=== PATIENT | male | born 1980 | race Two or more races ===

== ENCOUNTER 2017-05-28 13:26 | Inpatient (IN) | payer OTHER ==
[2017-05-28] MEDS ORDERED: ONDANSETRON 4 MG/2 ML VIAL IVPB ONE (13:35)
[2017-05-28] MEDS ORDERED: morphine CARPU-JECT 4 MG/1 ML DISP.SYRIN IVPUSH ONE ×2 (13:35→15:30)
[2017-05-28] MEDS ORDERED: KETOROLAC TROMETHAMINE 30 MG/1 ML VIAL IVPUSH ONE (13:35)
[2017-05-28] MEDS ORDERED: SODIUM CHLORIDE 1,000 ML IV STA (13:35)
[2017-05-28] MEDS ORDERED: morphine SULFATE 4 MG/ML VIAL ONE ×2 (13:36→15:33)
--- NOTE | 2017-05-28 13:39 | PDOC ---
History of Present Illness - History of Present Illness Initial Comments: 05/28/17 14:49 37 year old male, with no significant past medical history, who presents to the emergency room [facility] for right sided flank pain. He describes the pain as sharp and 10/10 in severity that started last night. The patient is a poor historian. Denies dysuria, hematuria, urinary frequency. Denies nausea, vomiting. Denies fever, chills. Denies chest pain. Allergies: NKA PCP: None <Penny Lam - Last Filed: 05/28/17 16:36> - General History Source: Patient Exam Limitations: No Limitations <Reginald Cisneros - Last Filed: 05/28/17 17:07> - General Stated Complaint: SOB Time Seen by Provider: 05/28/17 13:34 Past History <Penny Lam - Last Filed: 05/28/17 16:36> - Suicide/Smoking/Psychosocial Hx Smoking Status: Yes Smoking History: Current every day smoker Number of Cigarettes Smoked Daily: 7 <Reginald Cisneros - Last Filed: 05/28/17 17:07> - Past Medical History Allergies/Adverse Reactions: Allergies Allergy/AdvReac Type Severity Reaction Status Date / Time No Known Allergies Allergy Verified 11/18/12 18:27 Home Medications: Ambulatory Orders NK [No Known Home Medication] 05/28/17 Review of Systems - Review of Systems Able to Perform ROS?: Yes Comments:: 05/28/17 14:50 GENERAL/CONSTITUTIONAL: No fever or chills. No weakness. HEAD, EYES, EARS, NOSE AND THROAT: No change in vision. No ear pain or discharge. No sore throat. CARDIOVASCULAR: No chest pain or shortness of breath. RESPIRATORY: No cough, wheezing, or hemoptysis. GASTROINTESTINAL: No nausea, vomiting, diarrhea or constipation. GENITOURINARY:+ right sided flank pain that radiates to the right groin. No dysuria, frequency, or change in urination. MUSCULOSKELETAL: No joint or muscle swelling or pain. No neck pain SKIN: No rash NEUROLOGIC: No headache, vertigo, loss of consciousness, or change in strength/ sensation. ENDOCRINE: No increased thirst. No abnormal weight change. HEMATOLOGIC/LYMPHATIC: No anemia, easy bleeding, or history of blood clots. ALLERGIC/IMMUNOLOGIC: No hives or skin allergy. <KeonsaulPenny - Last Filed: 05/28/17 16:36> *Physical Exam - Vital Signs Last Vital Signs Temp Pulse Resp BP Pulse Ox 100.4 F H 106 H 24 150/82 95 05/28/17 13:45 05/28/17 13:45 05/28/17 13:45 05/28/17 13:45 05/28/17 13:50 - Physical Exam Comments: 05/28/17 14:50 GENERAL: Awake, alert, and fully oriented. +Uncomfortable appearing HEAD: No signs of trauma EYES: PERRLA, EOMI, sclera anicteric, conjunctiva clear ENT: Auricles normal inspection, hearing grossly normal, nares patent, oropharynx clear without exudates. Moist mucosa NECK: Normal ROM, supple, no lymphadenopathy, JVD, or masses LUNGS: Breath sounds equal, clear to auscultation bilaterally. No wheezes, and no crackles HEART: Regular rate and rhythm, normal S1 and S2, no murmurs, rubs or gallops ABDOMEN: Soft, nontender, normoactive bowel sounds. No guarding, no rebound. No masses BACK: +Right flank pain with right CVA tenderness EXTREMITIES: Normal range of motion, no edema. No clubbing or cyanosis. No cords, erythema, or tenderness NEUROLOGICAL: Cranial nerves II through XII grossly intact. Normal speech, normal gait SKIN: Warm, Dry, normal turgor, no rashes or lesions noted. <KeonsaulPenny - Last Filed: 05/28/17 16:36> Heart Score/ECG Review #1 ECG reviewed & interpreted by me at: 17:00 05/28/17 17:06 NSR 87, LVH, no std/blayne, T wave aVF, QTC 418 msec <Reginald Cisneros - Last Filed: 05/28/17 17:07> ED Treatment Course - LABORATORY CBC & Chemistry Diagram: 05/28/17 13:40 05/28/17 13:40 - ADDITIONAL ORDERS Additional order review: Laboratory Results 05/28/17 13:40 Sodium 139 Potassium 4.1 Chloride 100 Carbon Dioxide 29 Anion Gap 10 BUN 10 Creatinine 0.9 Creat Clearance w eGFR > 60 Random Glucose 97 Calcium 9.0 Total Bilirubin 0.7 AST 19 ALT 35 Alkaline Phosphatase 101 Total Protein 7.8 Albumin 3.8 Lipase 100 05/28/17 13:40 RBC 4.72 MCV 93.3 MCHC 33.3 RDW 12.6 MPV 8.7 Neutrophils % 88.0 H Lymphocytes % 6.6 L Monocytes % 4.8 Eosinophils % 0.3 Basophils % 0.3 - Medications Given in the ED: ED Medications Discontinued Medications Generic Name Dose Route Start Last Admin Trade Name Frefrancis PRN Reason Stop Dose Admin Sodium Chloride 1,000 mls @ 1,000 mls/hr 05/28/17 13:35 05/28/17 13:47 Normal Saline - IV 05/28/17 14:34 1,000 mls/hr ASDIR STA Administration Ketorolac Tromethamine 30 mg 05/28/17 13:35 05/28/17 13:41 Toradol Injection - IVPUSH 05/28/17 13:36 30 mg ONCE ONE Administration Morphine Sulfate 4 mg 05/28/17 13:35 05/28/17 13:41 Morphine Injection - IVPUSH 05/28/17 13:36 4 mg ONCE ONE Administration Ondansetron HCl 4 mg 05/28/17 13:35 05/28/17 13:47 Zofran Injection IVPB 05/28/17 13:36 4 mg ONCE ONE Administration <Penny Lam - Last Filed: 05/28/17 16:36> - LABORATORY CBC & Chemistry Diagram: 05/28/17 13:40 05/28/17 13:40 - RADIOLOGY Radiology Studies Ordered: Category Date Time Status SPIRAL- RENAL-STONE CT [CT] Stat CT Scan 05/28/17 13:35 Ordered <Reginald Cisneros - Last Filed: 05/28/17 17:07> Medical Decision Making - Medical Decision Making 05/28/17 13:37 A portion of this note was documented by scribe services under my direction. I have reviewed the details of the note, within reason, and agree with the documentation with the following case summary and management plan written by me. Patient treated in the ED. Nursing notes are reviewed and incorporated into the medical decision-making. Vital signs reviewed. Peripheral IV access obtained by the nurse, laboratory studies are drawn and sent, reviewed and interpreted by myself. 37 year old M c/ no past medical history presents with right flank pain since yesterday night. Reports is a persistent "strong" pain in the right flank. Denies nausea, fevers. Does NOT have SOB. Denies dysuria, fevers. Pt appears to most likely have renal colic. Will r/o pyelonephritis, infected kidney stone. Labs, UA, pain control, spiral CT and reassess. 05/28/17 16:45 CBC, BMP 05/28/17 13:40 05/28/17 13:40 CMP Sodium 139 mmol/L (136-145) 05/28/17 13:40 Potassium 4.1 mmol/L (3.5-5.1) 05/28/17 13:40 Chloride 100 mmol/L (98-107) 05/28/17 13:40 Carbon Dioxide 29 mmol/L (21-32) 05/28/17 13:40 Anion Gap 10 (8-16) 05/28/17 13:40 BUN 10 mg/dL (7-18) 05/28/17 13:40 Creatinine 0.9 mg/dL (0.7-1.3) 05/28/17 13:40 Creat Clearance w eGFR > 60 (>60) 05/28/17 13:40 Random Glucose 97 mg/dL (74-106) 05/28/17 13:40 Calcium 9.0 mg/dL (8.5-10.1) 05/28/17 13:40 Total Bilirubin 0.7 mg/dL (0.2-1.0) 05/28/17 13:40 AST 19 U/L (15-37) 05/28/17 13:40 ALT 35 U/L (12-78) 05/28/17 13:40 Alkaline Phosphatase 101 U/L (45-117) 05/28/17 13:40 Total Protein 7.8 g/dl (6.4-8.2) 05/28/17 13:40 Albumin 3.8 g/dl (3.4-5.0) 05/28/17 13:40 Lipase 100 U/L (73-393) 05/28/17 13:40 Urine Test Results Urine Color Dkyellow 05/28/17 15:41 Urine Appearance Cloudy 05/28/17 15:41 Urine pH 5.0 (5.0-8.0) 05/28/17 15:41 Ur Specific [place] 1.023 (1.001-1.035) 05/28/17 15:41 Urine Protein Negative (NEGATIVE) 05/28/17 15:41 Urine Glucose (UA) Negative (NEGATIVE) 05/28/17 15:41 Urine Ketones Negative (NEGATIVE) 05/28/17 15:41 Urine Blood Negative (NEGATIVE) 05/28/17 15:41 Urine Nitrite Negative (NEGATIVE) 05/28/17 15:41 Urine Bilirubin Negative (NEGATIVE) 05/28/17 15:41 Chest xray concerning for atelectasis vs. infiltrates. CT abdomen and pelvis. No kidney stones, but noted with bilateral PNA. O2 saturation of 92% here. Pt reports feeling better. However, given bilateral PNA and elevated WBC. Will admit the patient. RUQ ultrasound ordered to evaluate biliary pathology. Case discussed with Dr. Treadwell who accepts the patient for med/surg admission. Case discussed in detail with admitting physician including history, physical exam and ancillary studies. Admitting physician has assumed care for the patient, will follow all pending diagnostics and will complete the evaluation and treatment. <Reginald Cisneros - Last Filed: 05/28/17 17:07> *DC/Admit/Observation/Transfer - Attestations Scribe Attestion: 05/28/17 14:51 Documentation prepared by GASPER Antoine, acting as medical research tech for Reginald Cisneros MD. <Penny Lam - Last Filed: 05/28/17 16:36> - Discharge Dispostion Admit: Yes <Reginald Cisneros - Last Filed: 05/28/17 17:07> Diagnosis at time of Disposition: Pneumonia Qualifiers: Pneumonia type: due to unspecified organism Laterality: bilateral Lung location : unspecified part of lung Qualified Code(s): J18.9 - Pneumonia, unspecified organism - Discharge Dispostion Condition at time of disposition: Stable
[2017-05-28] MEDS ORDERED: ONDANSETRON 4 MG/2 ML VIAL ONE (13:42)
[2017-05-28 13:47] VITALS: BMI 39.1
[2017-05-28 14:05] LABS: BASO % 0.3 % (0-2.0); EOS % 0.3 % (0-4.5); MCH 31.1 pg (25.7-33.7); MCHC 33.3 g/dl (32.0-35.9); MEAN CELL VOLUME 93.3 fl (80-96); MEAN PLT VOLUME 8.7 fl (7.5-11.1); PLATELET COUNT 205 K/MM3 (134-434); RDW 12.6 % (11.9-15.9); WHITE BLOOD COUNT 19.2 K/mm3 (4.0-10.0)
[2017-05-28 14:16] LABS: ALBUMIN 3.8 g/dl (3.4-5.0); ANION GAP 10 (8-16); BILIRUBIN,TOTAL 0.7 mg/dL (0.2-1.0); CO2 29 mmol/L (21-32); CREATININE 0.9 mg/dL (0.7-1.3); GLUCOSE,RANDOM 97 mg/dL (74-106); SGOT/AST 19 U/L (15-37); SGPT/ALT 35 U/L (12-78); TOT PROT 7.8 g/dl (6.4-8.2)
[2017-05-28 14:17] LABS: ALK PHOS 101 U/L (45-117)
[2017-05-28 16:18] LABS: URINE APPEARANCE CLOUDY; URINE BILIRUBIN NEGATIVE (NEGATIVE); URINE BLOOD NEGATIVE (NEGATIVE); URINE COLOR DKYELLOW; URINE GLUCOSE (UA) NEGATIVE (NEGATIVE); URINE KETONE NEGATIVE (NEGATIVE); URINE NITRITE NEGATIVE (NEGATIVE); URINE PROTEIN NEGATIVE (NEGATIVE); URINE UROBILINOGEN NEGATIVE mg/dL (0.2-1.0)
[2017-05-28] MEDS ORDERED: AZITHROMYCIN IVPB 500 MG in DEXTROSE 5%-WATER - 250 ML IVPB ONE (16:28)
[2017-05-28] MEDS ORDERED: CEFTRIAXONE 1 GM in DEXTROSE 5%-WATER - 50 ML IVPB ONE (16:28)
[2017-05-28] MEDS ORDERED: ACETAMINOPHEN 1000 MG/100 ML VIAL (NON FORMULARY) IVPB ONE (16:35)
[2017-05-28] MEDS ORDERED: CEFTRIAXONE 1 GM/50 ML BAG ONE (16:45)
[2017-05-28] MEDS ORDERED: AZITHROMYCIN IVPB 250 ML IVPB ONE (16:45)
[2017-05-28 21:06] LABS: URINE LEUK ESTERASE Negative (NEGATIVE)
--- NOTE | 2017-05-28 22:28 | HP ---
Admitting History and Physical - Primary Care Physician PCP: Jennifer Treadwell - Admission History of Present Illness: 37 year old male, with no significant past medical history, who presents to the emergency room BIBA for right sided flank pain. He describes the pain as sharp and 10/10 in severity that started last night. The patient is a poor historian. Denies dysuria, hematuria, urinary frequency. Denies nausea, vomiting. Denies fever, chills. Denies chest pain. - Smoking History Smoking history: Current every day smoker Aproximately how many cigarettes per day: 7 - Alcohol/Substance Use Hx Alcohol Use: No Home Medications - Allergies Allergies/Adverse Reactions: Allergies Allergy/AdvReac Type Severity Reaction Status Date / Time No Known Allergies Allergy Verified 11/18/12 18:27 - Home Medications Home Medications: Ambulatory Orders NK [No Known Home Medication] 05/28/17 Physical Examination Vital Signs: Vital Signs Temperature 99.4 F 05/28/17 19:43 Pulse Rate 83 05/28/17 19:43 Respiratory Rate 18 05/28/17 19:43 Blood Pressure 122/61 05/28/17 19:43 O2 Sat by Pulse Oximetry (%) 96 05/28/17 19:43 Constitutional: Yes: No Distress HENT: Yes: Atraumatic Neck: Yes: Tenderness Cardiovascular: Yes: Regular Rate and Rhythm Respiratory: Yes: Rhonchi Gastrointestinal: Yes: Normal Bowel Sounds Extremities: Yes: WNL Neurological: Yes: Alert, Oriented Labs: CBC, BMP 05/28/17 13:40 05/28/17 13:40 Problem List - Problems (1) Pneumonia Assessment/Plan: on iv abx flu negative bcx negative Code(s): J18.9 - PNEUMONIA, UNSPECIFIED ORGANISM Qualifiers: Pneumonia type: due to unspecified organism Laterality: bilateral Lung location: unspecified part of lung Qualified Code(s): J18.9 - Pneumonia, unspecified organism Assessment/Plan Laboratory Tests 05/28/17 05/28/17 05/28/17 13:40 13:40 15:41 WBC 19.2 H RBC 4.72 Hgb 14.7 Hct 44.1 MCV 93.3 MCH 31.1 MCHC 33.3 RDW 12.6 Plt Count 205 MPV 8.7 Neutrophils % 88.0 H Lymphocytes % 6.6 L Monocytes % 4.8 Eosinophils % 0.3 Basophils % 0.3 Sodium 139 Potassium 4.1 Chloride 100 Carbon Dioxide 29 Anion Gap 10 BUN 10 Creatinine 0.9 Creat Clearance w eGFR > 60 Random Glucose 97 Lactic Acid Calcium 9.0 Total Bilirubin 0.7 AST 19 ALT 35 Alkaline Phosphatase 101 Total Protein 7.8 Albumin 3.8 Lipase 100 Urine Color Dkyellow Urine Appearance Cloudy Urine pH 5.0 Ur Specific [place] 1.023 Urine Protein Negative Urine Glucose (UA) Negative Urine Ketones Negative Urine Blood Negative Urine Nitrite Negative Urine Bilirubin Negative Urine Urobilinogen Negative Ur Leukocyte Esterase Negative 05/28/17 16:40 WBC RBC Hgb Hct MCV MCH MCHC RDW Plt Count MPV Neutrophils % Lymphocytes % Monocytes % Eosinophils % Basophils % Sodium Potassium Chloride Carbon Dioxide Anion Gap BUN Creatinine Creat Clearance w eGFR Random Glucose Lactic Acid 1.4 Calcium Total Bilirubin AST ALT Alkaline Phosphatase Total Protein Albumin Lipase Urine Color Urine Appearance Urine pH Ur Specific [place] Urine Protein Urine Glucose (UA) Urine Ketones Urine Blood Urine Nitrite Urine Bilirubin Urine Urobilinogen Ur Leukocyte Esterase Active Medications Generic Name Dose Route Start Last Admin Trade Name Connerq PRN Reason Stop Dose Admin Acetaminophen 650 mg 06/01/17 18:50 Tylenol - PO Q6H PRN FEVER OR PAIN Albuterol/Ipratropium 1 amp 06/01/17 18:50 Duoneb - NEB Q4H PRN Chlorhexidine Gluconate 1 applic 06/01/17 22:00 Hibiclens For Decolonization - TP HS ROXANE Azithromycin 500 mg/ Dextrose 250 mls @ 250 mls/hr 06/01/17 18:00 06/01/17 17 :58 IVPB 250 mls/hr DAILY ROXANE Administration Ceftriaxone Sodium 2 gm/ 100 mls @ 200 mls/hr 06/02/17 10:00 Dextrose IVPB DAILY ROXANE Ketorolac Tromethamine 30 mg 06/01/17 18:50 Toradol Injection - IVPUSH 06/03/17 12:27 Q8H PRN PAIN Mupirocin 1 applic 06/01/17 22:00 Bactroban Ointment (For Decolonization) - NS 06/06/17 21:59 BID ROXANE
[2017-05-29] MEDS ORDERED: PT OWN MED DRAWER 7, Y5N ONE ×2 (08:56→09:56)
[2017-05-29 09:12] LABS: BASO % 0.3 % (0-2.0); EOS % 0.1 % (0-4.5); MCH 31.3 pg (25.7-33.7); MCHC 33.3 g/dl (32.0-35.9); MEAN PLT VOLUME 8.9 fl (7.5-11.1); PLATELET COUNT 175 K/MM3 (134-434); RDW 12.9 % (11.9-15.9); WHITE BLOOD COUNT 17.9 K/mm3 (4.0-10.0)
[2017-05-29 09:32] LABS: ALBUMIN 2.8 g/dl (3.4-5.0); ANION GAP 8 (8-16); BILIRUBIN,TOTAL 0.9 mg/dL (0.2-1.0); CALCIUM 8.6 mg/dL (8.5-10.1); CO2 28 mmol/L (21-32); CREATININE 1.1 mg/dL (0.7-1.3); GLUCOSE,RANDOM 117 mg/dL (74-106); SGOT/AST 10 U/L (15-37); SGPT/ALT 21 U/L (12-78); TOT PROT 6.3 g/dl (6.4-8.2)
[2017-05-29 09:33] LABS: ALK PHOS 78 U/L (45-117)
[2017-05-29] MEDS ORDERED: CEFTRIAXONE 1 G/50 ML PREMIX 50 ML IVPB SCH (10:00)
[2017-05-29] MEDS: ACETAMINOPHEN 325 MG TABLET (FP) PO PRN ×2 (10:05→16:06)
[2017-05-29] MEDS: AZITHROMYCIN IVPB 500 MG in DEXTROSE 5%-WATER - 250 ML IVPB SCH (10:21)
--- NOTE | 2017-05-29 10:25 | EKG ---
Test Reason : Blood Pressure : / mmHG Vent. Rate : 087 BPM Atrial Rate : 087 BPM P-R Int : 136 ms QRS Dur : 106 ms QT Int : 348 ms P-R-T Axes : 019 -04 003 degrees QTc Int : 418 ms NORMAL SINUS RHYTHM MODERATE VOLTAGE CRITERIA FOR LVH, MAY BE NORMAL VARIANT BORDERLINE ECG NO PREVIOUS ECGS AVAILABLE Confirmed by MIC ALFARO, KIANA ([id number]) on 05/29/2017 10:25:31 AM Referred By: Confirmed By:KIANA HAILE MD
--- NOTE | 2017-05-29 12:26 | CON.PULM ---
Consult Consult Specialty:: PULMONARY Referred by:: Dr. Treadwell Reason for Consultation:: pneumonia - History of Present Illness Chief Complaint: right flank pain History of Present Illness: 37yo male without significant past medical history who was admitted with right flank pain x 2 days. Pain sharp, worse with movement and deep inspiration. + fevers and chills. Nonproductive cough. No sick contacts. Did not receive flu shot. He is a 1 PPD smoker, not currently working. - History Source History Provided By: Patient, Family Member, Medical Record Limitations to Obtaining History: Language Barrier - Alcohol/Substance Use Hx Alcohol Use: No - Smoking History Smoking history: Current every day smoker Aproximately how many cigarettes per day: 7 Home Medications - Allergies Allergies/Adverse Reactions: Allergies Allergy/AdvReac Type Severity Reaction Status Date / Time No Known Allergies Allergy Verified 11/18/12 18:27 - Home Medications Home Medications: Ambulatory Orders NK [No Known Home Medication] 05/28/17 Review of Systems - Review of Systems Constitutional: reports: Chills, Fever. denies: Weakness Eyes: denies: Recent Change in Vision HENT: denies: Nasal Congestion, Throat Pain Neck: denies: Stiffness, Tenderness Cardiovascular: denies: Chest Pain, Palpitations, Shortness of Breath Respiratory: reports: Cough. denies: Wheezing Gastrointestinal: denies: Abdominal Pain, Nausea, Vomiting Genitourinary: reports: Flank Pain. denies: Dysuria, Hematuria Musculoskeletal: reports: Back Pain Neurological: denies: Dizziness, Headache Physical Exam Vital Sings: Vital Signs Temperature 99.6 F 05/29/17 09:00 Pulse Rate 90 05/29/17 09:00 Respiratory Rate 20 05/29/17 09:00 Blood Pressure 127/64 05/29/17 09:00 O2 Sat by Pulse Oximetry (%) 95 05/28/17 22:00 Constitutional: Yes: Calm Eyes: Yes: Conjunctiva Clear, EOM Intact HENT: Yes: Atraumatic, Normocephalic Neck: Yes: Supple, Trachea Midline Cardiovascular: Yes: Regular Rate and Rhythm Respiratory: Yes: Regular, Diminished (decreased at the bases) ...Clubbing: No Gastrointestinal: Yes: Normal Bowel Sounds, Soft. No: Tenderness Edema: No Labs: CBC, BMP 05/29/17 08:25 05/29/17 08:25 Imaging - Results Chest X-ray: Report Reviewed, Image Reviewed (bibasilar infiltrates) Cat Scan: Report Reviewed, Image Reviewed Problem List - Problems (1) Pneumonia Code(s): J18.9 - PNEUMONIA, UNSPECIFIED ORGANISM Qualifiers: Pneumonia type: due to unspecified organism Laterality: bilateral Lung location: unspecified part of lung Qualified Code(s): J18.9 - Pneumonia, unspecified organism Assessment/Plan Community Acquired Pneumonia Flank Pain likely from pleurisy - agree with ceftriaxone/azithromycin - f/u cultures - send urinary antigens - pain control - incentive spirometry - DVT prophylaxis Thank you for this consult Jay Lawton MD
--- NOTE | 2017-05-29 14:49 | CON.ID ---
Consult Consult Specialty:: Infectious Disease Reason for Consultation:: PNA - History of Present Illness Chief Complaint: Rt flank pain History of Present Illness: 37 y.o. male with no specific PMH presents with c/o of severe, sharp Rt flank pain that began 2 nights ago. States pain woke him up from sleep and on sunday could not walk due to pain. Reports that pain worsens with deep breaths. Denies productive cough, fever, chills. He also denies dysuria/urinary frequency, abd pain/n/v/d. In ER noted to have elevated wbc count and was febrile (tmax 100.9)/ tachycardic. He smokes almost 1 PPD and smokes crack. No recent travel/sick contacts. 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: Alzheimer's, CVA, Dementia, Migraine, Multiple Sclerosis, Peripheral Neuropathy, Parkinson's, Seizure, Syncope, TIA, Vertigo, Other Cardio/Vascular: No: AFIB, Aneurysm, Aortic Insufficiency, Aortic Stenosis, CAD , CHF, Deep Vein Thrombosis, HTN, Hyperlipdemia, SC, Mitral Insufficiency, Mitral Stenosis, Murmur, Pulmonary Hypertension, Other Pulmonary: No: Asthma, Bronchitis, Cancer, COPD, O2 Dependent, Pneumonia, Previously Intubated, Pulmonary Embolus, Pulmonary Fibrosis, Sleep Apnea, Other Gastrointestinal: No: Ascites, Cancer, Constipation, Crohn's Disease, Diverticulitis, Diverticulosis, Esophageal Varices, Gastritis, GERD, GI Bleed, Hemorrhoids, Hiatal Hernia, Inflamatory Bowel Disease, Irritable Bowel Disease, Pancreatitis, Peptic Ulcer Disease, Ulcerative Colitis, Other Hepatobiliary: No: Cirrhosis, Cholelithiasis, Cholecystitis, Choledocholithiasis , Hepatitis A, Hepatitis B, Hepatitis C, Other Renal/: No: Renal Failure, Renal Inusuff, BPH, Cancer, Hematuria, Hemodialysis , Neurogenic Bladder, Renal Calculi, UTI, Other Heme/Onc: No: Anemia, B12 Deficiency, Bleeding Disorder, Cancer, Current Chemotherapy, Current Radiation Therapy, Hemochromatosis, Hypercoaguable State, Myeloproliferative Synd, Sickle Cell Disease, Sickle Cell Trait, Thrombocytopenia, Other Infectious Disease: No: AIDS, C-Diff, Herpes Zoster, HIV, MRSA, STD's, Tuberculosis, VREF, Other Psych: No: Addictions, Anxiety, Bipolar, Depression, Panic, Psychosis, Schizophrenia, Other Musculoskeletal: No: Bursitis, Chronic low back pain, Hemiparesis, Hemiplegia, Osteoarthritis, Paraplegia, Other Rheumatology: No: Fibromyalgia, Gout, Lupus, Rheumatoid Arthritis, Sarcoidosis, Vasculitis, Other ENT: No: Allergic Rhinitis, Sinusitis, Other Endocrine: No: [place]'s Disease, Michael's Disease, Diabetes Insipidus, Diabetes Mellitus, Hyperparathyroidism, Hyperthyroidism, Hypothyroidism, Osteopenia, SIADH, Other Dermatology: No: Basal Cell, Cellulitis, Eczema, Melanoma, Psoriasis, Squamous Cell, Other - Past Surgical History Past Surgical History: No: None, AAA Repair, AICD, Amputation, Appendectomy, Arthrosocopy, AV Fistula/Graft, Bariatric Surgery, Breast Biopsy, Bypass, CABG, Carotid Endarterectomy, Cataract Removal, Cholecystectomy, Colectomy, Colonoscopy, Colostomy, Craniotomy, , Cystectomy, Hernia Repair, Hysterectomy, Ileal Conduit, Ileosotomy, Joint Replacement, Kidney Transplant, Laminectomy, Liver Transplant, Mastectomy, Nephrectomy, Oopherectomy, Orchiectomy, Permanent Pacemaker, Prostatectomy, Splenectomy, Stent, Thoracotomy , TURP, Tonsillectomy, Tubal Ligation, Upper Endoscopy, Valve Replacement, Vasectomy, Vein Stripping/Ligation - Alcohol/Substance Use Hx Alcohol Use: No Date of Last Use: 05/26/17 (smokes crack) - Smoking History Smoking history: Current every day smoker Aproximately how many cigarettes per day: 7 - Social History Usual Living Arrangement: Other (with parents, , and child) History of Recent Travel: No Home Medications - Allergies Allergies/Adverse Reactions: Allergies Allergy/AdvReac Type Severity Reaction Status Date / Time No Known Allergies Allergy Verified 11/18/12 18:27 - Home Medications Home Medications: Ambulatory Orders NK [No Known Home Medication] 05/28/17 Family Disease History - Family Disease History Family History: Unable to Obtain Review of Systems - Review of Systems Constitutional: reports: Fever Eyes: reports: No Symptoms HENT: reports: No Symptoms Neck: reports: No Symptoms Cardiovascular: reports: No Symptoms Gastrointestinal: reports: No Symptoms (Rt flank pain), Other Genitourinary: reports: No Symptoms Musculoskeletal: reports: No Symptoms Integumentary: reports: No Symptoms Neurological: reports: No Symptoms Endocrine: reports: No Symptoms Hematology/Lymphatic: reports: No Symptoms Psychiatric: reports: No Symptoms Pain Intensity: 10 Physical Exam Vital Signs: Vital Signs Temperature 99.6 F 05/29/17 09:00 Pulse Rate 90 05/29/17 09:00 Respiratory Rate 20 05/29/17 09:00 Blood Pressure 127/64 05/29/17 09:00 O2 Sat by Pulse Oximetry (%) 95 05/28/17 22:00 Constitutional: Yes: No Distress Eyes: Yes: WNL HENT: Yes: WNL Neck: Yes: Supple Cardiovascular: Yes: Regular Rate and Rhythm Respiratory: Yes: Cough, Rales (bases b/l), Other (pleuritic chest pain) Gastrointestinal: Yes: Normal Bowel Sounds, Soft, Other (Rt flank pain with deep inspiration) Renal/: Yes: WNL Musculoskeletal: Yes: WNL Extremities: Yes: WNL Integumentary: Yes: WNL Neurological: Yes: Alert, Oriented Psychiatric: Yes: Alert Labs: CBC, BMP 05/29/17 08:25 05/29/17 08:25 CMP Sodium 137 mmol/L (136-145) 05/29/17 08:25 Potassium 3.9 mmol/L (3.5-5.1) 05/29/17 08:25 Chloride 101 mmol/L (98-107) 05/29/17 08:25 Carbon Dioxide 28 mmol/L (21-32) 05/29/17 08:25 Anion Gap 8 (8-16) 05/29/17 08:25 BUN 15 mg/dL (7-18) D 05/29/17 08:25 Creatinine 1.1 mg/dL (0.7-1.3) D 05/29/17 08:25 Creat Clearance w eGFR > 60 (>60) 05/29/17 08:25 Random Glucose 117 mg/dL (74-106) H D 05/29/17 08:25 Lactic Acid 1.4 mmol/L (0.4-2.0) 05/28/17 16:40 Calcium 8.6 mg/dL (8.5-10.1) 05/29/17 08:25 Total Bilirubin 0.9 mg/dL (0.2-1.0) D 05/29/17 08:25 AST 10 U/L (15-37) L D 05/29/17 08:25 ALT 21 U/L (12-78) D 05/29/17 08:25 Alkaline Phosphatase 78 U/L (45-117) D 05/29/17 08:25 Total Protein 6.3 g/dl (6.4-8.2) L 05/29/17 08:25 Albumin 2.8 g/dl (3.4-5.0) L D 05/29/17 08:25 Lipase 100 U/L (73-393) 05/28/17 13:40 Microbiology 05/28/17 19:40 Nasopharyngeal Swab Influenza Types A,B Antigen (JAHAIRA) - Final 05/28/17 19:40 Nasopharyngeal Swab - Final Imaging - Results Chest X-ray: Report Reviewed Cat Scan: Report Reviewed Problem List - Problems (1) Leukocytosis Code(s): D72.829 - ELEVATED WHITE BLOOD CELL COUNT, UNSPECIFIED (2) Fever Code(s): R50.9 - FEVER, UNSPECIFIED (3) Pneumonia Code(s): J18.9 - PNEUMONIA, UNSPECIFIED ORGANISM Qualifiers: Pneumonia type: due to unspecified organism Laterality: bilateral Lung location: unspecified part of lung Qualified Code(s): J18.9 - Pneumonia, unspecified organism Assessment/Plan 37 y.o. male with Rt side/flank/back pain , pleuritic chest pain x 2 days Bibasilar PNA - increase Ceftriaxone to 2 g IV daily, continue zithromax - monitor cbc trend, vitals - urinary antigens currently stable will f/u
[2017-05-29] MEDS ORDERED: CEFTRIAXONE 1 GM in DEXTROSE 5%-WATER - 50 ML IVPB ONE (15:06)
[2017-05-29] MEDS ORDERED: CEFTRIAXONE 1 G/50 ML PREMIX 50 ML IVPB ONE (15:15)
[2017-05-29] MEDS: KETOROLAC TROMETHAMINE 30 MG/1 ML VIAL IVPUSH PRN (16:51)
[2017-05-29] MEDS: VANCOMYCIN 1,250 MG in DEXTROSE 5%-WATER - 250 ML IVPB SCH (17:32)
--- NOTE | 2017-05-29 18:49 | PN ---
Progress Note, Physician History of Present Illness: feeling better - Current Medication List Current Medications: Active Medications Acetaminophen (Tylenol -) 650 mg PO Q6H PRN PRN Reason: FEVER OR PAIN Last Admin: 05/29/17 16:06 Dose: 650 mg Azithromycin 500 mg/ Dextrose 250 mls @ 250 mls/hr IVPB DAILY [facility] Last Admin: 05/29/17 10:21 Dose: 250 mls/hr Ceftriaxone Sodium 2 gm/ (Dextrose) 100 mls @ 200 mls/hr IVPB DAILY [facility] Vancomycin HCl 1,250 mg/ (Dextrose) 250 mls @ 166.667 mls/hr IVPB Q12H [facility] PRN Reason: Protocol Last Admin: 05/29/17 17:32 Dose: 166.667 mls/hr Ketorolac Tromethamine (Toradol Injection -) 30 mg IVPUSH Q8H PRN PRN Reason: PAIN Stop: 06/03/17 12:27 Last Admin: 05/29/17 16:51 Dose: 30 mg - Objective Vital Signs: Vital Signs Temperature 99.6 F 05/29/17 09:00 Pulse Rate 90 05/29/17 09:00 Respiratory Rate 20 05/29/17 09:00 Blood Pressure 127/64 05/29/17 09:00 O2 Sat by Pulse Oximetry (%) 91 L 05/29/17 09:45 Constitutional: Yes: No Distress HENT: Yes: Atraumatic Neck: Yes: Supple Cardiovascular: Yes: Regular Rate and Rhythm Respiratory: Yes: Rhonchi Gastrointestinal: Yes: Normal Bowel Sounds Extremities: Yes: WNL Neurological: Yes: Alert, Oriented Labs: CBC, BMP 05/29/17 08:25 05/29/17 08:25 Problem List - Problems (1) Pneumonia Assessment/Plan: on iv abx flu negative bcx negative Code(s): J18.9 - PNEUMONIA, UNSPECIFIED ORGANISM Qualifiers: Pneumonia type: due to unspecified organism Laterality: bilateral Lung location: unspecified part of lung Qualified Code(s): J18.9 - Pneumonia, unspecified organism
[2017-05-29] MEDS ORDERED: FUROSEMIDE 40 MG/4 ML INJECTABLE VIAL IVPUSH ONE (19:36)
[2017-05-29] MEDS ORDERED: CHLORHEXIDINE GLUCONATE 4% CLEANSER FOR DECOLONIZATION TP SCH (22:00)
[2017-05-29] MEDS: ALBUTEROL SO4 2.5/IPRATROPIUM 0.5 INH SOL 3 ML VIAL.NEB. NEB PRN (22:21)
[2017-05-29] MEDS: MUPIROCIN 2% TOPICAL OINTMENT FOR DECOLONIZATION NS SCH (22:46)
[2017-05-30] MEDS: ACETAMINOPHEN 325 MG TABLET (FP) PO PRN ×2 (03:17→19:33)
[2017-05-30] MEDS: VANCOMYCIN 1,250 MG in DEXTROSE 5%-WATER - 250 ML IVPB SCH ×2 (06:03→16:58)
[2017-05-30] MEDS: ALBUTEROL SO4 2.5/IPRATROPIUM 0.5 INH SOL 3 ML VIAL.NEB. NEB PRN ×3 (06:32→20:11)
[2017-05-30] MEDS ORDERED: PT OWN MED DRAWER 7, Y5N ONE (10:30)
[2017-05-30 10:33] LABS: BASO % 0.3 % (0-2.0); EOS % 0.1 % (0-4.5); MCH 31.2 pg (25.7-33.7); MCHC 33.3 g/dl (32.0-35.9); MEAN CELL VOLUME 93.6 fl (80-96); MEAN PLT VOLUME 8.8 fl (7.5-11.1); PLATELET COUNT 162 K/MM3 (134-434); RDW 12.9 % (11.9-15.9); WHITE BLOOD COUNT 18.9 K/mm3 (4.0-10.0)
[2017-05-30] MEDS: CEFTRIAXONE 2 GM in DEXTROSE 5%-WATER - 100 ML IVPB SCH (11:06)
[2017-05-30] MEDS: AZITHROMYCIN IVPB 500 MG in DEXTROSE 5%-WATER - 250 ML IVPB SCH (11:06)
--- NOTE | 2017-05-30 13:47 | PN ---
Progress Note, Physician History of Present Illness: PULMONARY ALERT,SLOWLY IMPROVING,LESS CP,LESS COUGH - Current Medication List Current Medications: Active Medications Acetaminophen (Tylenol -) 650 mg PO Q6H PRN PRN Reason: FEVER OR PAIN Last Admin: 05/30/17 03:17 Dose: 650 mg Albuterol/Ipratropium (Duoneb -) 1 amp NEB Q4H PRN Last Admin: 05/30/17 10:00 Dose: 1 amp Chlorhexidine Gluconate (Hibiclens For Decolonization -) 1 applic TP HS [facility] Last Admin: 05/29/17 22:46 Dose: Not Given Azithromycin 500 mg/ Dextrose 250 mls @ 250 mls/hr IVPB DAILY [facility] Last Admin: 05/30/17 11:06 Dose: 250 mls/hr Ceftriaxone Sodium 2 gm/ (Dextrose) 100 mls @ 200 mls/hr IVPB DAILY [facility] Last Admin: 05/30/17 11:06 Dose: 200 mls/hr Vancomycin HCl 1,250 mg/ (Dextrose) 250 mls @ 166.667 mls/hr IVPB Q12H [facility] PRN Reason: Protocol Last Admin: 05/30/17 06:03 Dose: 166.667 mls/hr Ketorolac Tromethamine (Toradol Injection -) 30 mg IVPUSH Q8H PRN PRN Reason: PAIN Stop: 06/03/17 12:27 Last Admin: 05/29/17 16:51 Dose: 30 mg Mupirocin (Bactroban Ointment (For Decolonization) -) 1 applic NS BID [facility] Stop: 06/03/17 21:59 Last Admin: 05/29/17 22:46 Dose: Not Given - Objective Vital Signs: Vital Signs Temperature 99 F 05/30/17 10:00 Pulse Rate 96 H 05/30/17 10:00 Respiratory Rate 24 05/30/17 10:00 Blood Pressure 130/74 05/30/17 10:00 O2 Sat by Pulse Oximetry (%) 94 L 05/30/17 09:00 Constitutional: Yes: Well Nourished, Calm Eyes: Yes: WNL HENT: Yes: WNL Neck: Yes: WNL Cardiovascular: Yes: Regular Rate and Rhythm, S1, S2 Respiratory: Yes: Diminished Gastrointestinal: Yes: Normal Bowel Sounds, Soft Extremities: Yes: WNL Edema: No Labs: CBC, BMP 05/30/17 09:45 05/29/17 08:25 Assessment/Plan Problem List - Problems (1) Pneumonia Code(s): J18.9 - PNEUMONIA, UNSPECIFIED ORGANISM Qualifiers: Pneumonia type: due to unspecified organism Laterality: bilateral Lung location: unspecified part of lung Qualified Code(s): J18.9 - Pneumonia, unspecified organism Assessment/Plan Community Acquired Pneumonia Flank Pain likely from pleurisy - ceftriaxone/azithromycin - pain control - incentive spirometry - DVT prophylaxis DR HANSON
--- NOTE | 2017-05-30 16:13 | PN ---
Progress Note, Physician History of Present Illness: Pt says he feels a bit better today. Still with pain in Rt back, cough with deep inspiration but no acute respiratory distress. Tmax 101.6F, currently 99.2F. No chills or other specific complaints. - Current Medication List Current Medications: Active Medications Acetaminophen (Tylenol -) 650 mg PO Q6H PRN PRN Reason: FEVER OR PAIN Last Admin: 05/30/17 03:17 Dose: 650 mg Albuterol/Ipratropium (Duoneb -) 1 amp NEB Q4H PRN Last Admin: 05/30/17 10:00 Dose: 1 amp Chlorhexidine Gluconate (Hibiclens For Decolonization -) 1 applic TP HS [facility] Last Admin: 05/29/17 22:46 Dose: Not Given Azithromycin 500 mg/ Dextrose 250 mls @ 250 mls/hr IVPB DAILY [facility] Last Admin: 05/30/17 11:06 Dose: 250 mls/hr Ceftriaxone Sodium 2 gm/ (Dextrose) 100 mls @ 200 mls/hr IVPB DAILY [facility] Last Admin: 05/30/17 11:06 Dose: 200 mls/hr Vancomycin HCl 1,250 mg/ (Dextrose) 250 mls @ 166.667 mls/hr IVPB Q12H [facility] PRN Reason: Protocol Last Admin: 05/30/17 06:03 Dose: 166.667 mls/hr Ketorolac Tromethamine (Toradol Injection -) 30 mg IVPUSH Q8H PRN PRN Reason: PAIN Stop: 06/03/17 12:27 Last Admin: 05/29/17 16:51 Dose: 30 mg Mupirocin (Bactroban Ointment (For Decolonization) -) 1 applic NS BID [facility] Stop: 06/03/17 21:59 Last Admin: 05/29/17 22:46 Dose: Not Given - Objective Vital Signs: Vital Signs Temperature 99.2 F 05/30/17 14:12 Pulse Rate 106 H 05/30/17 14:12 Respiratory Rate 22 05/30/17 14:12 Blood Pressure 107/77 05/30/17 14:12 O2 Sat by Pulse Oximetry (%) 94 L 05/30/17 09:00 Constitutional: Yes: Mild Distress Neck: Yes: Supple Cardiovascular: Yes: Regular Rate and Rhythm Respiratory: Yes: Rales (bibasilar R>L) Gastrointestinal: Yes: Normal Bowel Sounds, Soft Genitourinary: Yes: WNL Musculoskeletal: Yes: WNL Extremities: Yes: WNL Integumentary: Yes: WNL Neurological: Yes: Alert, Oriented Labs: CBC, BMP 05/30/17 09:45 05/29/17 08:25 Problem List - Problems (1) Leukocytosis Code(s): D72.829 - ELEVATED WHITE BLOOD CELL COUNT, UNSPECIFIED (2) Fever Code(s): R50.9 - FEVER, UNSPECIFIED (3) Pneumonia Code(s): J18.9 - PNEUMONIA, UNSPECIFIED ORGANISM Qualifiers: Pneumonia type: due to unspecified organism Laterality: bilateral Lung location: unspecified part of lung Qualified Code(s): J18.9 - Pneumonia, unspecified organism Assessment/Plan 37 y.o. male with CAP, pleuritic chest janell, remains febrile but no acute distress at this time. - cont current antibiotics - monitor temperature curve/ vitals , wbc trend - repeat cbc in a.m.
[2017-05-30] MEDS: KETOROLAC TROMETHAMINE 30 MG/1 ML VIAL IVPUSH PRN (16:57)
[2017-05-30] MEDS: MUPIROCIN 2% TOPICAL OINTMENT FOR DECOLONIZATION NS SCH (16:59)
--- NOTE | 2017-05-30 17:32 | PN ---
Progress Note, Physician History of Present Illness: feeling better - Current Medication List Current Medications: Active Medications Acetaminophen (Tylenol -) 650 mg PO Q6H PRN PRN Reason: FEVER OR PAIN Last Admin: 05/30/17 03:17 Dose: 650 mg Albuterol/Ipratropium (Duoneb -) 1 amp NEB Q4H PRN Last Admin: 05/30/17 10:00 Dose: 1 amp Azithromycin 500 mg/ Dextrose 250 mls @ 250 mls/hr IVPB DAILY [facility] Last Admin: 05/30/17 11:06 Dose: 250 mls/hr Ceftriaxone Sodium 2 gm/ (Dextrose) 100 mls @ 200 mls/hr IVPB DAILY [facility] Last Admin: 05/30/17 11:06 Dose: 200 mls/hr Vancomycin HCl 1,250 mg/ (Dextrose) 250 mls @ 166.667 mls/hr IVPB Q12H [facility] PRN Reason: Protocol Last Admin: 05/30/17 16:58 Dose: 166.667 mls/hr Ketorolac Tromethamine (Toradol Injection -) 30 mg IVPUSH Q8H PRN PRN Reason: PAIN Stop: 06/03/17 12:27 Last Admin: 05/30/17 16:57 Dose: 30 mg - Objective Vital Signs: Vital Signs Temperature 99.2 F 05/30/17 14:12 Pulse Rate 106 H 05/30/17 14:12 Respiratory Rate 22 05/30/17 14:12 Blood Pressure 107/77 05/30/17 14:12 O2 Sat by Pulse Oximetry (%) 94 L 05/30/17 09:00 Constitutional: Yes: No Distress HENT: Yes: Atraumatic Neck: Yes: Supple Cardiovascular: Yes: Regular Rate and Rhythm Respiratory: Yes: Rhonchi Gastrointestinal: Yes: Normal Bowel Sounds Extremities: Yes: WNL Neurological: Yes: Alert, Oriented Labs: CBC, BMP 05/30/17 09:45 05/29/17 08:25 Problem List - Problems (1) Pneumonia Assessment/Plan: on iv abx flu negative bcx negative Code(s): J18.9 - PNEUMONIA, UNSPECIFIED ORGANISM Qualifiers: Pneumonia type: due to unspecified organism Laterality: bilateral Lung location: unspecified part of lung Qualified Code(s): J18.9 - Pneumonia, unspecified organism
[2017-05-31] MEDS: KETOROLAC TROMETHAMINE 30 MG/1 ML VIAL IVPUSH PRN ×3 (01:24→21:15)
[2017-05-31] MEDS ORDERED: PT OWN MED DRAWER 7, Y5N ONE ×2 (05:07→05:14)
[2017-05-31] MEDS: VANCOMYCIN 1,250 MG in DEXTROSE 5%-WATER - 250 ML IVPB SCH ×2 (05:14→17:50)
[2017-05-31] MEDS: AZITHROMYCIN IVPB 500 MG in DEXTROSE 5%-WATER - 250 ML IVPB SCH (09:46)
[2017-05-31] MEDS: CEFTRIAXONE 2 GM in DEXTROSE 5%-WATER - 100 ML IVPB SCH (09:46)
[2017-05-31] MEDS: ACETAMINOPHEN 325 MG TABLET (FP) PO PRN ×2 (13:17→23:59)
--- NOTE | 2017-05-31 13:22 | PN ---
Progress Note (short form) - Note Progress Note: PULMONARY Now on 50% ventimask. Tachypneic. Fever curve trending down. Last Vital Signs Temp Pulse Resp BP Pulse Ox 98.7 F 88 20 133/87 92 L 05/31/17 06:00 05/31/17 06:00 05/31/17 06:00 05/31/17 06:00 05/30/17 21:00 Gen: ill appearing Heart: RRR Lung: scattered rhonchi Abd: soft, nontender Ext: no edema CBC, BMP 05/30/17 09:45 05/29/17 08:25 Active Medications Acetaminophen (Tylenol -) 650 mg PO Q6H PRN PRN Reason: FEVER OR PAIN Last Admin: 05/31/17 13:17 Dose: 650 mg Albuterol/Ipratropium (Duoneb -) 1 amp NEB Q4H PRN Last Admin: 05/30/17 20:11 Dose: 1 amp Azithromycin 500 mg/ Dextrose 250 mls @ 250 mls/hr IVPB DAILY [facility] Last Admin: 05/31/17 09:46 Dose: 250 mls/hr Ceftriaxone Sodium 2 gm/ (Dextrose) 100 mls @ 200 mls/hr IVPB DAILY [facility] Last Admin: 05/31/17 09:46 Dose: 200 mls/hr Vancomycin HCl 1,250 mg/ (Dextrose) 250 mls @ 166.667 mls/hr IVPB Q12H [facility] PRN Reason: Protocol Last Admin: 05/31/17 05:14 Dose: 166.667 mls/hr Ketorolac Tromethamine (Toradol Injection -) 30 mg IVPUSH Q8H PRN PRN Reason: PAIN Stop: 06/03/17 12:27 Last Admin: 05/31/17 13:15 Dose: 30 mg A/P Pneumonia Acute Hypoxic Respiratory Failure - antibiotics per ID - f/u cultures - will obtain CT chest noncontrast - pain control - DVT prophylaxis Problem List - Problems (1) Pneumonia Code(s): J18.9 - PNEUMONIA, UNSPECIFIED ORGANISM Qualifiers: Qualified Code(s): J18.9 - Pneumonia, unspecified organism
--- NOTE | 2017-05-31 13:23 | PN ---
Progress Note, Physician History of Present Illness: Pt afebrile since yesterday a.m. Still has pain in Rt side but only while laying down. Pain disappears when sitting in chair. States he feels better. No specific complaints. - Current Medication List Current Medications: Active Medications Acetaminophen (Tylenol -) 650 mg PO Q6H PRN PRN Reason: FEVER OR PAIN Last Admin: 05/31/17 13:17 Dose: 650 mg Albuterol/Ipratropium (Duoneb -) 1 amp NEB Q4H PRN Last Admin: 05/30/17 20:11 Dose: 1 amp Azithromycin 500 mg/ Dextrose 250 mls @ 250 mls/hr IVPB DAILY [facility] Last Admin: 05/31/17 09:46 Dose: 250 mls/hr Ceftriaxone Sodium 2 gm/ (Dextrose) 100 mls @ 200 mls/hr IVPB DAILY [facility] Last Admin: 05/31/17 09:46 Dose: 200 mls/hr Vancomycin HCl 1,250 mg/ (Dextrose) 250 mls @ 166.667 mls/hr IVPB Q12H [facility] PRN Reason: Protocol Last Admin: 05/31/17 05:14 Dose: 166.667 mls/hr Ketorolac Tromethamine (Toradol Injection -) 30 mg IVPUSH Q8H PRN PRN Reason: PAIN Stop: 06/03/17 12:27 Last Admin: 05/31/17 13:15 Dose: 30 mg - Objective Vital Signs: Vital Signs Temperature 98.7 F 05/31/17 06:00 Pulse Rate 88 05/31/17 06:00 Respiratory Rate 20 05/31/17 06:00 Blood Pressure 133/87 05/31/17 06:00 O2 Sat by Pulse Oximetry (%) 92 L 05/30/17 21:00 Constitutional: Yes: No Distress, Calm Neck: Yes: Supple Cardiovascular: Yes: Regular Rate and Rhythm Respiratory: Yes: Diminished (Rt mid lung section, Rt basilar rales Lt lung clear) Gastrointestinal: Yes: Normal Bowel Sounds, Soft Genitourinary: Yes: WNL Extremities: Yes: WNL Integumentary: Yes: WNL Neurological: Yes: Alert, Oriented Labs: CBC, BMP 05/30/17 09:45 05/29/17 08:25 Problem List - Problems (1) Leukocytosis Code(s): D72.829 - ELEVATED WHITE BLOOD CELL COUNT, UNSPECIFIED (2) Fever Code(s): R50.9 - FEVER, UNSPECIFIED (3) Pneumonia Code(s): J18.9 - PNEUMONIA, UNSPECIFIED ORGANISM Qualifiers: Pneumonia type: due to unspecified organism Laterality: bilateral Lung location: unspecified part of lung Qualified Code(s): J18.9 - Pneumonia, unspecified organism Assessment/Plan b/l CAP s/p Sepsis Persistent Leukocytosis - fevers resolved, clinically appears to be improving - repeat cbc - cont current antibiotics
[2017-05-31 14:53] LABS: BASO % 0.4 % (0-2.0); EOS % 0.4 % (0-4.5); MCH 31.1 pg (25.7-33.7); MCHC 33.4 g/dl (32.0-35.9); MEAN CELL VOLUME 93.3 fl (80-96); MEAN PLT VOLUME 8.7 fl (7.5-11.1); NEUT % 82.5 % (42.8-82.8); PLATELET COUNT 204 K/MM3 (134-434); RDW 12.7 % (11.9-15.9); WHITE BLOOD COUNT 18.9 K/mm3 (4.0-10.0)
--- NOTE | 2017-05-31 16:17 | PN ---
Progress Note, Physician History of Present Illness: feeling better but still sob - Current Medication List Current Medications: Active Medications Acetaminophen (Tylenol -) 650 mg PO Q6H PRN PRN Reason: FEVER OR PAIN Last Admin: 05/31/17 13:17 Dose: 650 mg Albuterol/Ipratropium (Duoneb -) 1 amp NEB Q4H PRN Last Admin: 05/30/17 20:11 Dose: 1 amp Azithromycin 500 mg/ Dextrose 250 mls @ 250 mls/hr IVPB DAILY [facility] Last Admin: 05/31/17 09:46 Dose: 250 mls/hr Ceftriaxone Sodium 2 gm/ (Dextrose) 100 mls @ 200 mls/hr IVPB DAILY [facility] Last Admin: 05/31/17 09:46 Dose: 200 mls/hr Vancomycin HCl 1,250 mg/ (Dextrose) 250 mls @ 166.667 mls/hr IVPB Q12H [facility] PRN Reason: Protocol Last Admin: 05/31/17 05:14 Dose: 166.667 mls/hr Ketorolac Tromethamine (Toradol Injection -) 30 mg IVPUSH Q8H PRN PRN Reason: PAIN Stop: 06/03/17 12:27 Last Admin: 05/31/17 13:15 Dose: 30 mg - Objective Vital Signs: Vital Signs Temperature 99.4 F 05/31/17 15:03 Pulse Rate 112 H 05/31/17 15:03 Respiratory Rate 20 05/31/17 15:03 Blood Pressure 137/72 05/31/17 15:03 O2 Sat by Pulse Oximetry (%) 92 L 05/30/17 21:00 HENT: Yes: Atraumatic Neck: Yes: Supple Cardiovascular: Yes: Regular Rate and Rhythm Respiratory: Yes: Rhonchi Gastrointestinal: Yes: Normal Bowel Sounds Extremities: Yes: WNL Labs: CBC, BMP 05/31/17 14:30 05/29/17 08:25 Problem List - Problems (1) Pneumonia Assessment/Plan: on iv abx flu negative bcx negative chset ct reviewed pulmonaru fu will need thoracentesis Code(s): J18.9 - PNEUMONIA, UNSPECIFIED ORGANISM Qualifiers: Pneumonia type: due to unspecified organism Laterality: bilateral Lung location: unspecified part of lung Qualified Code(s): J18.9 - Pneumonia, unspecified organism
[2017-05-31] MEDS: ALBUTEROL SO4 2.5/IPRATROPIUM 0.5 INH SOL 3 ML VIAL.NEB. NEB PRN (18:50)
[2017-06-01] MEDS ORDERED: PT OWN MED DRAWER 7, Y5N ONE ×2 (04:46→04:50)
[2017-06-01] MEDS: VANCOMYCIN 1,250 MG in DEXTROSE 5%-WATER - 250 ML IVPB SCH ×2 (04:59→16:19)
[2017-06-01] MEDS: KETOROLAC TROMETHAMINE 30 MG/1 ML VIAL IVPUSH PRN ×2 (05:24→16:14)
[2017-06-01] MEDS: CEFTRIAXONE 2 GM in DEXTROSE 5%-WATER - 100 ML IVPB SCH (09:49)
[2017-06-01] MEDS: ACETAMINOPHEN 325 MG TABLET (FP) PO PRN (10:29)
--- NOTE | 2017-06-01 13:11 | PN ---
Progress Note, Physician History of Present Illness: pulmonary dyspneic,+r sided cp. chest ct large bilateral pleural effusions partially loculated - Current Medication List Current Medications: Active Medications Acetaminophen (Tylenol -) 650 mg PO Q6H PRN PRN Reason: FEVER OR PAIN Last Admin: 06/01/17 10:29 Dose: 650 mg Albuterol/Ipratropium (Duoneb -) 1 amp NEB Q4H PRN Last Admin: 05/31/17 18:50 Dose: 1 amp Ceftriaxone Sodium 2 gm/ (Dextrose) 100 mls @ 200 mls/hr IVPB DAILY [facility] Last Admin: 06/01/17 09:49 Dose: 200 mls/hr Vancomycin HCl 1,250 mg/ (Dextrose) 250 mls @ 166.667 mls/hr IVPB Q12H [facility] PRN Reason: Protocol Last Admin: 06/01/17 04:59 Dose: 166.667 mls/hr Ketorolac Tromethamine (Toradol Injection -) 30 mg IVPUSH Q8H PRN PRN Reason: PAIN Stop: 06/03/17 12:27 Last Admin: 06/01/17 05:24 Dose: 30 mg - Objective Vital Signs: Vital Signs Temperature 98.9 F 06/01/17 09:56 Pulse Rate 100 H 06/01/17 09:56 Respiratory Rate 25 H 06/01/17 09:56 Blood Pressure 129/75 06/01/17 09:56 O2 Sat by Pulse Oximetry (%) 93 L 06/01/17 09:00 Constitutional: Yes: Well Nourished, Anxious Eyes: Yes: WNL Cardiovascular: Yes: Regular Rate and Rhythm Respiratory: Yes: Diminished Gastrointestinal: Yes: Normal Bowel Sounds, Soft Extremities: Yes: WNL Edema: No Labs: CBC, BMP 05/31/17 14:30 05/29/17 08:25 - ....Imaging Cat Scan: Report Reviewed, Image Reviewed Assessment/Plan Problem List - Problems (1) Pneumonia Code(s): J18.9 - PNEUMONIA, UNSPECIFIED ORGANISM Qualifiers: Pneumonia type: due to unspecified organism Laterality: bilateral Lung location: unspecified part of lung Qualified Code(s): J18.9 - Pneumonia, unspecified organism Assessment/Plan Community Acquired Pneumonia Flank Pain likely from pleurisy bilateral pleural effusions - ceftriaxone - pain control - incentive spirometry - DVT prophylaxis - thoracentesis with ultrasound guidance - echo DR HANSON
[2017-06-01] MEDS: ALBUTEROL SO4 2.5/IPRATROPIUM 0.5 INH SOL 3 ML VIAL.NEB. NEB PRN (17:00)
[2017-06-01 17:42] LABS: GLUCOSE,PLEURAL FLUID < 1.0; TOTAL PROTEIN,PLEURAL FLUID 5.449
[2017-06-01 17:56] LABS: PLEURAL FLUID APPEARANCE BLOODY; PLEURAL FLUID COLOR RED
[2017-06-01 17:57] LABS: PLEURAL FLUID SOURCE RIGHT PLEURAL
[2017-06-01] MEDS: AZITHROMYCIN IVPB 500 MG in DEXTROSE 5%-WATER - 250 ML IVPB SCH (17:58)
--- NOTE | 2017-06-01 17:58 | PN ---
Progress Note, Physician History of Present Illness: Pt is s/p thoracentesis. States he feels overall better but still with pain in Rt upper back/flank region while lying down. Remains alert and afebrile. Sitting up and eating. - Current Medication List Current Medications: Active Medications Acetaminophen (Tylenol -) 650 mg PO Q6H PRN PRN Reason: FEVER OR PAIN Last Admin: 06/01/17 10:29 Dose: 650 mg Albuterol/Ipratropium (Duoneb -) 1 amp NEB Q4H PRN Last Admin: 06/01/17 17:00 Dose: 1 amp Chlorhexidine Gluconate (Hibiclens For Decolonization -) 1 applic TP HS [facility] Ceftriaxone Sodium 2 gm/ (Dextrose) 100 mls @ 200 mls/hr IVPB DAILY [facility] Last Admin: 06/01/17 09:49 Dose: 200 mls/hr Azithromycin 500 mg/ Dextrose 250 mls @ 250 mls/hr IVPB DAILY [facility] Ketorolac Tromethamine (Toradol Injection -) 30 mg IVPUSH Q8H PRN PRN Reason: PAIN Stop: 06/03/17 12:27 Last Admin: 06/01/17 16:14 Dose: 30 mg Mupirocin (Bactroban Ointment (For Decolonization) -) 1 applic NS BID [facility] Stop: 06/06/17 21:59 - Objective Vital Signs: Vital Signs Temperature 99.2 F 06/01/17 14:44 Pulse Rate 99 H 06/01/17 14:44 Respiratory Rate 26 H 06/01/17 13:20 Blood Pressure 125/76 06/01/17 14:44 O2 Sat by Pulse Oximetry (%) 93 L 06/01/17 09:00 Constitutional: Yes: No Distress, Calm Neck: Yes: Supple Cardiovascular: Yes: Regular Rate and Rhythm Respiratory: Yes: Dullness (Rt lower lung), Rales (bibasilar, R>L) Gastrointestinal: Yes: Normal Bowel Sounds, Soft Extremities: Yes: WNL Edema: No Integumentary: Yes: WNL Labs: CBC, BMP 05/31/17 14:30 05/29/17 08:25 Problem List - Problems (1) Leukocytosis Code(s): D72.829 - ELEVATED WHITE BLOOD CELL COUNT, UNSPECIFIED (2) Fever Code(s): R50.9 - FEVER, UNSPECIFIED (3) Pneumonia Code(s): J18.9 - PNEUMONIA, UNSPECIFIED ORGANISM Qualifiers: Pneumonia type: due to unspecified organism Laterality: bilateral Lung location: unspecified part of lung Qualified Code(s): J18.9 - Pneumonia, unspecified organism (4) Pleural effusion associated with pulmonary infection Code(s): J18.9 - PNEUMONIA, UNSPECIFIED ORGANISM; J91.8 - PLEURAL EFFUSION IN OTHER CONDITIONS CLASSIFIED ELSEWHERE (5) Sepsis Code(s): A41.9 - SEPSIS, UNSPECIFIED ORGANISM Assessment/Plan PNA with B/L pleural effusions with loculation s/p thoracentesis Persistent Leukocytosis - fevers resolved - repeat cbc - cont ceftriaxone, zithromax - f/u pleural fluid cultures - close monitoring
[2017-06-01] MEDS ORDERED: ALBUTEROL SO4 2.5/IPRATROPIUM 0.5 INH SOL 3 ML VIAL.NEB. NEB PRN (18:50)
[2017-06-01] MEDS ORDERED: ACETAMINOPHEN 325 MG TABLET (FP) PO PRN (18:50)
[2017-06-01] MEDS ORDERED: KETOROLAC TROMETHAMINE 30 MG/1 ML VIAL IVPUSH PRN (18:50)
--- NOTE | 2017-06-01 19:55 | PN ---
Progress Note, Physician History of Present Illness: transfered to icu s/p thoracentesis - Current Medication List Current Medications: Active Medications Acetaminophen (Tylenol -) 650 mg PO Q6H PRN PRN Reason: FEVER OR PAIN Albuterol/Ipratropium (Duoneb -) 1 amp NEB Q4H PRN Chlorhexidine Gluconate (Hibiclens For Decolonization -) 1 applic TP HS [facility] Azithromycin 500 mg/ Dextrose 250 mls @ 250 mls/hr IVPB DAILY [facility] Last Admin: 06/01/17 17:58 Dose: 250 mls/hr Ceftriaxone Sodium 2 gm/ (Dextrose) 100 mls @ 200 mls/hr IVPB DAILY [facility] Ketorolac Tromethamine (Toradol Injection -) 30 mg IVPUSH Q8H PRN PRN Reason: PAIN Stop: 06/03/17 12:27 Mupirocin (Bactroban Ointment (For Decolonization) -) 1 applic NS BID [facility] Stop: 06/06/17 21:59 - Objective Vital Signs: Vital Signs Temperature 99.2 F 06/01/17 18:50 Pulse Rate 110 H 06/01/17 18:50 Respiratory Rate 26 H 06/01/17 18:51 Blood Pressure 135/91 06/01/17 18:50 O2 Sat by Pulse Oximetry (%) 93 L 06/01/17 18:51 Constitutional: Yes: No Distress HENT: Yes: Atraumatic Neck: Yes: Supple Cardiovascular: Yes: Regular Rate and Rhythm Respiratory: Yes: Rhonchi Gastrointestinal: Yes: Normal Bowel Sounds Extremities: Yes: WNL Neurological: Yes: Alert, Oriented Labs: CBC, BMP 05/31/17 14:30 05/29/17 08:25 Problem List - Problems (1) Pneumonia Assessment/Plan: on iv abx flu negative bcx negative chest ct reviewed pulmonaru fu s/p thoracentesis Code(s): J18.9 - PNEUMONIA, UNSPECIFIED ORGANISM Qualifiers: Pneumonia type: due to unspecified organism Laterality: bilateral Lung location: unspecified part of lung Qualified Code(s): J18.9 - Pneumonia, unspecified organism (2) Fever Code(s): R50.9 - FEVER, UNSPECIFIED (3) Leukocytosis Code(s): D72.829 - ELEVATED WHITE BLOOD CELL COUNT, UNSPECIFIED (4) Pleural effusion associated with pulmonary infection Code(s): J18.9 - PNEUMONIA, UNSPECIFIED ORGANISM; J91.8 - PLEURAL EFFUSION IN OTHER CONDITIONS CLASSIFIED ELSEWHERE (5) Sepsis Code(s): A41.9 - SEPSIS, UNSPECIFIED ORGANISM
[2017-06-01] MEDS ORDERED: LIDOCAINE HCL 1%, 10 MG/ML (50 mL VIAL) SQ ONE (20:20)
[2017-06-01] MEDS ORDERED: LIDOCAINE HCL 1%, 10 MG/ML (20ML VIAL) ONE (20:24)
--- NOTE | 2017-06-01 20:54 | PN ---
Progress Note (short form) - Note Progress Note: Pulm/CCM Follow Up: -transfer after R sided thora -studies notable for glucose < 1(?), WBC 16K, RBC 9K, Neut Ct Pending, pH 9 (?) , LDH pending, amylase wnl -mild increased SOB, on 50% venti with RR 20s-30, Spo2 94% -L sided thora done in ICU: studies pending + Tobacco- 30 pack years. Active Medications Acetaminophen (Tylenol -) 650 mg PO Q6H PRN PRN Reason: FEVER OR PAIN Albuterol/Ipratropium (Duoneb -) 1 amp NEB Q4H PRN Chlorhexidine Gluconate (Hibiclens For Decolonization -) 1 applic TP HS [facility] Azithromycin 500 mg/ Dextrose 250 mls @ 250 mls/hr IVPB DAILY [facility] Last Admin: 06/01/17 17:58 Dose: 250 mls/hr Ceftriaxone Sodium 2 gm/ (Dextrose) 100 mls @ 200 mls/hr IVPB DAILY [facility] Ketorolac Tromethamine (Toradol Injection -) 30 mg IVPUSH Q8H PRN PRN Reason: PAIN Stop: 06/03/17 12:27 Mupirocin (Bactroban Ointment (For Decolonization) -) 1 applic NS BID [facility] Stop: 06/06/17 21:59 Vital Signs Temp 99.2 F 06/01/17 18:50 Pulse 110 H 06/01/17 18:50 Resp 26 H 06/01/17 18:51 BP 135/91 06/01/17 18:50 Pulse Ox 93 L 06/01/17 18:51 Intake & Output 05/31/17 06/01/17 06/01/17 23:59 11:59 23:59 Intake Total 44075 650 670 Balance 44943 650 670 Intake: IVPB 22660 350 250 Oral 1080 300 420 Other: Voiding Method Toilet Toilet Toilet # Unmeasured Voids Void 3 1 2 Bowel Movement Yes Yes # Bowel Movements 1 1 CBCD WBC 18.9 K/mm3 (4.0-10.0) H 05/31/17 14:30 RBC 4.75 M/mm3 (4.00-5.60) 05/31/17 14:30 Hgb 14.8 GM/dL (11.7-16.9) 05/31/17 14:30 Hct 44.3 % (35.4-49) 05/31/17 14:30 MCV 93.3 fl (80-96) 05/31/17 14:30 MCHC 33.4 g/dl (32.0-35.9) 05/31/17 14:30 RDW 12.7 % (11.9-15.9) 05/31/17 14:30 Plt Count 204 K/MM3 (134-434) D 05/31/17 14:30 MPV 8.7 fl (7.5-11.1) 05/31/17 14:30 CMP Sodium 137 mmol/L (136-145) 05/29/17 08:25 Potassium 3.9 mmol/L (3.5-5.1) 05/29/17 08:25 Chloride 101 mmol/L (98-107) 05/29/17 08:25 Carbon Dioxide 28 mmol/L (21-32) 05/29/17 08:25 Anion Gap 8 (8-16) 05/29/17 08:25 BUN 15 mg/dL (7-18) D 05/29/17 08:25 Creatinine 1.1 mg/dL (0.7-1.3) D 05/29/17 08:25 Creat Clearance w eGFR > 60 (>60) 05/29/17 08:25 Calcium 8.6 mg/dL (8.5-10.1) 05/29/17 08:25 Total Bilirubin 0.9 mg/dL (0.2-1.0) D 05/29/17 08:25 AST 10 U/L (15-37) L D 05/29/17 08:25 ALT 21 U/L (12-78) D 05/29/17 08:25 Alkaline Phosphatase 78 U/L (45-117) D 05/29/17 08:25 Total Protein 6.3 g/dl (6.4-8.2) L 05/29/17 08:25 Albumin 2.8 g/dl (3.4-5.0) L D 05/29/17 08:25 CT reviewed Cxr reviewed: bilateral pleural effusions, R > L, with loculations and consolidation in LL PE: HEENT: PERRL, No JVP, sclera anicteric PULM: diminished bases bilaterally, intermittent dry cough, no wheezes CV; trachy, regular, no m/r/g appreciated ABD:obsese, soft, NT, ND EXT: no edema, 2+ pulses throughout Neuro:awake, alert oriented A/ 37 y./o man without significant PMH presented with 1 day of flank pain, found to have bilteral pleural effusion and multilobar pna, labs appear c/w parapneumonic on R, L pending. No clear risk factor for bilateral p/n effusions (denies heavy etoh/IVDU, no exotic travel P/ -f/u remaining R sided and L side thora results,if appears empyema---thoracic for CT, if deteriorates would proceed with R sided CT first -case discussed with thoracic, want pt for VATS on Sunday, feels will need decort and tissue for path. -abx; ceftriaxone and azith - Fio2 as needed -pain control -monitor in ICU Stan Escalante ACNP [id number].
--- NOTE | 2017-06-01 21:09 | PROC ---
Procedure Note Procedure: Thoracentesis: Consent obtained and placed in chart Local anesthesia with 5cc of 1% lidocaine Using US guidance and landmarks a 20 ga needle was introduced into posterior L 5 -6 intercostal space 15cc of sero-sang fluid was withdrawn and sent to lab dressing applied CXR ordered Pt tolerated well. Stan Escalante ACNP [id number]
[2017-06-01 21:32] LABS: PLEURAL FLUID NEUTROPHIL 99 %
[2017-06-01 22:24] LABS: GLUCOSE,PLEURAL FLUID 142.571; TOTAL PROTEIN,PLEURAL FLUID 4.966
[2017-06-01] MEDS: CHLORHEXIDINE GLUCONATE 4% CLEANSER FOR DECOLONIZATION TP SCH (22:33)
[2017-06-01] MEDS: MUPIROCIN 2% TOPICAL OINTMENT FOR DECOLONIZATION NS SCH (22:33)
[2017-06-01 22:37] LABS: PLEURAL FLUID APPEARANCE BLOODY; PLEURAL FLUID COLOR RED; PLEURAL FLUID SOURCE PLEURAL
[2017-06-02 00:56] LABS: PLEURAL FLUID LYMPHOCYTES 21 %; PLEURAL FLUID MACROPHAGES 13 %; PLEURAL FLUID NEUTROPHIL 60 %
[2017-06-02 06:19] LABS: BASO % 0.3 % (0-2.0); EOS % 0.4 % (0-4.5); MCH 31.2 pg (25.7-33.7); MCHC 33.6 g/dl (32.0-35.9); MEAN CELL VOLUME 92.8 fl (80-96); MEAN PLT VOLUME 8.9 fl (7.5-11.1); NEUT % 83.1 % (42.8-82.8); PLATELET COUNT 253 K/MM3 (134-434); WHITE BLOOD COUNT 19.1 K/mm3 (4.0-10.0)
[2017-06-02] MEDS: CEFTRIAXONE 2 GM in DEXTROSE 5%-WATER - 100 ML IVPB SCH (09:52)
--- NOTE | 2017-06-02 10:13 | PN ---
Progress Note (short form) - Note Progress Note: Pulm/CCM Follow Up: 24HR: -somewhat improved -L side uncomplicated bloody parapneumonic -thoracic to consider VATs Active Medications Acetaminophen (Tylenol -) 650 mg PO Q6H PRN PRN Reason: FEVER OR PAIN Albuterol/Ipratropium (Duoneb -) 1 amp NEB Q4H PRN Chlorhexidine Gluconate (Hibiclens For Decolonization -) 1 applic TP HS [facility] Azithromycin 500 mg/ Dextrose 250 mls @ 250 mls/hr IVPB DAILY [facility] Last Admin: 06/01/17 17:58 Dose: 250 mls/hr Ceftriaxone Sodium 2 gm/ (Dextrose) 100 mls @ 200 mls/hr IVPB DAILY [facility] Ketorolac Tromethamine (Toradol Injection -) 30 mg IVPUSH Q8H PRN PRN Reason: PAIN Stop: 06/03/17 12:27 Mupirocin (Bactroban Ointment (For Decolonization) -) 1 applic NS BID [facility] Stop: 06/06/17 21:59 Vital Signs Temp 99.4 F 06/02/17 06:00 Pulse 107 H 06/02/17 10:11 Resp 26 H 06/02/17 08:00 BP 123/88 06/02/17 08:00 Pulse Ox 94 L 06/02/17 10:11 Intake & Output 06/01/17 06/01/17 06/02/17 11:59 23:59 11:59 Intake Total 650 770 350 Balance 650 770 350 Intake: IVPB 350 250 250 Oral 300 520 100 Other: Voiding Method Toilet Toilet # Unmeasured Voids Void 1 1 2 Bowel Movement Yes Yes # Bowel Movements 1 1 CBCD WBC 19.1 K/mm3 (4.0-10.0) H 06/02/17 05:50 RBC 4.83 M/mm3 (4.00-5.60) 06/02/17 05:50 Hgb 15.0 GM/dL (11.7-16.9) 06/02/17 05:50 Hct 44.8 % (35.4-49) 06/02/17 05:50 MCV 92.8 fl (80-96) 06/02/17 05:50 MCHC 33.6 g/dl (32.0-35.9) 06/02/17 05:50 RDW 13.0 % (11.9-15.9) 06/02/17 05:50 Plt Count 253 K/MM3 (134-434) D 06/02/17 05:50 MPV 8.9 fl (7.5-11.1) 06/02/17 05:50 CMP Sodium 137 mmol/L (136-145) 05/29/17 08:25 Potassium 3.9 mmol/L (3.5-5.1) 05/29/17 08:25 Chloride 101 mmol/L (98-107) 05/29/17 08:25 Carbon Dioxide 28 mmol/L (21-32) 05/29/17 08:25 Anion Gap 8 (8-16) 05/29/17 08:25 BUN 15 mg/dL (7-18) D 05/29/17 08:25 Creatinine 1.1 mg/dL (0.7-1.3) D 05/29/17 08:25 Creat Clearance w eGFR > 60 (>60) 05/29/17 08:25 Calcium 8.6 mg/dL (8.5-10.1) 05/29/17 08:25 Total Bilirubin 0.9 mg/dL (0.2-1.0) D 05/29/17 08:25 AST 10 U/L (15-37) L D 05/29/17 08:25 ALT 21 U/L (12-78) D 05/29/17 08:25 Alkaline Phosphatase 78 U/L (45-117) D 05/29/17 08:25 Total Protein 6.3 g/dl (6.4-8.2) L 05/29/17 08:25 Albumin 2.8 g/dl (3.4-5.0) L D 05/29/17 08:25 CT reviewed Cxr reviewed: bilateral pleural effusions, R > L, with loculations and consolidation in LL PE: HEENT: PERRL, No JVP, sclera anicteric PULM: diminished bases bilaterally, intermittent dry cough, no wheezes CV; trachy, regular, no m/r/g appreciated ABD:obsese, soft, NT, ND EXT: no edema, 2+ pulses throughout Neuro:awake, alert oriented A/ 37 y./o man without significant PMH presented with 1 day of flank pain, found to have bilteral pleural effusion and multilobar pna, labs appear c/w parapneumonic on R, L pending. No clear risk factor for bilateral p/n effusions (denies heavy etoh/IVDU, no exotic travel P/ -R appears complicated parapneumonic, L bloody uncomplicated (glu elevated) -case discussed with thoracic, want pt for VATS on Sunday, feels will need decort and tissue for path. will place CT if decomps over weekend -abx; cont ceftriaxone and azith---> if decomp would start broader coverage--> PT - Fio2 as needed -pain control--> fent PRN, + tylenol -monitor in ICU Stan Escalante ACNP [id number].
[2017-06-02] MEDS ORDERED: LIDOCAINE HCL 1%, 10 MG/ML (20ML VIAL) ONE (14:30)
--- NOTE | 2017-06-02 14:45 | CONSULT ---
Consult - text type - Consultation Consultation Note: Thoracic Surgery Consult: Reason for consultation: B/L effusions R>L 37M previously healthy male active smoker p/w right flank pain and hypoxia. CT a /p shows b/l LL pulmonary processes. 3 days later with loculated right effusion and left effusion. Tap yesterday shows exudative effusion. pH high (likely error). More wbc's than PMN's but story and acute onset not c/w TB. Consented for U/S guided of tube with Stan Escalante. Will f/u studies. Likely will need VATS on Sunday if doesn't improve. Diff Dx: bacterial vs. viral vs. malignancy vs. fungal. I have spent >40 minutes on this consultation incuding h/p, discussion with SHONDA Escalante, and >50% on counseling and coordination of care.
--- NOTE | 2017-06-02 14:49 | OP ---
Operative Note - Note: Operative Date: 06/02/17 Pre-Operative Diagnosis: Right effusion Operation: U/S guided placement of chest tube (pigtail catheter) Findings: Small space above diaphragm with fluid. Post-Operative Diagnosis: Same as Pre-op Anesthesia: Local Estimated Blood Loss (mls): 0 Operative Report Dictated: No
[2017-06-02] MEDS: AZITHROMYCIN IVPB 500 MG in DEXTROSE 5%-WATER - 250 ML IVPB SCH (17:51)
[2017-06-02] MEDS: MUPIROCIN 2% TOPICAL OINTMENT FOR DECOLONIZATION NS SCH ×2 (17:51→21:44)
--- NOTE | 2017-06-02 18:11 | PN ---
Progress Note, Physician History of Present Illness: R side pig tail chest tube - Current Medication List Current Medications: Active Medications Acetaminophen (Tylenol -) 650 mg PO Q6H PRN PRN Reason: FEVER OR PAIN Albuterol/Ipratropium (Duoneb -) 1 amp NEB Q4H PRN Chlorhexidine Gluconate (Hibiclens For Decolonization -) 1 applic TP HS [facility] Last Admin: 06/01/17 22:33 Dose: 1 applic Fentanyl (Sublimaze Injection -) 25 mcg IVPUSH Q1H PRN PRN Reason: PAIN LEVEL 1-5 Stop: 06/03/17 07:29 Last Admin: 06/02/17 14:20 Dose: 25 mcg Azithromycin 500 mg/ Dextrose 250 mls @ 250 mls/hr IVPB DAILY [facility] Last Admin: 06/02/17 17:51 Dose: 250 mls/hr Ceftriaxone Sodium 2 gm/ (Dextrose) 100 mls @ 200 mls/hr IVPB DAILY [facility] Last Admin: 06/02/17 09:52 Dose: 200 mls/hr Ketorolac Tromethamine (Toradol Injection -) 30 mg IVPUSH Q8H PRN PRN Reason: PAIN Stop: 06/03/17 12:27 Last Admin: 06/02/17 15:13 Dose: 30 mg Mupirocin (Bactroban Ointment (For Decolonization) -) 1 applic NS BID [facility] Stop: 06/06/17 21:59 Last Admin: 06/02/17 17:51 Dose: 1 applic - Objective Vital Signs: Vital Signs Temperature 99.1 F 06/02/17 14:00 Pulse Rate 102 H 06/02/17 16:00 Respiratory Rate 28 H 06/02/17 16:00 Blood Pressure 145/78 06/02/17 16:00 O2 Sat by Pulse Oximetry (%) 100 06/02/17 16:00 HENT: Yes: Atraumatic Neck: Yes: Supple Cardiovascular: Yes: Regular Rate and Rhythm Respiratory: Yes: Rhonchi Gastrointestinal: Yes: Normal Bowel Sounds Extremities: Yes: WNL Peripheral Pulses WNL: Yes Neurological: Yes: Alert, Oriented Labs: CBC, BMP 06/02/17 05:50 05/29/17 08:25 Problem List - Problems (1) Pneumonia Assessment/Plan: on iv abx now has chest tube Code(s): J18.9 - PNEUMONIA, UNSPECIFIED ORGANISM Qualifiers: Pneumonia type: due to unspecified organism Laterality: bilateral Lung location: unspecified part of lung Qualified Code(s): J18.9 - Pneumonia, unspecified organism (2) Fever Assessment/Plan: afebrile Code(s): R50.9 - FEVER, UNSPECIFIED (3) Leukocytosis Assessment/Plan: wbc still elevated Code(s): D72.829 - ELEVATED WHITE BLOOD CELL COUNT, UNSPECIFIED (4) Pleural effusion associated with pulmonary infection Code(s): J18.9 - PNEUMONIA, UNSPECIFIED ORGANISM; J91.8 - PLEURAL EFFUSION IN OTHER CONDITIONS CLASSIFIED ELSEWHERE (5) Sepsis Code(s): A41.9 - SEPSIS, UNSPECIFIED ORGANISM
[2017-06-02 19:55] LABS: HIV 1 & 2 AB NEGATIVE; HIV 1 AGp24 NEGATIVE
[2017-06-02] MEDS: CHLORHEXIDINE GLUCONATE 4% CLEANSER FOR DECOLONIZATION TP SCH (21:44)
[2017-06-03 05:47] LABS: MCH 31.4 pg (25.7-33.7); MCHC 33.8 g/dl (32.0-35.9); MEAN PLT VOLUME 8.5 fl (7.5-11.1); PLATELET COUNT 225 K/MM3 (134-434); RDW 12.9 % (11.9-15.9)
[2017-06-03 06:13] LABS: ALBUMIN 2.2 g/dl (3.4-5.0); ANION GAP 5 (8-16); BILIRUBIN,TOTAL 0.4 mg/dL (0.2-1.0); CALCIUM 7.8 mg/dL (8.5-10.1); CO2 31 mmol/L (21-32); CREATININE 0.9 mg/dL (0.7-1.3); GLUCOSE,RANDOM 112 mg/dL (74-106); MAGNESIUM 2.5 mg/dL (1.8-2.4); PHOSPHOROUS 4.3 mg/dL (2.5-4.9); SGOT/AST 39 U/L (15-37); SGPT/ALT 23 U/L (12-78)
[2017-06-03 06:14] LABS: ALK PHOS 76 U/L (45-117)
--- NOTE | 2017-06-03 08:37 | PN ---
Progress Note (short form) - Note Progress Note: PULM/CCM Pt seen & examined in the ICU on [facility], resting comfortabel watching soccer on TV. Pt endorses feeling much better. L thora on 06/01 c/w exudative effusion, now s/p R pig tail CT (06/02) --> LWS draining scanty serosang fluid. R appears complicated parapneumonic. Active Medications Acetaminophen (Tylenol -) 650 mg PO Q6H PRN PRN Reason: FEVER OR PAIN Albuterol/Ipratropium (Duoneb -) 1 amp NEB Q4H PRN Chlorhexidine Gluconate (Hibiclens For Decolonization -) 1 applic TP HS [facility] Last Admin: 06/02/17 21:44 Dose: 1 applic Azithromycin 500 mg/ Dextrose 250 mls @ 250 mls/hr IVPB DAILY [facility] Last Admin: 06/03/17 11:45 Dose: 250 mls/hr Ceftriaxone Sodium 2 gm/ (Dextrose) 100 mls @ 200 mls/hr IVPB DAILY [facility] Last Admin: 06/03/17 11:25 Dose: 200 mls/hr Ketorolac Tromethamine (Toradol Injection -) 30 mg IVPUSH Q8H PRN PRN Reason: PAIN Stop: 06/03/17 12:27 Last Admin: 06/02/17 15:13 Dose: 30 mg Mupirocin (Bactroban Ointment (For Decolonization) -) 1 applic NS BID [facility] Stop: 06/06/17 21:59 Last Admin: 06/03/17 11:52 Dose: 1 applic V/S Period Temp Pulse Resp BP Sys/Novak Pulse Ox Last 24 Hr 98.3 F-99.1 F 94-115 22-36 109-148/44-115 93-100 Intake & Output 05/31/17 06/01/17 06/02/17 06/03/17 23:59 23:59 23:59 23:59 Intake Total 38699 1420 1400 100 Output Total 800 575 Balance 75848 1420 600 -475 CBC, BMP 06/03/17 05:35 06/03/17 05:35 MICRO 05/28/17 16:40 Blood - Peripheral Venous Blood Culture - Final NO GROWTH AFTER 5 DAYS INCUBATION 05/28/17 16:40 Blood - Peripheral Venous Blood Culture - Final NO GROWTH AFTER 5 DAYS INCUBATION 06/01/17 14:50 Pleural Fluid Gram Stain - Final 06/01/17 14:50 Pleural Fluid Body Fluid Culture - Preliminary NO AEROBIC GROWTH, 24 HRS 06/01/17 14:50 Pleural Fluid SULLY Preparation - Preliminary 06/01/17 14:50 Pleural Fluid Fungal Culture - Preliminary 05/28/17 15:41 Urine - Urine Clean Catch Urine Culture - Final NO GROWTH OBTAINED 05/29/17 18:00 Urine For Antigen Detection Legionella Antigen - Final 05/29/17 18:00 Urine For Antigen Detection Streptococcus pneumoniae Antigen (M - Final 05/28/17 19:40 Nasopharyngeal Swab Influenza Types A,B Antigen (JAHAIRA) - Final 05/28/17 19:40 Nasopharyngeal Swab - Final IMAGING 2 NOTE: CXR 06/02: B/L effusions R>L (My Read). CXR 06/03: PENDING ASESS: This is a 37 y/o man w/o sig PMH who presented w/ multilobar pna & bilateral pleural effusions: thora is c/w exudative effusion. DDX: bacterial vs. viral vs. malignancy vs. fungal?? (HIV is neg). PLAN: -Supp FiO2 for an SpO2 > 92% -Nebs prn -pain control w/ Tylenol (mild), toradol (Mod) -Can have Dilaudid for breakthrough pain -f/u remaining R sided and L side thora results -Cont ceftriaxone and azith -BR -VATS tomorrow. -SQH -PPI DGL, ACNP-BC [facility] ICU PULM/CCM [id number]
[2017-06-03] MEDS ORDERED: PT OWN MED DRAWER 7, Y5N ONE (11:22)
[2017-06-03] MEDS: CEFTRIAXONE 2 GM in DEXTROSE 5%-WATER - 100 ML IVPB SCH (11:25)
[2017-06-03] MEDS: AZITHROMYCIN IVPB 500 MG in DEXTROSE 5%-WATER - 250 ML IVPB SCH (11:45)
[2017-06-03] MEDS: MUPIROCIN 2% TOPICAL OINTMENT FOR DECOLONIZATION NS SCH ×2 (11:52→23:00)
--- NOTE | 2017-06-03 13:03 | PN ---
Progress Note (short form) - Note Progress Note: Thoracic Surgery: Clinically improving (decreased oxygen requirements, decreased wbc). Unclear what the cause of his respiratory failure is. No growth of anything, not typical candidate for such an aggressive pneumonitis if this is bacterial. Please do CT scan. NPO post midnight. Depending on results of CT and clinical improvement may not need VATS tomorrow.
--- NOTE | 2017-06-03 17:36 | PN ---
Progress Note, Physician - Current Medication List Current Medications: Active Medications Acetaminophen (Tylenol -) 650 mg PO Q6H PRN PRN Reason: FEVER OR PAIN Albuterol/Ipratropium (Duoneb -) 1 amp NEB Q4H PRN Chlorhexidine Gluconate (Hibiclens For Decolonization -) 1 applic TP HS [facility] Last Admin: 06/02/17 21:44 Dose: 1 applic Azithromycin 500 mg/ Dextrose 250 mls @ 250 mls/hr IVPB DAILY [facility] Last Admin: 06/03/17 11:45 Dose: 250 mls/hr Ceftriaxone Sodium 2 gm/ (Dextrose) 100 mls @ 200 mls/hr IVPB DAILY [facility] Last Admin: 06/03/17 11:25 Dose: 200 mls/hr Mupirocin (Bactroban Ointment (For Decolonization) -) 1 applic NS BID [facility] Stop: 06/06/17 21:59 Last Admin: 06/03/17 11:52 Dose: 1 applic - Objective Vital Signs: Vital Signs Temperature 99.2 F 06/03/17 14:00 Pulse Rate 102 H 06/03/17 14:00 Respiratory Rate 24 06/03/17 14:00 Blood Pressure 122/74 06/03/17 14:00 O2 Sat by Pulse Oximetry (%) 93 L 06/03/17 11:11 Constitutional: Yes: No Distress HENT: Yes: Atraumatic Neck: Yes: Supple Cardiovascular: Yes: Regular Rate and Rhythm Respiratory: Yes: CTA Bilaterally Gastrointestinal: Yes: Normal Bowel Sounds Extremities: Yes: WNL Neurological: Yes: Alert, Oriented Labs: CBC, BMP 06/03/17 05:35 06/03/17 05:35 Problem List - Problems (1) Pneumonia Assessment/Plan: on iv abx now has chest tube for vats in am depending upon ctscan Code(s): J18.9 - PNEUMONIA, UNSPECIFIED ORGANISM Qualifiers: Pneumonia type: due to unspecified organism Laterality: bilateral Lung location: unspecified part of lung Qualified Code(s): J18.9 - Pneumonia, unspecified organism (2) Fever Assessment/Plan: afebrile Code(s): R50.9 - FEVER, UNSPECIFIED (3) Leukocytosis Code(s): D72.829 - ELEVATED WHITE BLOOD CELL COUNT, UNSPECIFIED (4) Pleural effusion associated with pulmonary infection Code(s): J18.9 - PNEUMONIA, UNSPECIFIED ORGANISM; J91.8 - PLEURAL EFFUSION IN OTHER CONDITIONS CLASSIFIED ELSEWHERE (5) Sepsis Code(s): A41.9 - SEPSIS, UNSPECIFIED ORGANISM
[2017-06-03] MEDS: CHLORHEXIDINE GLUCONATE 4% CLEANSER FOR DECOLONIZATION TP SCH (23:00)
[2017-06-04 05:56] LABS: BASO % 0.7 % (0-2.0); EOS % 1.3 % (0-4.5); MCH 31.5 pg (25.7-33.7); MCHC 33.6 g/dl (32.0-35.9); MEAN CELL VOLUME 93.6 fl (80-96); MEAN PLT VOLUME 8.5 fl (7.5-11.1); NEUT % 74.9 % (42.8-82.8); PLATELET COUNT 233 K/MM3 (134-434); RDW 12.9 % (11.9-15.9); WHITE BLOOD COUNT 12.5 K/mm3 (4.0-10.0)
[2017-06-04 06:01] LABS: INR 1.16 (0.82-1.09); PROTHROMBIN TIME (PATIENT) 13.1 SEC (9.98-11.88)
[2017-06-04 06:13] LABS: ALBUMIN 2.1 g/dl (3.4-5.0); ANION GAP 4 (8-16); BILIRUBIN,TOTAL 0.4 mg/dL (0.2-1.0); CALCIUM 7.8 mg/dL (8.5-10.1); CO2 34 mmol/L (21-32); GLUCOSE,RANDOM 100 mg/dL (74-106); SGOT/AST 29 U/L (15-37); SGPT/ALT 20 U/L (12-78)
[2017-06-04 06:14] LABS: ALK PHOS 72 U/L (45-117); TOT PROT 5.8 g/dl (6.4-8.2)
[2017-06-04] MEDS ORDERED: PT OWN MED DRAWER 7, Y5N ONE (09:09)
[2017-06-04] MEDS: CEFTRIAXONE 2 GM in DEXTROSE 5%-WATER - 100 ML IVPB SCH (09:12)
[2017-06-04] MEDS: AZITHROMYCIN IVPB 500 MG in DEXTROSE 5%-WATER - 250 ML IVPB SCH (09:37)
[2017-06-04] MEDS: MUPIROCIN 2% TOPICAL OINTMENT FOR DECOLONIZATION NS SCH ×2 (11:01→21:05)
[2017-06-04] MEDS ORDERED: LIDOCAINE HCL 1%, 10 MG/ML (20ML VIAL) ONE (11:29)
--- NOTE | 2017-06-04 12:44 | PN ---
Teaching Attending Note Name of Resident: Heather Lutz ATTENDING PHYSICIAN STATEMENT I saw and evaluated the patient. I reviewed the resident's note and discussed the case with the resident. I agree with the resident's findings and plan as documented. SUBJECTIVE: Pt seen and examined in the ICU. States breathing is improving. No fevers recorded. Saturating mid 90s on 50% ventimask. OBJECTIVE: Last Vital Signs Temp Pulse Resp BP Pulse Ox 98.4 F 96 H 30 H 141/84 97 06/04/17 12:00 06/04/17 12:00 06/04/17 12:00 06/04/17 12:00 06/04/17 12:06 Intake & Output 06/01/17 06/02/17 06/03/17 06/04/17 23:59 23:59 23:59 23:59 Intake Total 1420 1400 200 Output Total 800 715 130 Balance 1420 600 -515 -130 Gen: mildly tachypneic at rest Heart: RRR Lung: decreased breath sounds at the bases, scattered rhonchi Abd: soft, nontender Ext: no edema Chest tube: slightly cloudy serous drainage CBC, BMP 06/04/17 05:15 06/04/17 05:15 Active Medications Acetaminophen (Tylenol -) 650 mg PO Q6H PRN PRN Reason: FEVER OR PAIN Albuterol/Ipratropium (Duoneb -) 1 amp NEB Q4H PRN Chlorhexidine Gluconate (Hibiclens For Decolonization -) 1 applic TP HS [facility] Last Admin: 06/03/17 23:00 Dose: 1 applic Azithromycin 500 mg/ Dextrose 250 mls @ 250 mls/hr IVPB DAILY [facility] Last Admin: 06/04/17 09:37 Dose: 250 mls/hr Ceftriaxone Sodium 2 gm/ (Dextrose) 100 mls @ 200 mls/hr IVPB DAILY [facility] Last Admin: 06/04/17 09:12 Dose: 200 mls/hr Mupirocin (Bactroban Ointment (For Decolonization) -) 1 applic NS BID [facility] Stop: 06/06/17 21:59 Last Admin: 06/04/17 11:01 Dose: 1 applic ASSESSMENT AND PLAN: Acute Hypoxic Respiratory Failure Pneumonia r/o Empyema - continue antibiotics - continue right pigtail to low wall suction - will place left sided pigtail catheter - daily CXR - if not clinically improving, will need R VATS - O2 to keep SpO2 >90% - pain control - DVT prophylaxis Problem List - Problems (1) Pneumonia Code(s): J18.9 - PNEUMONIA, UNSPECIFIED ORGANISM Qualifiers: Pneumonia type: due to unspecified organism Laterality: bilateral Lung location: unspecified part of lung Qualified Code(s): J18.9 - Pneumonia, unspecified organism
--- NOTE | 2017-06-04 12:47 | EKG ---
Test Reason : Blood Pressure : / mmHG Vent. Rate : 087 BPM Atrial Rate : 087 BPM P-R Int : 130 ms QRS Dur : 100 ms QT Int : 366 ms P-R-T Axes : 017 040 013 degrees QTc Int : 440 ms NORMAL SINUS RHYTHM NORMAL ECG WHEN COMPARED WITH ECG OF 28-MAY-2017 16:59, NO SIGNIFICANT CHANGE WAS FOUND Confirmed by NOLBERTO ROGERS MD ([id number]) on 06/04/2017 12:47:17 PM Referred By: Confirmed By:NOLBERTO ROGERS MD
--- NOTE | 2017-06-04 13:03 | PN ---
Physical Exam: SUBJECTIVE: Patient seen and examined at bedside. 24 hr events -afebrile -low temp 99.8F -s/p R chest tube placed on Sunday Today -pt states that he is feeling much better -improved breathing, decreased sputum production -denies WHITE, fever, chills, chest pain -since pt clinically improving, for chest tube, no VATS -s/p L pigtail chest tube -placed this afternoon OBJECTIVE: Vital Signs Period Temp Pulse Resp BP Sys/Novak Pulse Ox Last 24 Hr 98.4 F-99.8 F 78-102 15-30 122-161/55-95 96-97 GENERAL: The patient is awake, alert, in no acute distress. Sitting up in bed, without 02 use HEAD: Normal with no signs of trauma. EYES: PERRL, extraocular movements intact, sclera anicteric, conjunctiva clear. NECK: Trachea midline, supple. LUNGS: crackles appreciated b/l, did not appreciate wheezes or rhonchi, or accessory m usage HEART: Regular rate and rhythm, S1, S2 without murmur, rub or gallop. ABDOMEN: Soft, obese, nontender, nondistended, normoactive bowel sounds EXTREMITIES: 2+ dorsalis pedis pulses, warm, well-perfused, no edema. NEUROLOGICAL: Cranial nerves II through XII grossly intact. Laboratory Results - last 24 hr 06/04/17 06/04/17 06/04/17 05:15 05:15 05:15 WBC 12.5 H RBC 4.33 Hgb 13.6 Hct 40.5 MCV 93.6 MCH 31.5 MCHC 33.6 RDW 12.9 Plt Count 233 MPV 8.5 Neutrophils % 74.9 Lymphocytes % 13.9 D Monocytes % 9.2 Eosinophils % 1.3 D Basophils % 0.7 PT with INR 13.10 H INR 1.16 H Sodium Potassium Chloride Carbon Dioxide Anion Gap BUN Creatinine Creat Clearance w eGFR Random Glucose Hemoglobin A1c % 5.3 Calcium Total Bilirubin AST ALT Alkaline Phosphatase Total Protein Albumin Blood Type Antibody Screen 06/04/17 06/04/17 05:15 05:15 WBC RBC Hgb Hct MCV MCH MCHC RDW Plt Count MPV Neutrophils % Lymphocytes % Monocytes % Eosinophils % Basophils % PT with INR INR Sodium 133 L Potassium 4.6 Chloride 95 L Carbon Dioxide 34 H Anion Gap 4 L BUN 16 Creatinine 1.0 Creat Clearance w eGFR > 60 Random Glucose 100 Hemoglobin A1c % Calcium 7.8 L Total Bilirubin 0.4 AST 29 D ALT 20 Alkaline Phosphatase 72 Total Protein 5.8 L Albumin 2.1 L Blood Type A POSITIVE Antibody Screen Negative Active Medications Generic Name Dose Route Start Last Admin Trade Name Freq PRN Reason Stop Dose Admin Acetaminophen 650 mg 06/01/17 18:50 Tylenol - PO Q6H PRN FEVER OR PAIN Albuterol/Ipratropium 1 amp 06/01/17 18:50 Duoneb - NEB Q4H PRN Chlorhexidine Gluconate 1 applic 06/01/17 22:00 06/03/17 23:00 Hibiclens For Decolonization - TP 1 applic HS ROX[facility] Administration Azithromycin 500 mg/ Dextrose 250 mls @ 250 mls/hr 06/01/17 18:00 06/04/17 09 :37 IVPB 250 mls/hr DAILY [facility] Administration Ceftriaxone Sodium 2 gm/ 100 mls @ 200 mls/hr 06/02/17 10:00 06/04/17 09:12 Dextrose IVPB 200 mls/hr DAILY [facility] Administration Mupirocin 1 applic 06/01/17 22:00 06/04/17 11:01 Bactroban Ointment (For Decolonization) - NS 06/06/17 21:59 1 applic BID [facility] Administration ASSESSMENT/PLAN: 37 y/o M PMH 1ppd smoker (30 pack years), who initially came to the ED for R flank pain x 2 days, which was worse on deep inspiration and a/w fever and chills. Pt later found to have loculated R pleural effusion and L pleural effusion, which he is being managed for in ICU. #PULMONARY -Possible viral etiology, quick clinical resolution, despite pt's non-toxic appearance -Pt clinically improving- no current need for VATS -counseled on smoking cessation, expressed verbal understanding -s/p L pigtail chest tube placement today- clamped, unclamp tomorrow AM F/u CXR noon -s/p R chest tube (placed Sunday)- low wall suction -F/u chest tube output -F/u pleural fluid analysis- LDH, glucose, pH, triglycerides, cholesterol, total protein, amylase, cell count -Will help determine whether exudative vs. transudative using Light's criteria -F/u pleural fluid cytology report -if does not improve, may need R VATS -Continue ceftriaxone and azithromycin -Nebs 1 amp q4h PRN -Tylenol 650 mg PO q6h PRN for pain -Prelim AFB (-) -SULLY: (-) #DVT Prophylaxis SCD's #F/E/N Currently not on IVF Clear liquid diet Will continue to follow electrolytes #Dispo Continued ICU management Visit type - Emergency Visit Emergency Visit: No - New Patient This patient is new to me today: No - Critical Care Critical Care patient: Yes Total Critical Care Time (in minutes): 42 Critical Care Statement: The care of this patient involved high complexity decision making to prevent further life threatening deterioration of the patient 's condition and/or to evaluate & treat vital organ system(s) failure or risk of failure.
--- NOTE | 2017-06-04 15:02 | PROC ---
<Ted Carrasquillo - Last Filed: 06/04/17 15:00> Chest Tube Insertion Consent on Chart: Yes Risks and Benefits Explained: Yes Chest tube #1 Indication: Pleural Effusion Chest Tube Location: Left Lateral Anesthesia: 1% Lidocaine Size (Fr.): 14 Sterile Technique: Yes Tube Sutured to Skin: No Vaseline gauze dressing: No Chest Tube Collection System: Pleur-Evac Suction: Yes Drainage, Color/Appearance: Serous Amount (ml): 1,600 <Jay Lawton MD - Last Filed: 06/04/17 15:15> Procedure Note Procedure: I supervised and was present during the entire procedure. Jay Lawton MD
--- NOTE | 2017-06-04 16:04 | PN ---
Progress Note, Physician History of Present Illness: Pt states he feels better. Has b/l Chest tubes. SOB improved. No specific complaints. Tmax 99.8F but wbc normalizing. Pleuritic chest pain resolved. - Current Medication List Current Medications: Active Medications Acetaminophen (Tylenol -) 650 mg PO Q6H PRN PRN Reason: FEVER OR PAIN Albuterol/Ipratropium (Duoneb -) 1 amp NEB Q4H PRN Chlorhexidine Gluconate (Hibiclens For Decolonization -) 1 applic TP HS [facility] Last Admin: 06/03/17 23:00 Dose: 1 applic Azithromycin 500 mg/ Dextrose 250 mls @ 250 mls/hr IVPB DAILY [facility] Last Admin: 06/04/17 09:37 Dose: 250 mls/hr Ceftriaxone Sodium 2 gm/ (Dextrose) 100 mls @ 200 mls/hr IVPB DAILY [facility] Last Admin: 06/04/17 09:12 Dose: 200 mls/hr Mupirocin (Bactroban Ointment (For Decolonization) -) 1 applic NS BID [facility] Stop: 06/06/17 21:59 Last Admin: 06/04/17 11:01 Dose: 1 applic - Objective Vital Signs: Vital Signs Temperature 98.4 F 06/04/17 12:00 Pulse Rate 96 H 06/04/17 12:00 Respiratory Rate 30 H 06/04/17 12:00 Blood Pressure 141/84 06/04/17 12:00 O2 Sat by Pulse Oximetry (%) 97 06/04/17 12:06 Constitutional: Yes: No Distress, Calm Neck: Yes: Supple Cardiovascular: Yes: Regular Rate and Rhythm Respiratory: Yes: Diminished (b/l bases), Other (b/l chest tubes: Rt with serosanguinous fluid, Lt with serous drainage) Gastrointestinal: Yes: Normal Bowel Sounds, Soft Extremities: Yes: WNL Labs: CBC, BMP 06/04/17 05:15 06/04/17 05:15 INR, PTT INR 1.16 (0.82-1.09) H 06/04/17 05:15 Microbiology 06/01/17 14:50 Pleural Fluid AFB Smear Concentration - Preliminary 06/01/17 14:50 Pleural Fluid Mycobacterial Culture - Preliminary 06/01/17 14:50 Pleural Fluid Gram Stain - Final 06/01/17 14:50 Pleural Fluid Body Fluid Culture - Final NO GROWTH OF AEROBIC ORGANISMS AFTER 48 HOURS INCUBATION 06/01/17 14:50 Pleural Fluid Anaerobic Culture - Final NO ANAEROBES WERE ISOLATED 05/28/17 16:40 Blood - Peripheral Venous Blood Culture - Final NO GROWTH AFTER 5 DAYS INCUBATION 05/28/17 16:40 Blood - Peripheral Venous Blood Culture - Final NO GROWTH AFTER 5 DAYS INCUBATION 06/01/17 14:50 Pleural Fluid SULLY Preparation - Preliminary 06/01/17 14:50 Pleural Fluid Fungal Culture - Preliminary 05/28/17 15:41 Urine - Urine Clean Catch Urine Culture - Final NO GROWTH OBTAINED 05/29/17 18:00 Urine For Antigen Detection Legionella Antigen - Final 05/29/17 18:00 Urine For Antigen Detection Streptococcus pneumoniae Antigen (M - Final 05/28/17 19:40 Nasopharyngeal Swab Influenza Types A,B Antigen (JAHAIRA) - Final 05/28/17 19:40 Nasopharyngeal Swab - Final HIV Ab negative Hep C Ab - negative Hep B core Ab- negative Problem List - Problems (1) Leukocytosis Code(s): D72.829 - ELEVATED WHITE BLOOD CELL COUNT, UNSPECIFIED (2) Fever Code(s): R50.9 - FEVER, UNSPECIFIED (3) Pneumonia Code(s): J18.9 - PNEUMONIA, UNSPECIFIED ORGANISM Qualifiers: Pneumonia type: due to unspecified organism Laterality: bilateral Lung location: unspecified part of lung Qualified Code(s): J18.9 - Pneumonia, unspecified organism (4) Pleural effusion associated with pulmonary infection Code(s): J18.9 - PNEUMONIA, UNSPECIFIED ORGANISM; J91.8 - PLEURAL EFFUSION IN OTHER CONDITIONS CLASSIFIED ELSEWHERE (5) Sepsis Code(s): A41.9 - SEPSIS, UNSPECIFIED ORGANISM Assessment/Plan PNA with B/L pleural effusions with loculation s/p thoracentesis/ b/l Chest tubes placed, pain resolved Leukocytosis - resolving - pleural fluid cultures with no growth, AFB smear, fungal cultures pending - continue monitor temps - cont ceftriaxone, zithromax - f/u pleural fluid final cultures - close monitoring
[2017-06-04 18:12] LABS: TOTAL PROTEIN,PLEURAL FLUID 4.627
[2017-06-04] MEDS: IBUPROFEN 400 MG TABLET (FP) PO PRN (18:26)
[2017-06-04] MEDS ORDERED: traMADol HCL 50 MG TABLET PO PRN (19:15)
[2017-06-04 21:05] LABS: PLEURAL FLUID APPEARANCE CLEAR; PLEURAL FLUID COLOR YELLOW; PLEURAL FLUID SOURCE PLEURAL
[2017-06-04] MEDS: CHLORHEXIDINE GLUCONATE 4% CLEANSER FOR DECOLONIZATION TP SCH (21:06)
--- NOTE | 2017-06-04 21:34 | PN ---
Progress Note, Physician History of Present Illness: doing well - Current Medication List Current Medications: Active Medications Acetaminophen (Tylenol -) 650 mg PO Q6H PRN PRN Reason: FEVER OR PAIN Albuterol/Ipratropium (Duoneb -) 1 amp NEB Q4H PRN Chlorhexidine Gluconate (Hibiclens For Decolonization -) 1 applic TP HS [facility] Last Admin: 06/04/17 21:06 Dose: 1 applic Ceftriaxone Sodium 2 gm/ (Dextrose) 100 mls @ 200 mls/hr IVPB DAILY [facility] Last Admin: 06/04/17 09:12 Dose: 200 mls/hr Ibuprofen (Motrin -) 400 mg PO Q6H PRN PRN Reason: PAIN Last Admin: 06/04/17 18:26 Dose: 400 mg Mupirocin (Bactroban Ointment (For Decolonization) -) 1 applic NS BID [facility] Stop: 06/06/17 21:59 Last Admin: 06/04/17 21:05 Dose: 1 applic Tramadol HCl (Ultram -) 50 mg PO Q6H PRN PRN Reason: PAIN Last Admin: 06/04/17 20:57 Dose: 50 mg - Objective Vital Signs: Vital Signs Temperature 98.7 F 06/04/17 16:00 Pulse Rate 94 H 06/04/17 16:00 Respiratory Rate 24 06/04/17 16:00 Blood Pressure 132/74 06/04/17 16:00 O2 Sat by Pulse Oximetry (%) 93 L 06/04/17 13:00 Constitutional: Yes: No Distress HENT: Yes: Atraumatic Neck: Yes: Supple Cardiovascular: Yes: Regular Rate and Rhythm Respiratory: Yes: Rales, Rhonchi Gastrointestinal: Yes: Normal Bowel Sounds Extremities: Yes: WNL Neurological: Yes: Alert, Oriented Labs: CBC, BMP 06/04/17 05:15 06/04/17 05:15 INR, PTT INR 1.16 (0.82-1.09) H 06/04/17 05:15 Problem List - Problems (1) Pneumonia Assessment/Plan: on iv abx now has chest tube vats Code(s): J18.9 - PNEUMONIA, UNSPECIFIED ORGANISM Qualifiers: Pneumonia type: due to unspecified organism Laterality: bilateral Lung location: unspecified part of lung Qualified Code(s): J18.9 - Pneumonia, unspecified organism (2) Fever Assessment/Plan: afebrile Code(s): R50.9 - FEVER, UNSPECIFIED (3) Leukocytosis Assessment/Plan: wbc still elevated Code(s): D72.829 - ELEVATED WHITE BLOOD CELL COUNT, UNSPECIFIED (4) Pleural effusion associated with pulmonary infection Code(s): J18.9 - PNEUMONIA, UNSPECIFIED ORGANISM; J91.8 - PLEURAL EFFUSION IN OTHER CONDITIONS CLASSIFIED ELSEWHERE (5) Sepsis Code(s): A41.9 - SEPSIS, UNSPECIFIED ORGANISM
[2017-06-05 01:39] LABS: PLEURAL FLUID LYMPHOCYTES 7 %; PLEURAL FLUID MACROPHAGES 57 %; PLEURAL FLUID NEUTROPHIL 21 %
[2017-06-05 06:03] LABS: BASO % 0.7 % (0-2.0); EOS % 1.6 % (0-4.5); MCHC 33.4 g/dl (32.0-35.9); MEAN CELL VOLUME 92.8 fl (80-96); MEAN PLT VOLUME 8.3 fl (7.5-11.1); NEUT % 76.2 % (42.8-82.8); PLATELET COUNT 259 K/MM3 (134-434); RDW 13.1 % (11.9-15.9)
[2017-06-05 06:26] LABS: ANION GAP 7 (8-16); CALCIUM 8.1 mg/dL (8.5-10.1); CO2 32 mmol/L (21-32); CREATININE 0.8 mg/dL (0.7-1.3); GLUCOSE,RANDOM 106 mg/dL (74-106)
--- NOTE | 2017-06-05 09:08 | PN ---
Physical Exam: SUBJECTIVE: Patient seen and examined 24 hr events -Afebrile -L chest tube clamped overnight, R- to suction -pt received tramadol for pain, otherwise no SOB, breathing well Today -As per nursing, b/l chest tubes draining serous fluid -on 50% venti mask, sat 97 -Denies WHITE, fever, chills, SOB, chest pain -For R VATS tomorrow, NPO after midnight OBJECTIVE: Vital Signs Period Temp Pulse Resp BP Sys/Novak Pulse Ox Last 24 Hr 98.2 F-98.7 F 77-98 15-30 102-141/54-84 92-97 GENERAL: The patient is awake, alert, in no acute distress. Sitting up in bed, 50% venti mask HEAD: Normal with no signs of trauma. EYES: PERRL, extraocular movements intact, sclera anicteric, conjunctiva clear. NECK: Trachea midline, supple. LUNGS: did not appreciate wheezes, crackles, or rhonchi. without accessory m. usage. Chest tube drainage- straw colored on L, bloody on R HEART: Regular rate and rhythm, S1, S2 without murmur, rub or gallop. ABDOMEN: Soft, obese, nontender, nondistended, normoactive bowel sounds EXTREMITIES: 2+ dorsalis pedis pulses, warm, well-perfused, no edema. NEUROLOGICAL: Cranial nerves II through XII grossly intact. Laboratory Results - last 24 hr 06/04/17 06/04/17 06/04/17 14:58 14:58 16:30 WBC RBC Hgb Hct MCV MCH MCHC RDW Plt Count MPV Neutrophils % Lymphocytes % Monocytes % Eosinophils % Basophils % Sodium Potassium Chloride Carbon Dioxide Anion Gap BUN Creatinine Random Glucose Calcium Pleural Fluid Source Pleural Pleural Color Yellow Pleural Appearance Clear Pleural pH Pleural WBC 589 Pleural RBC 1441 Pleural Neutrophils 21 Pleural Lymphocytes 7 Pleural Macrophages 57 Pleural Mesothelial 15 Pleural Total Protein Pleural Albumin 2 Pleural LDH 169 Pleural Glucose 105.038 Pleural Amylase 17.55 Pleural Cholesterol Pleural Triglycerides 06/04/17 06/04/17 06/04/17 16:30 16:30 Unknown WBC RBC Hgb Hct MCV MCH MCHC RDW Plt Count MPV Neutrophils % Lymphocytes % Monocytes % Eosinophils % Basophils % Sodium Potassium Chloride Carbon Dioxide Anion Gap BUN Creatinine Random Glucose Calcium Pleural Fluid Source Pleural Color Pleural Appearance Pleural pH Cancelled 8 Pleural WBC Pleural RBC Pleural Neutrophils Pleural Lymphocytes Pleural Macrophages Pleural Mesothelial Pleural Total Protein 4.627 Pleural Albumin Pleural LDH Pleural Glucose Pleural Amylase Pleural Cholesterol 67 Pleural Triglycerides 42 06/05/17 06/05/17 05:00 05:00 WBC 12.0 H RBC 4.33 Hgb 13.4 Hct 40.2 MCV 92.8 MCH 31.0 MCHC 33.4 RDW 13.1 Plt Count 259 MPV 8.3 Neutrophils % 76.2 Lymphocytes % 13.0 Monocytes % 8.5 Eosinophils % 1.6 Basophils % 0.7 Sodium 136 Potassium 4.5 Chloride 97 L Carbon Dioxide 32 Anion Gap 7 L BUN 13 Creatinine 0.8 Random Glucose 106 Calcium 8.1 L Pleural Fluid Source Pleural Color Pleural Appearance Pleural pH Pleural WBC Pleural RBC Pleural Neutrophils Pleural Lymphocytes Pleural Macrophages Pleural Mesothelial Pleural Total Protein Pleural Albumin Pleural LDH Pleural Glucose Pleural Amylase Pleural Cholesterol Pleural Triglycerides Active Medications Generic Name Dose Route Start Last Admin Trade Name Freq PRN Reason Stop Dose Admin Acetaminophen 650 mg 06/01/17 18:50 Tylenol - PO Q6H PRN FEVER OR PAIN Albuterol/Ipratropium 1 amp 06/01/17 18:50 Duoneb - NEB Q4H PRN Chlorhexidine Gluconate 1 applic 06/01/17 22:00 06/04/17 21:06 Hibiclens For Decolonization - TP 1 applic HS [facility] Administration Ceftriaxone Sodium 2 gm/ 100 mls @ 200 mls/hr 06/02/17 10:00 06/04/17 09:12 Dextrose IVPB 200 mls/hr DAILY [facility] Administration Ibuprofen 400 mg 06/04/17 18:03 06/04/17 18:26 Motrin - PO 400 mg Q6H PRN Administration PAIN Mupirocin 1 applic 06/01/17 22:00 06/04/17 21:05 Bactroban Ointment (For Decolonization) - NS 06/06/17 21:59 1 applic BID [facility] Administration Tramadol HCl 50 mg 06/04/17 19:15 06/04/17 20:57 Ultram - PO 50 mg Q6H PRN Administration PAIN ASSESSMENT/PLAN: 37 y/o M PMH 1ppd smoker (30 pack years), who initially came to the ED for R flank pain x 2 days, which was worse on deep inspiration and a/w fever and chills. Pt later found to have loculated R pleural effusion and L pleural effusion, which he is being managed for in ICU. #PULMONARY -Possible viral etiology, quick clinical resolution, despite pt's non-toxic appearance -Pt for R VATS tomorrow as pt's CXR today worsened. NPO after midnight -s/p L pigtail chest tube (06/04) - low wall suction -s/p R chest tube (06/02)- low wall suction -F/u chest tube output -Pleural fluid analysis suggestive of exudative -F/u pleural fluid cytology report -F/u pleural cx -Continue ceftriaxone and azithromycin -Nebs 1 amp q4h PRN -Tylenol 650 mg PO q6h PRN for pain -Prelim AFB (-) -SULLY: (-) #DVT Prophylaxis SCD's #F/E/N Currently not on IVF NPO after midnight d/t VATS Will continue to follow electrolytes #Dispo Continued ICU management. Visit type - Emergency Visit Emergency Visit: No - New Patient This patient is new to me today: No - Critical Care Critical Care patient: Yes Total Critical Care Time (in minutes): 41 Critical Care Statement: The care of this patient involved high complexity decision making to prevent further life threatening deterioration of the patient 's condition and/or to evaluate & treat vital organ system(s) failure or risk of failure.
[2017-06-05] MEDS ORDERED: PT OWN MED DRAWER 7, Y5N ONE ×2 (09:51→21:53)
[2017-06-05] MEDS: MUPIROCIN 2% TOPICAL OINTMENT FOR DECOLONIZATION NS SCH ×2 (09:52→21:15)
[2017-06-05] MEDS: CEFTRIAXONE 2 GM in DEXTROSE 5%-WATER - 100 ML IVPB SCH (09:52)
[2017-06-05] MEDS: IBUPROFEN 400 MG TABLET (FP) PO PRN (09:59)
--- NOTE | 2017-06-05 12:44 | PN ---
Teaching Attending Note Name of Resident: Heather Lutz ATTENDING PHYSICIAN STATEMENT I saw and evaluated the patient. I reviewed the resident's note and discussed the case with the resident. I agree with the resident's findings and plan as documented. SUBJECTIVE: Pt seen and examined in the ICU. Left pigtail draining 2.6L so far. Pleural fluid analysis consistent with exudate. No fevers or chills. Saturating well on 50% ventimask. OBJECTIVE: Last Vital Signs Temp Pulse Resp BP Pulse Ox 99.4 F 81 22 123/63 94 L 06/05/17 10:00 06/05/17 12:00 06/05/17 12:00 06/05/17 12:00 06/05/17 12:24 Intake & Output 06/02/17 06/03/17 06/04/17 06/05/17 23:59 23:59 23:59 23:59 Intake Total 2678 935 7685 500 Output Total 841 888 9290 1500 Balance 600 -515 -1580 -1000 Weight 238 lb 14.4 oz Gen: less tachypneic Heart: RRR Lung: decreased breath sounds right base Abd: soft, nontender Ext: no edema Chest tube: left with serous drainage, right with serosanguinous drainage, no air leaks CBC, BMP 06/05/17 05:00 06/05/17 05:00 Active Medications Acetaminophen (Tylenol -) 650 mg PO Q6H PRN PRN Reason: FEVER OR PAIN Albuterol/Ipratropium (Duoneb -) 1 amp NEB Q4H PRN Chlorhexidine Gluconate (Hibiclens For Decolonization -) 1 applic TP HS [facility] Last Admin: 06/04/17 21:06 Dose: 1 applic Ceftriaxone Sodium 2 gm/ (Dextrose) 100 mls @ 200 mls/hr IVPB DAILY [facility] Last Admin: 06/05/17 09:52 Dose: 200 mls/hr Ibuprofen (Motrin -) 400 mg PO Q6H PRN PRN Reason: PAIN Last Admin: 06/05/17 09:59 Dose: 400 mg Mupirocin (Bactroban Ointment (For Decolonization) -) 1 applic NS BID [facility] Stop: 06/06/17 21:59 Last Admin: 06/05/17 09:52 Dose: 1 applic Tramadol HCl (Ultram -) 50 mg PO Q6H PRN PRN Reason: PAIN Last Admin: 06/04/17 20:57 Dose: 50 mg ASSESSMENT AND PLAN: Acute Hypoxic Respiratory Failure Pneumonia Pleural Effusions r/o Empyema - continue antibiotics - continue pigtails to low wall suction - daily CXR - will discuss with thoracic surgery, likely will need R VATS - O2 to keep SpO2 >90% - pain control - DVT prophylaxis Problem List - Problems (1) Pneumonia Code(s): J18.9 - PNEUMONIA, UNSPECIFIED ORGANISM Qualifiers: Pneumonia type: due to unspecified organism Laterality: bilateral Lung location: unspecified part of lung Qualified Code(s): J18.9 - Pneumonia, unspecified organism
--- NOTE | 2017-06-05 14:46 | PATH ---
Cytology Non-Gynecological Report Patient Name: YANG GARCIA [facility]. Rec. #: [id number] /Age/Gender: 1980 (Age: 37) / M Account: [id number] Location: ICU [facility] Taken: 06/01/2017 Received: 06/04/2017 Reported: 06/05/2017 Physicians: Yogi Mclean M.D. Hyerim Lee Gabriel, FNP Specimen(s) Received A: PLEURAL FLUID B: PLEURAL FLUID Clinical History Bilateral pleural effusion Final Diagnosis A & B. PLEURAL FLUID, RIGHT, THORACENTESIS: SATISFACTORY FOR EVALUATION NO MALIGNANT CELLS IDENTIFIED. ACUTE INFLAMMATORY INFILTRATE COMPRISED OF NUMEROUS NEUTROPHILS, FEW MACROPHAGES, AND FEW LYMPHOCYTES. Electronically Signed Carmelita Pryor M.D. Gross Description A. Approximately 50 cc of yellow fluid received fixed in 50% alcohol. Two cytofunnels and one cellblock prepared. B. Approximately 5 cc of yellow fluid received fresh. Two cytofunnels and one cellblock prepared.
--- NOTE | 2017-06-05 17:10 | PN ---
Progress Note, Physician History of Present Illness: Pt is sitting up. States he feels well. Denies pain. Is afebrile, wbc normalizing. - Current Medication List Current Medications: Active Medications Acetaminophen (Tylenol -) 650 mg PO Q6H PRN PRN Reason: FEVER OR PAIN Albuterol/Ipratropium (Duoneb -) 1 amp NEB Q4H PRN Chlorhexidine Gluconate (Hibiclens For Decolonization -) 1 applic TP HS [facility] Last Admin: 06/04/17 21:06 Dose: 1 applic Ceftriaxone Sodium 2 gm/ (Dextrose) 100 mls @ 200 mls/hr IVPB DAILY [facility] Last Admin: 06/05/17 09:52 Dose: 200 mls/hr Ibuprofen (Motrin -) 400 mg PO Q6H PRN PRN Reason: PAIN Last Admin: 06/05/17 09:59 Dose: 400 mg Mupirocin (Bactroban Ointment (For Decolonization) -) 1 applic NS BID [facility] Stop: 06/06/17 21:59 Last Admin: 06/05/17 09:52 Dose: 1 applic Tramadol HCl (Ultram -) 50 mg PO Q6H PRN PRN Reason: PAIN Last Admin: 06/04/17 20:57 Dose: 50 mg - Objective Vital Signs: Vital Signs Temperature 98.8 F 06/05/17 14:00 Pulse Rate 86 06/05/17 16:00 Respiratory Rate 23 06/05/17 16:00 Blood Pressure 133/75 06/05/17 16:00 O2 Sat by Pulse Oximetry (%) 93 L 06/05/17 14:44 Constitutional: Yes: No Distress, Calm Neck: Yes: Supple Cardiovascular: Yes: Regular Rate and Rhythm Respiratory: Yes: Diminished (Rt lung with crackles Lt lung with basilar crackles), Other (Lt pigtail cath, draining exudative fluid) Gastrointestinal: Yes: Normal Bowel Sounds, Soft Genitourinary: Yes: WNL Integumentary: Yes: WNL Neurological: Yes: Alert, Oriented Labs: CBC, BMP 06/05/17 05:00 06/05/17 05:00 INR, PTT INR 1.16 (0.82-1.09) H 06/04/17 05:15 Microbiology 06/01/17 14:50 Pleural Fluid AFB Smear Concentration - Final 06/01/17 14:50 Pleural Fluid Mycobacterial Culture - Preliminary 06/01/17 14:50 Pleural Fluid Gram Stain - Final 06/01/17 14:50 Pleural Fluid Body Fluid Culture - Final NO GROWTH OF AEROBIC ORGANISMS AFTER 48 HOURS INCUBATION 06/01/17 14:50 Pleural Fluid Anaerobic Culture - Final NO ANAEROBES WERE ISOLATED 05/28/17 16:40 Blood - Peripheral Venous Blood Culture - Final NO GROWTH AFTER 5 DAYS INCUBATION 05/28/17 16:40 Blood - Peripheral Venous Blood Culture - Final NO GROWTH AFTER 5 DAYS INCUBATION 06/01/17 14:50 Pleural Fluid SULLY Preparation - Preliminary 06/01/17 14:50 Pleural Fluid Fungal Culture - Preliminary 05/28/17 15:41 Urine - Urine Clean Catch Urine Culture - Final NO GROWTH OBTAINED 05/29/17 18:00 Urine For Antigen Detection Legionella Antigen - Final 05/29/17 18:00 Urine For Antigen Detection Streptococcus pneumoniae Antigen (M - Final 05/28/17 19:40 Nasopharyngeal Swab Influenza Types A,B Antigen (JAHAIRA) - Final 05/28/17 19:40 Nasopharyngeal Swab - Final - ....Imaging Chest X-ray: Report Reviewed Problem List - Problems (1) Leukocytosis Code(s): D72.829 - ELEVATED WHITE BLOOD CELL COUNT, UNSPECIFIED (2) Fever Code(s): R50.9 - FEVER, UNSPECIFIED (3) Pneumonia Code(s): J18.9 - PNEUMONIA, UNSPECIFIED ORGANISM Qualifiers: Pneumonia type: due to unspecified organism Laterality: bilateral Lung location: unspecified part of lung Qualified Code(s): J18.9 - Pneumonia, unspecified organism (4) Pleural effusion associated with pulmonary infection Code(s): J18.9 - PNEUMONIA, UNSPECIFIED ORGANISM; J91.8 - PLEURAL EFFUSION IN OTHER CONDITIONS CLASSIFIED ELSEWHERE (5) Sepsis Code(s): A41.9 - SEPSIS, UNSPECIFIED ORGANISM Assessment/Plan Pt no longer febrile, leukocytosis resolving Pleural fluid cultures without growth, AFB smear neg AFB/Fungal cultures results pending pt scheduled for VATs tomorrow continue antibiotics for now
[2017-06-05] MEDS: CHLORHEXIDINE GLUCONATE 4% CLEANSER FOR DECOLONIZATION TP SCH (21:15)
--- NOTE | 2017-06-05 21:32 | PN ---
Progress Note, Physician - Current Medication List Current Medications: Active Medications Acetaminophen (Tylenol -) 650 mg PO Q6H PRN PRN Reason: FEVER OR PAIN Albuterol/Ipratropium (Duoneb -) 1 amp NEB Q4H PRN Chlorhexidine Gluconate (Hibiclens For Decolonization -) 1 applic TP HS [facility] Last Admin: 06/05/17 21:15 Dose: 1 applic Ceftriaxone Sodium 2 gm/ (Dextrose) 100 mls @ 200 mls/hr IVPB DAILY [facility] Last Admin: 06/05/17 09:52 Dose: 200 mls/hr Ibuprofen (Motrin -) 400 mg PO Q6H PRN PRN Reason: PAIN Last Admin: 06/05/17 09:59 Dose: 400 mg Mupirocin (Bactroban Ointment (For Decolonization) -) 1 applic NS BID [facility] Stop: 06/06/17 21:59 Last Admin: 06/05/17 21:15 Dose: 1 applic Tramadol HCl (Ultram -) 50 mg PO Q6H PRN PRN Reason: PAIN Last Admin: 06/04/17 20:57 Dose: 50 mg - Objective Vital Signs: Vital Signs Temperature 98.9 F 06/05/17 18:00 Pulse Rate 88 06/05/17 18:00 Respiratory Rate 28 H 06/05/17 18:00 Blood Pressure 140/65 06/05/17 18:00 O2 Sat by Pulse Oximetry (%) 93 L 06/05/17 14:44 Constitutional: Yes: No Distress HENT: Yes: Atraumatic Neck: Yes: Supple Cardiovascular: Yes: Regular Rate and Rhythm Respiratory: Yes: CTA Bilaterally Gastrointestinal: Yes: Normal Bowel Sounds Extremities: Yes: WNL Neurological: Yes: Alert, Oriented Labs: CBC, BMP 06/05/17 05:00 06/05/17 05:00 INR, PTT INR 1.16 (0.82-1.09) H 06/04/17 05:15 Problem List - Problems (1) Pneumonia Assessment/Plan: on iv abx has chest tube vats tomorrow Code(s): J18.9 - PNEUMONIA, UNSPECIFIED ORGANISM Qualifiers: Pneumonia type: due to unspecified organism Laterality: bilateral Lung location: unspecified part of lung Qualified Code(s): J18.9 - Pneumonia, unspecified organism (2) Fever Assessment/Plan: afebrile Code(s): R50.9 - FEVER, UNSPECIFIED (3) Leukocytosis Assessment/Plan: wbc still elevated Code(s): D72.829 - ELEVATED WHITE BLOOD CELL COUNT, UNSPECIFIED (4) Pleural effusion associated with pulmonary infection Code(s): J18.9 - PNEUMONIA, UNSPECIFIED ORGANISM; J91.8 - PLEURAL EFFUSION IN OTHER CONDITIONS CLASSIFIED ELSEWHERE (5) Sepsis Code(s): A41.9 - SEPSIS, UNSPECIFIED ORGANISM
[2017-06-06 05:54] LABS: BASO % 0.7 % (0-2.0); EOS % 2.6 % (0-4.5); MCH 31.7 pg (25.7-33.7); MCHC 34.4 g/dl (32.0-35.9); MEAN CELL VOLUME 92.2 fl (80-96); MEAN PLT VOLUME 8.3 fl (7.5-11.1); NEUT % 69.4 % (42.8-82.8); PLATELET COUNT 273 K/MM3 (134-434); RDW 12.7 % (11.9-15.9); WHITE BLOOD COUNT 9.7 K/mm3 (4.0-10.0)
[2017-06-06 06:17] LABS: ANION GAP 8 (8-16); CALCIUM 8.1 mg/dL (8.5-10.1); CO2 31 mmol/L (21-32); CREATININE 0.8 mg/dL (0.7-1.3); GLUCOSE,RANDOM 93 mg/dL (74-106)
[2017-06-06] MEDS ORDERED: PT OWN MED DRAWER 7, Y5N ONE (09:12)
[2017-06-06] MEDS: CEFTRIAXONE 2 GM in DEXTROSE 5%-WATER - 100 ML IVPB SCH (10:11)
[2017-06-06] MEDS: MUPIROCIN 2% TOPICAL OINTMENT FOR DECOLONIZATION NS SCH (10:11)
--- NOTE | 2017-06-06 11:49 | PN ---
Teaching Attending Note Name of Resident: Heather Lutz ATTENDING PHYSICIAN STATEMENT I saw and evaluated the patient. I reviewed the resident's note and discussed the case with the resident. I agree with the resident's findings and plan as documented. SUBJECTIVE: Pt seen and examined in the ICU. Feels better today. Denies shortness of breath or chest pain. Saturating mid 90s on 40% ventimask. OBJECTIVE: Last Vital Signs Temp Pulse Resp BP Pulse Ox 98.9 F 78 20 114/68 100 06/06/17 10:00 06/06/17 10:00 06/06/17 10:00 06/06/17 10:00 06/06/17 11:43 Intake & Output 06/03/17 06/04/17 06/05/17 06/06/17 23:59 23:59 23:59 23:59 Intake Total 200 1350 1730 Output Total 715 2930 2430 1035 Balance -515 -1580 -700 -1035 Weight 238 lb 14.4 oz 239 lb 6.4 oz Gen: NAD on ventimask Heart: RRR Lung: decreased breath sounds right base Abd: soft, nontender Ext: no edema Chest tube: serous drainage, no air leaks CBC, BMP 06/06/17 05:00 06/06/17 05:00 Active Medications Acetaminophen (Tylenol -) 650 mg PO Q6H PRN PRN Reason: FEVER OR PAIN Last Admin: 06/06/17 00:37 Dose: 650 mg Albuterol/Ipratropium (Duoneb -) 1 amp NEB Q4H PRN Chlorhexidine Gluconate (Hibiclens For Decolonization -) 1 applic TP HS [facility] Last Admin: 06/05/17 21:15 Dose: 1 applic Ceftriaxone Sodium 2 gm/ (Dextrose) 100 mls @ 200 mls/hr IVPB DAILY [facility] Last Admin: 06/06/17 10:11 Dose: 200 mls/hr Ibuprofen (Motrin -) 400 mg PO Q6H PRN PRN Reason: PAIN Last Admin: 06/05/17 09:59 Dose: 400 mg Mupirocin (Bactroban Ointment (For Decolonization) -) 1 applic NS BID [facility] Stop: 06/06/17 21:59 Last Admin: 06/06/17 10:11 Dose: 1 applic Tramadol HCl (Ultram -) 50 mg PO Q6H PRN PRN Reason: PAIN Last Admin: 06/04/17 20:57 Dose: 50 mg ASSESSMENT AND PLAN: Acute Hypoxic Respiratory Failure Pneumonia Pleural Effusions r/o Empyema - continue antibiotics - continue pigtails to low wall suction - monitor chest tube output - daily CXR - for R VATS today - O2 to keep SpO2 >90% - pain control - DVT prophylaxis Problem List - Problems (1) Pneumonia Code(s): J18.9 - PNEUMONIA, UNSPECIFIED ORGANISM Qualifiers: Pneumonia type: due to unspecified organism Laterality: bilateral Lung location: unspecified part of lung Qualified Code(s): J18.9 - Pneumonia, unspecified organism
--- NOTE | 2017-06-06 13:48 | PN ---
Physical Exam: SUBJECTIVE: Patient seen and examined at bedside. 24 hr events -afebrile, low temps ~99F -as per nurse, desats to 90s when venti mask off Today -denies WHITE, fever, chills, SOB, or chest pain -for R VATS today with Dr. Harris @ 2pm, confirmed with OR -on venti mask, sat 95% -L chest tube drainage: 425 ml out over 24 hr -R chest tube drainage: 240 ml out over 24 hr OBJECTIVE: Vital Signs Period Temp Pulse Resp BP Sys/Novak Pulse Ox Last 24 Hr 98.8 F-99.6 F 60-93 14-28 114-140/60-75 93-100 GENERAL: The patient is awake, alert, and fully oriented, in no acute distress. on 50% venti mask. Going to OR now HEAD: Normal with no signs of trauma. EYES: PERRL, extraocular movements intact, sclera anicteric, conjunctiva clear. NECK: Trachea midline, full range of motion, supple. LUNGS: Breath sounds equal, clear to auscultation bilaterally, no wheezes, no crackles, no accessory muscle use. HEART: Regular rate and rhythm, S1, S2 without murmur, rub or gallop. ABDOMEN: Soft, nontender, nondistended, normoactive bowel sounds, no guarding, no rebound EXTREMITIES: 2+ dorsalis pedis pulses, warm, well-perfused, no edema. NEUROLOGICAL: Cranial nerves II through XII grossly intact. Laboratory Results - last 24 hr 06/04/17 06/05/17 06/06/17 05:15 17:00 05:00 WBC 9.7 RBC 4.24 Hgb 13.4 Hct 39.1 MCV 92.2 MCH 31.7 MCHC 34.4 RDW 12.7 Plt Count 273 MPV 8.3 Neutrophils % 69.4 Lymphocytes % 18.1 D Monocytes % 9.2 Eosinophils % 2.6 Basophils % 0.7 Sodium Potassium Chloride Carbon Dioxide Anion Gap BUN Creatinine Random Glucose Calcium Blood Type A POSITIVE A POSITIVE Antibody Screen Negative Crossmatch See Detail 06/06/17 05:00 WBC RBC Hgb Hct MCV MCH MCHC RDW Plt Count MPV Neutrophils % Lymphocytes % Monocytes % Eosinophils % Basophils % Sodium 136 Potassium 4.2 Chloride 97 L Carbon Dioxide 31 Anion Gap 8 BUN 11 Creatinine 0.8 Random Glucose 93 Calcium 8.1 L Blood Type Antibody Screen Crossmatch Active Medications Generic Name Dose Route Start Last Admin Trade Name Freq PRN Reason Stop Dose Admin Acetaminophen 650 mg 06/01/17 18:50 06/06/17 00:37 Tylenol - PO 650 mg Q6H PRN Administration FEVER OR PAIN Albuterol/Ipratropium 1 amp 06/01/17 18:50 Duoneb - NEB Q4H PRN Chlorhexidine Gluconate 1 applic 06/01/17 22:00 06/05/17 21:15 Hibiclens For Decolonization - TP 1 applic HS ROXANE Administration Ceftriaxone Sodium 2 gm/ 100 mls @ 200 mls/hr 06/02/17 10:00 06/06/17 10:11 Dextrose IVPB 200 mls/hr DAILY ROX[facility] Administration Ibuprofen 400 mg 06/04/17 18:03 06/05/17 09:59 Motrin - PO 400 mg Q6H PRN Administration PAIN Mupirocin 1 applic 06/01/17 22:00 06/06/17 10:11 Bactroban Ointment (For Decolonization) - NS 06/06/17 21:59 1 applic BID ROXANE Administration Tramadol HCl 50 mg 06/04/17 19:15 06/04/17 20:57 Ultram - PO 50 mg Q6H PRN Administration PAIN ASSESSMENT/PLAN: 37 y/o M PMH 1ppd smoker (30 pack years), who initially came to the ED for R flank pain x 2 days, which was worse on deep inspiration and a/w fever and chills. Pt later found to have loculated R pleural effusion and L pleural effusion, which he is being managed for in ICU. #PULMONARY -Possible viral etiology, quick clinical resolution, despite pt's non-toxic appearance -CXR: improved L pleural effusion, R pleural effusion with atelectasis -Pt for R VATS today- 2pm -s/p L pigtail chest tube (06/04) - low wall suction -s/p R chest tube (06/02)- low wall suction -L chest tube may be able to be removed tomorrow -F/u chest tube output -Pleural fluid analysis suggestive of exudative -F/u pleural fluid cytology report- still pending -Continue ceftriaxone and azithromycin -Nebs 1 amp q4h PRN -Tylenol 650 mg PO q6h PRN for pain -Prelim AFB (-) -SULLY: (-) #DVT Prophylaxis SCD's #F/E/N Currently not on IVF Will continue to follow electrolytes Pt has been NPO for his procedure, will f/u his diet after #Dispo Continued ICU management. Visit type - Emergency Visit Emergency Visit: No - New Patient This patient is new to me today: No - Critical Care Critical Care patient: Yes Total Critical Care Time (in minutes): 32 Critical Care Statement: The care of this patient involved high complexity decision making to prevent further life threatening deterioration of the patient 's condition and/or to evaluate & treat vital organ system(s) failure or risk of failure.
[2017-06-06] MEDS ORDERED: BUPIVACAINE HCL/PF 0.25% (2.5MG/ML) 10 ML VIAL ONE (14:50)
[2017-06-06] MEDS ORDERED: LIDOCAINE 1%/EPI 1:100000 (20 ML MULTI DOSE VIAL) ONE (14:50)
--- NOTE | 2017-06-06 15:05 | PN ---
Progress Note, Physician History of Present Illness: Pt states he feels well. Denies chest pain, shortness of breath, cough, fever/ chills, abdominal pain. on Ventimask. Tmax 99.6. - Current Medication List Current Medications: Active Medications Acetaminophen (Tylenol -) 650 mg PO Q6H PRN PRN Reason: FEVER OR PAIN Last Admin: 06/06/17 00:37 Dose: 650 mg Albuterol/Ipratropium (Duoneb -) 1 amp NEB Q4H PRN Chlorhexidine Gluconate (Hibiclens For Decolonization -) 1 applic TP HS [facility] Last Admin: 06/05/17 21:15 Dose: 1 applic Ceftriaxone Sodium 2 gm/ (Dextrose) 100 mls @ 200 mls/hr IVPB DAILY [facility] Last Admin: 06/06/17 10:11 Dose: 200 mls/hr Ibuprofen (Motrin -) 400 mg PO Q6H PRN PRN Reason: PAIN Last Admin: 06/05/17 09:59 Dose: 400 mg Mupirocin (Bactroban Ointment (For Decolonization) -) 1 applic NS BID [facility] Stop: 06/06/17 21:59 Last Admin: 06/06/17 10:11 Dose: 1 applic Tramadol HCl (Ultram -) 50 mg PO Q6H PRN PRN Reason: PAIN Last Admin: 06/04/17 20:57 Dose: 50 mg - Objective Vital Signs: Vital Signs Temperature 98.9 F 06/06/17 10:00 Pulse Rate 72 06/06/17 12:00 Respiratory Rate 25 H 06/06/17 12:00 Blood Pressure 131/68 06/06/17 12:00 O2 Sat by Pulse Oximetry (%) 100 06/06/17 11:43 Constitutional: Yes: No Distress, Calm Neck: Yes: Supple Cardiovascular: Yes: Regular Rate and Rhythm Respiratory: Yes: Diminished (Rt mid/lower lung bruce) Gastrointestinal: Yes: Normal Bowel Sounds, Soft Genitourinary: Yes: WNL Extremities: Yes: WNL Integumentary: Yes: WNL Neurological: Yes: Alert, Oriented Labs: CBC, BMP 06/06/17 05:00 06/06/17 05:00 INR, PTT INR 1.16 (0.82-1.09) H 06/04/17 05:15 Problem List - Problems (1) Leukocytosis Code(s): D72.829 - ELEVATED WHITE BLOOD CELL COUNT, UNSPECIFIED (2) Fever Code(s): R50.9 - FEVER, UNSPECIFIED (3) Pneumonia Code(s): J18.9 - PNEUMONIA, UNSPECIFIED ORGANISM Qualifiers: Pneumonia type: due to unspecified organism Laterality: bilateral Lung location: unspecified part of lung Qualified Code(s): J18.9 - Pneumonia, unspecified organism (4) Pleural effusion associated with pulmonary infection Code(s): J18.9 - PNEUMONIA, UNSPECIFIED ORGANISM; J91.8 - PLEURAL EFFUSION IN OTHER CONDITIONS CLASSIFIED ELSEWHERE (5) Sepsis Code(s): A41.9 - SEPSIS, UNSPECIFIED ORGANISM Assessment/Plan Pt admitted with shortness of breath and severe pleuritic chest pain, fever, and leukocytosis Large pleural effusions s/p thoracentesis/catheter awaiting R VATs continue empiric antibiotics for now, bacterial cultures no growth, AFB smears neg, fungal cultures pending fevers resolving, wbc decreased trend continue monitor closely
[2017-06-06] MEDS ORDERED: PROPOFOL 20 ML ONE ×3 (15:09→18:22)
[2017-06-06] MEDS ORDERED: ROCURONIUM BROMIDE 50 MG/5 ML VIAL ONE ×2 (15:09→16:35)
[2017-06-06] MEDS ORDERED: SUCCINYLCHOLINE CHLORIDE 200 MG/10 ML VIAL ONE (15:09)
[2017-06-06] MEDS ORDERED: fentaNYL CITRATE 250 MCG/5 ML VIAL ONE ×2 (15:09→21:27)
[2017-06-06] MEDS ORDERED: MIDAZOLAM HCL 2 MG/2 ML SINGLE DOSE VIAL ONE ×2 (15:09→17:57)
[2017-06-06] MEDS ORDERED: LIDOCAINE HCL/PF 2% SDV 5ML VIAL ONE (15:12)
--- NOTE | 2017-06-06 15:18 | PATH ---
Cytology Non-Gynecological Report Patient Name: YANG GARCIA [facility]. Rec. 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 Specimen(s) Received PLEURAL FLUID Clinical History Pleural effusion Final Diagnosis PLEURAL FLUID, THORACENTESIS: SATISFACTORY FOR EVALUATION NO MALIGNANT CELLS IDENTIFIED. MESOTHELIAL CELLS, FEW NEUTROPHILS AND FEW LYMPHOCYTES PRESENT. Electronically Signed Carmelita Pryor M.D. Gross Description Approximately 50 cc of yellow fluid received fixed in 50% alcohol. Two cytofunnels and one cellblock prepared.
[2017-06-06] MEDS ORDERED: DEXAMETHASONE SOD PHOSPHATE 4 MG/1 ML VIAL ONE (16:49)
[2017-06-06] MEDS ORDERED: ONDANSETRON 4 MG/2 ML VIAL ONE (16:51)
[2017-06-06 17:29] LABS: ARTERIAL BLOOD GAS BASE EXCESS -3.6 meq/l (-2-2); ARTERIAL BLOOD GAS HCO3 20.6 meq/L (22-26); ARTERIAL BLOOD GAS pH 7.38 (7.35-7.45)
[2017-06-06 17:36] LABS: ARTERIAL BLOOD GAS PO2 38.8 mmHg (80-100)
[2017-06-06] MEDS ORDERED: HYDROmorphone HCL/PF 1 MG/ML VIAL (FOR PYXIS CHARGING ONLY) ONE (17:39)
[2017-06-06] MEDS ORDERED: ONDANSETRON 4 MG/2 ML VIAL IVPUSH PRN (18:39)
[2017-06-06] MEDS ORDERED: HYDROmorphone HCL CARPU-JECT 1 MG/1 ML DISP.SYRIN IVPUSH PRN (18:39)
--- NOTE | 2017-06-06 18:43 | PN ---
Progress Note (short form) - Note Progress Note: Pt was taken to OR for VATS procedure. However, pt did not tolerate intubation well. Pt was desatting and OR team had some difficulty getting O2 back up. Because of this, the procedure was aborted. The pt was brought back to ICU on vent with ARDS settings. Target O2 88-92. Pt currently sedated with Fentanyl and Versed. Lewis was placed. NS started at 125. BP 138/79. HR 91. O2 sat 96. RR 20.
[2017-06-06] MEDS ORDERED: FENTANYL INJECTION 500 MCG in DEXTROSE 5%-WATER - 90 ML IVPB SCH ×2 (18:45→22:10)
[2017-06-06] MEDS ORDERED: SODIUM CHLORIDE 1,000 ML IV SCH (18:45)
--- NOTE | 2017-06-06 18:45 | OP ---
Operative Note - Note: Operative Date: 06/06/17 Pre-Operative Diagnosis: B/L PNA Operation: Bronchoscopy, emergent left chest tube placement Findings: Pt had major desaturation after intubation on 100% FiO2, after bronchoscopy did not recover above 85%. Surgery aborted. Saturation decreased again after bronchoscopy and remained lower than 85%. XR showed AFTAB collapse. CT placed emergently in left and bronchoscopy done to reexpand AFTAB and did. Of note, no obvious mucus plug however. Still profoundly hypoxic after this with saturations in the 80's for few minutes and then recovered to 90's. Post-Operative Diagnosis: Same as Pre-op Surgeon: Reyes Harris Anesthesiologist/CORPORATE AFFAIRS MANAGER: Luiz Jordan Anesthesia: General Specimens Removed: BAL cultures cytology sent. Estimated Blood Loss (mls): 10 Operative Report Dictated: Yes
[2017-06-06] MEDS ORDERED: MIDAZOLAM HCL 2 MG/2 ML SINGLE DOSE VIAL IVPUSH ONE (18:46)
[2017-06-06] MEDS ORDERED: MIDAZOLAM 100 MG in SODIUM CHLORIDE 100 ML IVPB SCH ×3 (19:00→22:10)
--- NOTE | 2017-06-06 19:16 | PN ---
Progress Note, Physician History of Present Illness: intubated - Current Medication List Current Medications: Active Medications Acetaminophen (Tylenol -) 650 mg PO Q6H PRN PRN Reason: FEVER OR PAIN Last Admin: 06/06/17 00:37 Dose: 650 mg Albuterol/Ipratropium (Duoneb -) 1 amp NEB Q4H PRN Chlorhexidine Gluconate (Hibiclens For Decolonization -) 1 applic TP HS [facility] Last Admin: 06/05/17 21:15 Dose: 1 applic Hydromorphone HCl (Dilaudid Injection -) 0.5 mg IVPUSH [id number] PRN PRN Reason: PAIN Ceftriaxone Sodium 2 gm/ (Dextrose) 100 mls @ 200 mls/hr IVPB DAILY [facility] Last Admin: 06/06/17 10:11 Dose: 200 mls/hr Propofol (Diprivan -) 1,000,000 mcg in 100 mls @ 9.773 mls/hr IVPB TITR ROXANE; 15 MCG/KG/MIN PRN Reason: Protocol Ibuprofen (Motrin -) 400 mg PO Q6H PRN PRN Reason: PAIN Last Admin: 06/05/17 09:59 Dose: 400 mg Mupirocin (Bactroban Ointment (For Decolonization) -) 1 applic NS BID [facility] Stop: 06/06/17 21:59 Last Admin: 06/06/17 10:11 Dose: 1 applic Ondansetron HCl (Zofran Injection) 4 mg IVPUSH Q6H PRN PRN Reason: NAUSEA AND/OR VOMITING Tramadol HCl (Ultram -) 50 mg PO Q6H PRN PRN Reason: PAIN Last Admin: 06/04/17 20:57 Dose: 50 mg - Objective Vital Signs: Vital Signs Temperature 99.0 F 06/06/17 14:00 Pulse Rate 77 06/06/17 18:25 Respiratory Rate 14 06/06/17 18:25 Blood Pressure 128/68 06/06/17 14:00 O2 Sat by Pulse Oximetry (%) 93 L 06/06/17 18:25 Constitutional: Yes: No Distress HENT: Yes: Atraumatic Neck: Yes: Supple Cardiovascular: Yes: Regular Rate and Rhythm Respiratory: Yes: CTA Bilaterally Gastrointestinal: Yes: Normal Bowel Sounds Extremities: Yes: WNL Neurological: Yes: Alert, Oriented Labs: CBC, BMP 06/06/17 05:00 06/06/17 05:00 INR, PTT INR 1.16 (0.82-1.09) H 06/04/17 05:15 Problem List - Problems (1) Pneumonia Assessment/Plan: on iv abx has chest tube vats couldnt do as pt desat Code(s): J18.9 - PNEUMONIA, UNSPECIFIED ORGANISM Qualifiers: Pneumonia type: due to unspecified organism Laterality: bilateral Lung location: unspecified part of lung Qualified Code(s): J18.9 - Pneumonia, unspecified organism (2) Fever Code(s): R50.9 - FEVER, UNSPECIFIED (3) Leukocytosis Code(s): D72.829 - ELEVATED WHITE BLOOD CELL COUNT, UNSPECIFIED (4) Pleural effusion associated with pulmonary infection Code(s): J18.9 - PNEUMONIA, UNSPECIFIED ORGANISM; J91.8 - PLEURAL EFFUSION IN OTHER CONDITIONS CLASSIFIED ELSEWHERE (5) Sepsis Code(s): A41.9 - SEPSIS, UNSPECIFIED ORGANISM
[2017-06-06] MEDS: PROPOFOL 1,000,000 MCG/100 ML VIAL IVPB SCH (19:30)
[2017-06-06 20:29] LABS: ARTERIAL BLD GAS O2 SATURATION 93.1 % (90-98.9); ARTERIAL BLOOD GAS BASE EXCESS 4.9 meq/l (-2-2); ARTERIAL BLOOD GAS PO2 71.4 mmHg (80-100); ARTERIAL BLOOD GAS pH 7.37 (7.35-7.45)
[2017-06-06 20:39] LABS: LPM/O2% 80; PT. ON O2? YES; VENT RATE 14; VT/PRESS 400
[2017-06-06 20:40] LABS: MECH. VENT. VENTILATOR
[2017-06-06] MEDS: CHLORHEXIDINE GLUCONATE 4% CLEANSER FOR DECOLONIZATION TP SCH (22:08)
[2017-06-07] MEDS ORDERED: fentaNYL CITRATE 250 MCG/5 ML VIAL ONE (06:02)
[2017-06-07] MEDS ORDERED: FENTANYL INJECTION 500 MCG in DEXTROSE 5%-WATER - 90 ML IVPB SCH (06:06)
[2017-06-07 06:10] LABS: BASO % 0.3 % (0-2.0); EOS % 0.1 % (0-4.5); MCH 30.8 pg (25.7-33.7); MCHC 33.2 g/dl (32.0-35.9); MEAN CELL VOLUME 92.9 fl (80-96); MEAN PLT VOLUME 8.5 fl (7.5-11.1); NEUT % 89.7 % (42.8-82.8); PLATELET COUNT 269 K/MM3 (134-434); RDW 12.7 % (11.9-15.9); WHITE BLOOD COUNT 15.1 K/mm3 (4.0-10.0)
[2017-06-07] MEDS: FENTANYL INJECTION 500 MCG in DEXTROSE 5%-WATER - 90 ML IVPB SCH ×4 (06:23→11:20)
[2017-06-07 07:18] LABS: ANION GAP 5 (8-16); CALCIUM 7.5 mg/dL (8.5-10.1); CO2 30 mmol/L (21-32); CREATININE 0.9 mg/dL (0.7-1.3); GLUCOSE,RANDOM 126 mg/dL (74-106); PHOSPHOROUS 6.1 mg/dL (2.5-4.9)
[2017-06-07 07:33] LABS: MAGNESIUM 2.4 mg/dL (1.8-2.4)
[2017-06-07 07:42] LABS: ARTERIAL BLD GAS O2 SATURATION 98.9 % (90-98.9); ARTERIAL BLOOD GAS BASE EXCESS 3.9 meq/l (-2-2); ARTERIAL BLOOD GAS HCO3 28.9 meq/L (22-26)
[2017-06-07 07:43] LABS: ART PUNCT SITE ARTERIAL LINE; LPM/O2% 80; MECH. VENT. YES; PT. ON O2? YES; TYPE OF O2 VENT; VT/PRESS 400
[2017-06-07 07:44] LABS: VENT RATE 18
[2017-06-07] MEDS: PROPOFOL 1,000,000 MCG/100 ML VIAL IVPB SCH ×2 (08:38→11:20)
[2017-06-07] MEDS: CEFTRIAXONE 2 GM in DEXTROSE 5%-WATER - 100 ML IVPB SCH (10:37)
--- NOTE | 2017-06-07 13:11 | PN ---
Teaching Attending Note Name of Resident: Heather Lutz ATTENDING PHYSICIAN STATEMENT I saw and evaluated the patient. I reviewed the resident's note and discussed the case with the resident. I agree with the resident's findings and plan as documented. SUBJECTIVE: Pt seen and examined in the ICU. Events noted, remained intubated overnight. Oxygenation improved. Tolerated spontaneous breathing trials and subsequently intubated during rounds. OBJECTIVE: Last Vital Signs Temp Pulse Resp BP Pulse Ox 98.3 F 58 L 22 113/58 98 06/07/17 10:00 06/07/17 10:19 06/07/17 11:37 06/07/17 10:00 06/07/17 10:20 Intake & Output 06/04/17 06/05/17 06/06/17 06/07/17 23:59 23:59 23:59 23:59 Intake Total 1350 1730 1198 1155 Output Total 2930 2430 2215 880 Balance -1580 -700 -1017 275 Weight 238 lb 14.4 oz 239 lb 6.4 oz 238 lb 3 oz Gen: extubated Heart: RRR Lung: decreased breath sounds at the bases Abd: soft, nontender Ext: no edema Chest tubes: serous drainage, no air leaks CBC, BMP 06/07/17 05:00 06/07/17 05:00 Active Medications Acetaminophen (Tylenol -) 650 mg PO Q6H PRN PRN Reason: FEVER OR PAIN Last Admin: 06/06/17 00:37 Dose: 650 mg Albuterol/Ipratropium (Duoneb -) 1 amp NEB Q4H PRN Chlorhexidine Gluconate (Hibiclens For Decolonization -) 1 applic TP HS [facility] Last Admin: 06/06/17 22:08 Dose: 1 applic Hydromorphone HCl (Dilaudid Injection -) 0.5 mg IVPUSH [id number] PRN PRN Reason: PAIN Ceftriaxone Sodium 2 gm/ (Dextrose) 100 mls @ 200 mls/hr IVPB DAILY [facility] Last Admin: 06/07/17 10:37 Dose: 200 mls/hr Propofol (Diprivan -) 1,000,000 mcg in 100 mls @ 9.773 mls/hr IVPB TITR ROXANE; 15 MCG/KG/MIN PRN Reason: Protocol Last Admin: 06/07/17 08:38 Dose: 50 mcg/kg/min, 32.577 mls/hr Sodium Chloride (Normal Saline -) 1,000 mls @ 125 mls/hr IV ASDIR ROXANE Last Admin: 06/06/17 19:15 Dose: 125 mls/hr Fentanyl 500 mcg/ Dextrose 100 mls @ 10 mls/hr IVPB TITR ROXANE; 50 MCG/HR PRN Reason: Protocol Last Admin: 06/07/17 06:26 Dose: 10 mls/hr Ibuprofen (Motrin -) 400 mg PO Q6H PRN PRN Reason: PAIN Last Admin: 06/05/17 09:59 Dose: 400 mg Ondansetron HCl (Zofran Injection) 4 mg IVPUSH Q6H PRN PRN Reason: NAUSEA AND/OR VOMITING Tramadol HCl (Ultram -) 50 mg PO Q6H PRN PRN Reason: PAIN Last Admin: 06/04/17 20:57 Dose: 50 mg ASSESSMENT AND PLAN: Acute Hypoxic Respiratory Failure Pneumonia Pleural Effusions - pt extubated - continue antibiotics - continue chest tubes to low wall suction - monitor chest tube output - daily CXRs - O2 to keep SpO2 >90% - pain control - DVT prophylaxis Problem List - Problems (1) Pneumonia Code(s): J18.9 - PNEUMONIA, UNSPECIFIED ORGANISM Qualifiers: Pneumonia type: due to unspecified organism Laterality: bilateral Lung location: unspecified part of lung Qualified Code(s): J18.9 - Pneumonia, unspecified organism
--- NOTE | 2017-06-07 14:26 | PN ---
Physical Exam: SUBJECTIVE: Patient seen and examined at bedside. 24 hr events -R VATS unable to be done, was bronched, pt was desat into 80's, pt was intubated and sedated(06/06) -Low temps overnight 99F -BAL cx and cytology sent Today -Pt extubated, off propofol -Once awake, pt on clear liquid diet- will advance -Family at bedside OBJECTIVE: Vital Signs Period Temp Pulse Resp BP Sys/Novak Pulse Ox Last 24 Hr 98 F-99.0 F 55-103 14-26 105-181/58-92 92-100 GENERAL: The patient is extubated, lethargic off sedation HEAD: Normal with no signs of trauma. EYES: PERRL, extraocular movements intact, sclera anicteric, conjunctiva clear. ENT: Ears normal, nares patent, oropharynx clear without exudates, moist mucous membranes. NECK: Trachea midline, supple. LUNGS: Breath sounds equal, clear to auscultation bilaterally, no wheezes, no crackles, no accessory muscle use. HEART: Regular rate and rhythm, S1, S2 without murmur, rub or gallop. ABDOMEN: Soft, nontender, nondistended, normoactive bowel sounds, no guarding EXTREMITIES: 2+ posterior tibial pulses, warm, well-perfused, no edema. NEUROLOGICAL: unable to assess as pt lethargic, coming off sedation Laboratory Results - last 24 hr 06/05/17 06/06/17 06/06/17 05:00 16:56 20:00 WBC RBC Hgb Hct MCV MCH MCHC RDW Plt Count MPV Neutrophils % Lymphocytes % Monocytes % Eosinophils % Basophils % Anticoagulation Therapy Y Puncture Site Y Y ABG pH 7.38 7.37 ABG pCO2 at Pt Temp 35.9 54.5 H D ABG pO2 at Pt Temp 38.8 L* 71.4 L D ABG HCO3 20.6 L 31.0 H ABG O2 Sat (Measured) 67.0 L* 93.1 ABG O2 Content 8.7 L* 17.0 ABG Base Excess -3.6 L 4.9 H Sunil Test Y Y O2 Delivery Device Y Oxygen Flow Rate Y 80 Vent Mode Y Vent Rate Y 14 Mechanical Rate Y Ventilator PEEP 10.0 Pressure Support Vent Y 400 Sodium Potassium Chloride Carbon Dioxide Anion Gap BUN Creatinine Random Glucose Calcium Phosphorus Magnesium HASEEB Screen Negative 06/07/17 06/07/17 06/07/17 05:00 05:00 07:26 WBC 15.1 H D RBC 3.97 L Hgb 12.3 Hct 36.9 MCV 92.9 MCH 30.8 MCHC 33.2 RDW 12.7 Plt Count 269 MPV 8.5 Neutrophils % 89.7 H D Lymphocytes % 6.2 L D Monocytes % 3.7 L Eosinophils % 0.1 D Basophils % 0.3 Anticoagulation Therapy Y Puncture Site Arterial line ABG pH 7.40 ABG pCO2 at Pt Temp 47.6 H ABG pO2 at Pt Temp 152.0 H* ABG HCO3 28.9 H ABG O2 Sat (Measured) 98.9 ABG O2 Content 17.0 ABG Base Excess 3.9 H Sunil Test Not applicable O2 Delivery Device Vent Oxygen Flow Rate 80 Vent Mode A/c Vent Rate 18 Mechanical Rate Yes PEEP 10.0 Pressure Support Vent 400 Sodium 135 L Potassium 5.3 H D Chloride 100 Carbon Dioxide 30 Anion Gap 5 L BUN 16 D Creatinine 0.9 Random Glucose 126 H D Calcium 7.5 L Phosphorus 6.1 H D Magnesium 2.4 HASEEB Screen Active Medications Generic Name Dose Route Start Last Admin Trade Name Freq PRN Reason Stop Dose Admin Acetaminophen 650 mg 06/01/17 18:50 06/06/17 00:37 Tylenol - PO 650 mg Q6H PRN Administration FEVER OR PAIN Albuterol/Ipratropium 1 amp 06/01/17 18:50 Duoneb - NEB Q4H PRN Chlorhexidine Gluconate 1 applic 06/01/17 22:00 06/06/17 22:08 Hibiclens For Decolonization - TP 1 applic HS ROXANE Administration Hydromorphone HCl 0.5 mg 06/06/17 18:39 Dilaudid Injection - IVPUSH [id number] PRN PAIN Ceftriaxone Sodium 2 gm/ 100 mls @ 200 mls/hr 06/02/17 10:00 06/07/17 10:37 Dextrose IVPB 200 mls/hr DAILY ROXANE Administration Fentanyl 500 mcg/ Dextrose 100 mls @ 10 mls/hr 06/07/17 06:30 06/07/17 11:20 IVPB 10 mls/hr TITR ROXANE Administration Protocol 50 MCG/HR Ibuprofen 400 mg 06/04/17 18:03 12/05/17 09:59 Motrin - PO 400 mg Q6H PRN Administration PAIN Ondansetron HCl 4 mg 06/06/17 18:39 Zofran Injection IVPUSH Q6H PRN NAUSEA AND/OR VOMITING Tramadol HCl 50 mg 06/04/17 19:15 06/04/17 20:57 Ultram - PO 50 mg Q6H PRN Administration PAIN ASSESSMENT/PLAN: 37 y/o M PMH 1ppd smoker (30 pack years), who initially came to the ED for R flank pain x 2 days, which was worse on deep inspiration and a/w fever and chills. Pt later found to have loculated R pleural effusion and L pleural effusion, which he is being managed for in ICU. #PULMONARY -Possible viral etiology, quick clinical resolution, despite pt's non-toxic appearance -Pleural fluid analysis suggestive of exudative fluid -CXR: has improved -Unable to do VATS as pt desat into 80s -Extubated today (06/07) -s/p L pigtail chest tube (06/04) - low wall suction -s/p R chest tube (06/02)- low wall suction -s/p L chest tube (06/07)- low wall suction -Continue ceftriaxone and azithromycin -Nebs 1 amp q4h PRN -Tylenol 650 mg PO q6h PRN for pain -Prelim AFB (-) -SULLY: (-) -F/u pleural fluid cytology report- still pending -F/u AFB Nucleic Acid Amplification test as pt can have -cx but + load #DVT Prophylaxis SCD's #F/E/N Currently not on IVF Will continue to follow electrolytes clear liquid diet, will advance #Dispo Continued ICU management Visit type - Emergency Visit Emergency Visit: No - New Patient This patient is new to me today: No - Critical Care Critical Care patient: Yes Total Critical Care Time (in minutes): 31 Critical Care Statement: The care of this patient involved high complexity decision making to prevent further life threatening deterioration of the patient 's condition and/or to evaluate & treat vital organ system(s) failure or risk of failure.
--- NOTE | 2017-06-07 19:18 | PN ---
Progress Note, Physician History of Present Illness: extubated on face mask says feeling good - Current Medication List Current Medications: Active Medications Acetaminophen (Tylenol -) 650 mg PO Q6H PRN PRN Reason: FEVER OR PAIN Last Admin: 06/06/17 00:37 Dose: 650 mg Albuterol/Ipratropium (Duoneb -) 1 amp NEB Q4H PRN Chlorhexidine Gluconate (Hibiclens For Decolonization -) 1 applic TP HS [facility] Last Admin: 06/06/17 22:08 Dose: 1 applic Hydromorphone HCl (Dilaudid Injection -) 0.5 mg IVPUSH [id number] PRN PRN Reason: PAIN Ceftriaxone Sodium 2 gm/ (Dextrose) 100 mls @ 200 mls/hr IVPB DAILY [facility] Last Admin: 06/07/17 10:37 Dose: 200 mls/hr Fentanyl 500 mcg/ Dextrose 100 mls @ 10 mls/hr IVPB TITR ROXANE; 50 MCG/HR PRN Reason: Protocol Last Admin: 06/07/17 11:20 Dose: 10 mls/hr Ibuprofen (Motrin -) 400 mg PO Q6H PRN PRN Reason: PAIN Last Admin: 06/05/17 09:59 Dose: 400 mg Mupirocin (Bactroban 2% Ointment -) 1 applic TP BID [facility] Ondansetron HCl (Zofran Injection) 4 mg IVPUSH Q6H PRN PRN Reason: NAUSEA AND/OR VOMITING Tramadol HCl (Ultram -) 50 mg PO Q6H PRN PRN Reason: PAIN Last Admin: 06/04/17 20:57 Dose: 50 mg - Objective Vital Signs: Vital Signs Temperature 98.8 F 06/07/17 18:00 Pulse Rate 80 06/07/17 18:00 Respiratory Rate 20 06/07/17 18:00 Blood Pressure 130/60 06/07/17 18:00 O2 Sat by Pulse Oximetry (%) 96 06/07/17 18:00 Constitutional: Yes: No Distress HENT: Yes: Atraumatic Neck: Yes: Supple Cardiovascular: Yes: Regular Rate and Rhythm Respiratory: Yes: CTA Bilaterally Gastrointestinal: Yes: Normal Bowel Sounds Extremities: Yes: WNL Neurological: Yes: Alert, Oriented Labs: CBC, BMP 06/07/17 05:00 06/07/17 05:00 INR, PTT INR 1.16 (0.82-1.09) H 06/04/17 05:15 Problem List - Problems (1) Pneumonia Assessment/Plan: on iv abx has chest tube pt extubated on face mask Code(s): J18.9 - PNEUMONIA, UNSPECIFIED ORGANISM Qualifiers: Pneumonia type: due to unspecified organism Laterality: bilateral Lung location: unspecified part of lung Qualified Code(s): J18.9 - Pneumonia, unspecified organism (2) Fever Assessment/Plan: afebrile Code(s): R50.9 - FEVER, UNSPECIFIED (3) Leukocytosis Assessment/Plan: wbc still elevated Code(s): D72.829 - ELEVATED WHITE BLOOD CELL COUNT, UNSPECIFIED (4) Pleural effusion associated with pulmonary infection Code(s): J18.9 - PNEUMONIA, UNSPECIFIED ORGANISM; J91.8 - PLEURAL EFFUSION IN OTHER CONDITIONS CLASSIFIED ELSEWHERE (5) Sepsis Code(s): A41.9 - SEPSIS, UNSPECIFIED ORGANISM
[2017-06-07] MEDS: MUPIROCIN 2% TOPICAL OINTMENT 22 GM TUBE TP SCH (21:11)
[2017-06-07] MEDS: CHLORHEXIDINE GLUCONATE 4% CLEANSER FOR DECOLONIZATION TP SCH (21:11)
[2017-06-08 06:18] LABS: BASO % 0.9 % (0-2.0); EOS % 3.6 % (0-4.5); MCH 31.8 pg (25.7-33.7); MEAN CELL VOLUME 93.6 fl (80-96); MEAN PLT VOLUME 8.2 fl (7.5-11.1); NEUT % 68.8 % (42.8-82.8); PLATELET COUNT 265 K/MM3 (134-434); RDW 12.7 % (11.9-15.9); WHITE BLOOD COUNT 9.3 K/mm3 (4.0-10.0)
[2017-06-08 06:42] LABS: CALCIUM 7.9 mg/dL (8.5-10.1); CO2 30 mmol/L (21-32); GLUCOSE,RANDOM 122 mg/dL (74-106)
[2017-06-08 06:59] LABS: ANION GAP 6 (8-16); MAGNESIUM 2.2 mg/dL (1.8-2.4); PHOSPHOROUS 3.8 mg/dL (2.5-4.9)
--- NOTE | 2017-06-08 08:57 | PN ---
Physical Exam: SUBJECTIVE: Patient seen and examined at bedside. 24 hr events -no acute events overnight -afebrile -all chest tubes draining well Today -afebrile OBJECTIVE: Vital Signs Period Temp Pulse Resp BP Sys/Novak Pulse Ox Last 24 Hr 98.3 F-98.8 F 55-80 14-26 103-155/52-81 96-100 GENERAL: The patient is awake, alert, and fully oriented, in no acute distress. HEAD: Normal with no signs of trauma. EYES: PERRL, extraocular movements intact, sclera anicteric, conjunctiva clear. No ptosis. ENT: Ears normal, nares patent, oropharynx clear without exudates, moist mucous membranes. NECK: Trachea midline, full range of motion, supple. LUNGS: Breath sounds equal, clear to auscultation bilaterally, no wheezes, no crackles, no accessory muscle use. HEART: Regular rate and rhythm, S1, S2 without murmur, rub or gallop. ABDOMEN: Soft, nontender, nondistended, normoactive bowel sounds, no guarding, no rebound, no hepatosplenomegaly, no masses. EXTREMITIES: 2+ pulses, warm, well-perfused, no edema. NEUROLOGICAL: Cranial nerves II through XII grossly intact. Normal speech, gait not observed. PSYCH: Normal mood, normal affect. SKIN: Warm, dry, normal turgor, no rashes or lesions noted Laboratory Results - last 24 hr 06/08/17 06/08/17 05:55 05:55 WBC 9.3 D RBC 3.65 L Hgb 11.6 L Hct 34.2 L MCV 93.6 MCH 31.8 MCHC 34.0 RDW 12.7 Plt Count 265 MPV 8.2 Neutrophils % 68.8 D Lymphocytes % 19.0 D Monocytes % 7.7 D Eosinophils % 3.6 D Basophils % 0.9 Sodium 137 Potassium 3.9 D Chloride 101 Carbon Dioxide 30 Anion Gap 6 L BUN 12 D Creatinine 1.0 Random Glucose 122 H Calcium 7.9 L Phosphorus 3.8 D Magnesium 2.2 Active Medications Generic Name Dose Route Start Last Admin Trade Name Freq PRN Reason Stop Dose Admin Acetaminophen 650 mg 06/01/17 18:50 06/06/17 00:37 Tylenol - PO 650 mg Q6H PRN Administration FEVER OR PAIN Albuterol/Ipratropium 1 amp 06/01/17 18:50 Duoneb - NEB Q4H PRN Chlorhexidine Gluconate 1 applic 06/01/17 22:00 06/07/17 21:11 Hibiclens For Decolonization - TP 1 applic HS ROXANE Administration Hydromorphone HCl 0.5 mg 06/06/17 18:39 Dilaudid Injection - IVPUSH [id number] PRN PAIN Ceftriaxone Sodium 2 gm/ 100 mls @ 200 mls/hr 06/02/17 10:00 06/07/17 10:37 Dextrose IVPB 200 mls/hr DAILY ROXANE Administration Ibuprofen 400 mg 06/04/17 18:03 06/05/17 09:59 Motrin - PO 400 mg Q6H PRN Administration PAIN Mupirocin 1 applic 06/07/17 22:00 06/07/17 21:11 Bactroban 2% Ointment - TP 1 applic BID ROXANE Administration Ondansetron HCl 4 mg 06/06/17 18:39 Zofran Injection IVPUSH Q6H PRN NAUSEA AND/OR VOMITING Tramadol HCl 50 mg 06/04/17 19:15 06/04/17 20:57 Ultram - PO 50 mg Q6H PRN Administration PAIN ASSESSMENT/PLAN:
--- NOTE | 2017-06-08 09:23 | PN ---
Progress Note (short form) - Note Progress Note: Thoracic Progress Note: ALI and atelectasis AFTER intubation. Now improved. Will not need or have surgery. Can pull one left side tube today. If drainage low, can pull other left side over weekend (<150/day?). Otherwise, wait for oxygenation to improve and OOB with PT. Dr. Mercedes covering me this afternoon and over weekend.
[2017-06-08] MEDS ORDERED: DOCUSATE SODIUM 100 MG CAPSULE (FP) PO PRN ×2 (09:48→18:38)
[2017-06-08] MEDS ORDERED: PT OWN MED DRAWER 7, Y5N ONE (10:59)
[2017-06-08] MEDS: MUPIROCIN 2% TOPICAL OINTMENT 22 GM TUBE TP SCH ×2 (11:00→22:53)
[2017-06-08] MEDS: CEFTRIAXONE 2 GM in DEXTROSE 5%-WATER - 100 ML IVPB SCH (11:01)
[2017-06-08] MEDS: HYDROmorphone HCL CARPU-JECT 2 MG/1 ML DISP.SYRIN IVPUSH PRN ×2 (11:01→16:07)
--- NOTE | 2017-06-08 11:10 | PN ---
Progress Note, Physician History of Present Illness: Events noted. Attempted VATs but apparently did not tolerate intubation and was desaturating. Pt now extubated. Feels well. Denies any SOB, chest pain, fever or chills. - Current Medication List Current Medications: Active Medications Acetaminophen (Tylenol -) 650 mg PO Q6H PRN PRN Reason: FEVER OR PAIN Last Admin: 06/06/17 00:37 Dose: 650 mg Albuterol/Ipratropium (Duoneb -) 1 amp NEB Q4H PRN Chlorhexidine Gluconate (Hibiclens For Decolonization -) 1 applic TP HS [facility] Last Admin: 06/07/17 21:11 Dose: 1 applic Docusate Sodium (Colace -) 100 mg PO Q8H PRN PRN Reason: CONSTIPATION Hydromorphone HCl (Dilaudid Injection -) 1 mg IVPUSH Q4H PRN PRN Reason: PAIN Last Admin: 06/08/17 11:01 Dose: 1 mg Ceftriaxone Sodium 2 gm/ (Dextrose) 100 mls @ 200 mls/hr IVPB DAILY [facility] Last Admin: 06/08/17 11:01 Dose: 200 mls/hr Ibuprofen (Motrin -) 400 mg PO Q6H PRN PRN Reason: PAIN Last Admin: 06/05/17 09:59 Dose: 400 mg Mupirocin (Bactroban 2% Ointment -) 1 applic TP BID [facility] Last Admin: 06/08/17 11:00 Dose: 1 applic Ondansetron HCl (Zofran Injection) 4 mg IVPUSH Q6H PRN PRN Reason: NAUSEA AND/OR VOMITING Tramadol HCl (Ultram -) 50 mg PO Q6H PRN PRN Reason: PAIN Last Admin: 06/04/17 20:57 Dose: 50 mg - Objective Vital Signs: Vital Signs Temperature 98.8 F 06/08/17 10:00 Pulse Rate 67 06/08/17 10:00 Respiratory Rate 20 06/08/17 10:00 Blood Pressure 123/64 06/08/17 10:00 O2 Sat by Pulse Oximetry (%) 96 06/08/17 08:00 Constitutional: Yes: No Distress, Calm HENT: Yes: Atraumatic Neck: Yes: Supple Cardiovascular: Yes: Regular Rate and Rhythm Respiratory: Yes: Other (b/l chest tubes) Gastrointestinal: Yes: Normal Bowel Sounds, Soft Genitourinary: Yes: WNL Musculoskeletal: Yes: WNL Extremities: Yes: WNL Neurological: Yes: Alert, Oriented Labs: CBC, BMP 06/08/17 05:55 06/08/17 05:55 INR, PTT INR 1.16 (0.82-1.09) H 06/04/17 05:15 Problem List - Problems (1) Leukocytosis Code(s): D72.829 - ELEVATED WHITE BLOOD CELL COUNT, UNSPECIFIED (2) Fever Code(s): R50.9 - FEVER, UNSPECIFIED (3) Pneumonia Code(s): J18.9 - PNEUMONIA, UNSPECIFIED ORGANISM Qualifiers: Pneumonia type: due to unspecified organism Laterality: bilateral Lung location: unspecified part of lung Qualified Code(s): J18.9 - Pneumonia, unspecified organism (4) Pleural effusion associated with pulmonary infection Code(s): J18.9 - PNEUMONIA, UNSPECIFIED ORGANISM; J91.8 - PLEURAL EFFUSION IN OTHER CONDITIONS CLASSIFIED ELSEWHERE (5) Sepsis Code(s): A41.9 - SEPSIS, UNSPECIFIED ORGANISM Assessment/Plan Pt admitted with shortness of breath and severe pleuritic chest pain, fever, and leukocytosis Large pleural effusions s/p thoracentesis/catheter could not tolerate VATs procedure - now extubated fever/leukocytosis resolved f/u pending cultures cont IV antibiotics continue monitor closely cc time: 40 min
--- NOTE | 2017-06-08 12:14 | PN ---
Teaching Attending Note Name of Resident: Heather Lutz ATTENDING PHYSICIAN STATEMENT I saw and evaluated the patient. I reviewed the resident's note and discussed the case with the resident. I agree with the resident's findings and plan as documented. SUBJECTIVE: Patient seen and examined in the ICU. Awake and alert. Some mild chest discomfort at the CT sites. CXR: No PTX, bilateral increased effusions/congestion OBJECTIVE: Intake & Output 06/05/17 06/06/17 06/07/17 06/08/17 23:59 23:59 23:59 23:59 Intake Total 1730 1198 2555 Output Total 2430 2215 1940 630 Balance -700 -1017 615 -630 Weight 238 lb 14.4 oz 239 lb 6.4 oz 238 lb 3 oz 239 lb 9.6 oz Last Vital Signs Temp Pulse Resp BP Pulse Ox 98.8 F 67 20 123/64 94 L 06/08/17 10:00 06/08/17 10:00 06/08/17 10:00 06/08/17 10:00 06/08/17 11:31 Active Medications Acetaminophen (Tylenol -) 650 mg PO Q6H PRN PRN Reason: FEVER OR PAIN Last Admin: 06/06/17 00:37 Dose: 650 mg Albuterol/Ipratropium (Duoneb -) 1 amp NEB Q4H PRN Chlorhexidine Gluconate (Hibiclens For Decolonization -) 1 applic TP HS [facility] Last Admin: 06/07/17 21:11 Dose: 1 applic Docusate Sodium (Colace -) 100 mg PO Q8H PRN PRN Reason: CONSTIPATION Hydromorphone HCl (Dilaudid Injection -) 1 mg IVPUSH Q4H PRN PRN Reason: PAIN Last Admin: 06/08/17 11:01 Dose: 1 mg Ceftriaxone Sodium 2 gm/ (Dextrose) 100 mls @ 200 mls/hr IVPB DAILY [facility] Last Admin: 06/08/17 11:01 Dose: 200 mls/hr Ibuprofen (Motrin -) 400 mg PO Q6H PRN PRN Reason: PAIN Last Admin: 06/05/17 09:59 Dose: 400 mg Mupirocin (Bactroban 2% Ointment -) 1 applic TP BID [facility] Last Admin: 06/08/17 11:00 Dose: 1 applic Ondansetron HCl (Zofran Injection) 4 mg IVPUSH Q6H PRN PRN Reason: NAUSEA AND/OR VOMITING Tramadol HCl (Ultram -) 50 mg PO Q6H PRN PRN Reason: PAIN Last Admin: 06/04/17 20:57 Dose: 50 mg Gen: Awake and alert, mildly tachypneic at rest Heart: RRR Lung: decreased breath sounds at the bases, scattered rhonchi Abd: soft, nontender Ext: no edema Chest tubes: serous drainage, no air leaks Laboratory Results - last 24 hr 06/08/17 06/08/17 05:55 05:55 WBC 9.3 D RBC 3.65 L Hgb 11.6 L Hct 34.2 L MCV 93.6 MCH 31.8 MCHC 34.0 RDW 12.7 Plt Count 265 MPV 8.2 Neutrophils % 68.8 D Lymphocytes % 19.0 D Monocytes % 7.7 D Eosinophils % 3.6 D Basophils % 0.9 Sodium 137 Potassium 3.9 D Chloride 101 Carbon Dioxide 30 Anion Gap 6 L BUN 12 D Creatinine 1.0 Random Glucose 122 H Calcium 7.9 L Phosphorus 3.8 D Magnesium 2.2 Problem List - Problems (1) Pneumonia Code(s): J18.9 - PNEUMONIA, UNSPECIFIED ORGANISM Qualifiers: Pneumonia type: due to unspecified organism Laterality: bilateral Lung location: unspecified part of lung Qualified Code(s): J18.9 - Pneumonia, unspecified organism ASSESSMENT AND PLAN: Acute Hypoxic Respiratory Failure Pneumonia Pleural Effusions - ABX per ID - Will remove 1 CT from the left (larger CT) - continue chest tubes to low wall suction - monitor chest tube output - daily CXRs - O2 to keep SpO2 >90% - pain control - DVT prophylaxis - Isolation Dr Saldana Critical care time spent in reviewing chart, evaluating patient and formulating plan - 40 minutes.
--- NOTE | 2017-06-08 14:30 | PN ---
Physical Exam: SUBJECTIVE: Patient seen and examined at bedside. 24 hr events -pt without complaints -sat well on venti mask 50% Today -afebrile -denies WHITE, fever, chills, SOB, chest pain -off venti mask this AM, comfortably eating breakfast -chest tubes draining serosanguineous fluid, output good -to pull L large chest tube today OBJECTIVE: Drainage: L anterior: 200 ml L posterior: 20 ml R tube: 20ml Vital Signs Period Temp Pulse Resp BP Sys/Novak Pulse Ox Last 24 Hr 98.5 F-98.8 F 55-80 15-20 103-130/52-67 94-96 GENERAL: The patient is awake, alert, and fully oriented, in no acute distress. HEAD: Normal with no signs of trauma. EYES: PERRL, extraocular movements intact, sclera anicteric, conjunctiva clear. No ptosis. NECK: Trachea midline, supple. LUNGS: Breath sounds equal, clear to auscultation bilaterally, no wheezes, no crackles, no accessory muscle use. HEART: Regular rate and rhythm, S1, S2 without murmur, rub or gallop. ABDOMEN: Soft, nontender, nondistended, normoactive bowel sounds, no guarding, no rebound, no hepatosplenomegaly, no masses. EXTREMITIES: 2+ posterior tibial pulses, warm, well-perfused, no edema. NEUROLOGICAL: Cranial nerves II through XII grossly intact. Laboratory Results - last 24 hr 06/08/17 06/08/17 05:55 05:55 WBC 9.3 D RBC 3.65 L Hgb 11.6 L Hct 34.2 L MCV 93.6 MCH 31.8 MCHC 34.0 RDW 12.7 Plt Count 265 MPV 8.2 Neutrophils % 68.8 D Lymphocytes % 19.0 D Monocytes % 7.7 D Eosinophils % 3.6 D Basophils % 0.9 Sodium 137 Potassium 3.9 D Chloride 101 Carbon Dioxide 30 Anion Gap 6 L BUN 12 D Creatinine 1.0 Random Glucose 122 H Calcium 7.9 L Phosphorus 3.8 D Magnesium 2.2 Active Medications Generic Name Dose Route Start Last Admin Trade Name Freq PRN Reason Stop Dose Admin Acetaminophen 650 mg 06/01/17 18:50 06/06/17 00:37 Tylenol - PO 650 mg Q6H PRN Administration FEVER OR PAIN Albuterol/Ipratropium 1 amp 06/01/17 18:50 Duoneb - NEB Q4H PRN Chlorhexidine Gluconate 1 applic 06/01/17 22:00 06/07/17 21:11 Hibiclens For Decolonization - TP 1 applic HS ROXANE Administration Docusate Sodium 100 mg 06/08/17 09:48 Colace - PO Q8H PRN CONSTIPATION Hydromorphone HCl 1 mg 06/08/17 09:48 06/08/17 11:01 Dilaudid Injection - IVPUSH 1 mg Q4H PRN Administration PAIN Ceftriaxone Sodium 2 gm/ 100 mls @ 200 mls/hr 06/02/17 10:00 06/08/17 11:01 Dextrose IVPB 200 mls/hr DAILY ROXANE Administration Ibuprofen 400 mg 06/04/17 18:03 06/05/17 09:59 Motrin - PO 400 mg Q6H PRN Administration PAIN Mupirocin 1 applic 06/07/17 22:00 06/08/17 11:00 Bactroban 2% Ointment - TP 1 applic BID ROXANE Administration Ondansetron HCl 4 mg 06/06/17 18:39 Zofran Injection IVPUSH Q6H PRN NAUSEA AND/OR VOMITING Tramadol HCl 50 mg 06/04/17 19:15 06/04/17 20:57 Ultram - PO 50 mg Q6H PRN Administration PAIN ASSESSMENT/PLAN: 37 y/o M PMH 1ppd smoker (30 pack years), who initially came to the ED for R flank pain x 2 days, which was worse on deep inspiration and a/w fever and chills. Pt later found to have loculated R pleural effusion and L pleural effusion, which he is being managed for in ICU. #PULMONARY -Possible viral etiology, quick clinical resolution, despite pt's non-toxic appearance -Pleural fluid analysis suggestive of exudative fluid -CXR: worse today, increased congestion -Unable to do VATS as pt desat into 80s -Extubated (06/07) -s/p L pigtail chest tube (06/04) - low wall suction -s/p R chest tube (06/02)- low wall suction -s/p L chest tube (06/07)- low wall suction - to be removed today -Continue ceftriaxone and azithromycin -Nebs 1 amp q4h PRN -Tylenol 650 mg PO q6h PRN for pain -Prelim AFB (-) -SULLY: (-) -F/u pleural fluid cytology report- still pending -F/u AFB Nucleic Acid Amplification test as pt can have -cx but + load #DVT Prophylaxis SCD's #F/E/N Currently not on IVF Will continue to follow electrolytes sodium controlled diet #Dispo Continued ICU management Visit type - Emergency Visit Emergency Visit: No - New Patient This patient is new to me today: No - Critical Care Critical Care patient: Yes Total Critical Care Time (in minutes): 32 Critical Care Statement: The care of this patient involved high complexity decision making to prevent further life threatening deterioration of the patient 's condition and/or to evaluate & treat vital organ system(s) failure or risk of failure.
--- NOTE | 2017-06-08 18:34 | PN ---
Progress Note (short form) - Note Progress Note: Pt had left anterior chest tube removed. No complications. Hemodynamically stable. No distress. Alert and oriented. Pt is stable for transfer to Med surg. He will need an isolation room. Case d/w attending.
[2017-06-08] MEDS ORDERED: IBUPROFEN 400 MG TABLET (FP) PO PRN (18:38)
[2017-06-08] MEDS ORDERED: ACETAMINOPHEN 325 MG TABLET (FP) PO PRN (18:38)
[2017-06-08] MEDS ORDERED: ALBUTEROL SO4 2.5/IPRATROPIUM 0.5 INH SOL 3 ML VIAL.NEB. NEB PRN (18:38)
[2017-06-08] MEDS ORDERED: HYDROmorphone HCL CARPU-JECT 2 MG/1 ML DISP.SYRIN IVPUSH PRN (18:38)
[2017-06-08] MEDS ORDERED: ONDANSETRON 4 MG/2 ML VIAL IVPUSH PRN (18:38)
[2017-06-08] MEDS ORDERED: traMADol HCL 50 MG TABLET PO PRN (18:38)
--- NOTE | 2017-06-08 20:58 | PN ---
Progress Note, Physician History of Present Illness: doing well - Current Medication List Current Medications: Active Medications Acetaminophen (Tylenol -) 650 mg PO Q6H PRN PRN Reason: FEVER OR PAIN Albuterol/Ipratropium (Duoneb -) 1 amp NEB Q4H PRN Chlorhexidine Gluconate (Hibiclens For Decolonization -) 1 applic TP HS ROXANE Docusate Sodium (Colace -) 100 mg PO TID PRN PRN Reason: CONSTIPATION Hydromorphone HCl (Dilaudid Injection -) 1 mg IVPUSH Q4H PRN PRN Reason: PAIN Ceftriaxone Sodium 2 gm/ (Dextrose) 100 mls @ 200 mls/hr IVPB DAILY ROXANE Ibuprofen (Motrin -) 400 mg PO Q6H PRN PRN Reason: PAIN Mupirocin (Bactroban 2% Ointment -) 1 applic TP BID ROXANE Ondansetron HCl (Zofran Injection) 4 mg IVPUSH Q6H PRN PRN Reason: NAUSEA AND/OR VOMITING Tramadol HCl (Ultram -) 50 mg PO Q6H PRN PRN Reason: PAIN - Objective Vital Signs: Vital Signs Temperature 98.5 F 06/08/17 17:51 Pulse Rate 65 06/08/17 17:51 Respiratory Rate 21 06/08/17 17:51 Blood Pressure 157/68 06/08/17 17:51 O2 Sat by Pulse Oximetry (%) 96 06/08/17 18:07 Constitutional: Yes: No Distress HENT: Yes: Atraumatic Neck: Yes: Supple Cardiovascular: Yes: Regular Rate and Rhythm Respiratory: Yes: CTA Bilaterally Gastrointestinal: Yes: Normal Bowel Sounds Extremities: Yes: WNL Neurological: Yes: Alert, Oriented Labs: CBC, BMP 06/08/17 05:55 06/08/17 05:55 INR, PTT INR 1.16 (0.82-1.09) H 06/04/17 05:15 Problem List - Problems (1) Pneumonia Assessment/Plan: on iv abx has chest tube doing well transfer to floor Code(s): J18.9 - PNEUMONIA, UNSPECIFIED ORGANISM Qualifiers: Pneumonia type: due to unspecified organism Laterality: bilateral Lung location: unspecified part of lung Qualified Code(s): J18.9 - Pneumonia, unspecified organism (2) Fever Assessment/Plan: afebrile Code(s): R50.9 - FEVER, UNSPECIFIED (3) Leukocytosis Assessment/Plan: wbc still elevated Code(s): D72.829 - ELEVATED WHITE BLOOD CELL COUNT, UNSPECIFIED (4) Pleural effusion associated with pulmonary infection Code(s): J18.9 - PNEUMONIA, UNSPECIFIED ORGANISM; J91.8 - PLEURAL EFFUSION IN OTHER CONDITIONS CLASSIFIED ELSEWHERE (5) Sepsis Code(s): A41.9 - SEPSIS, UNSPECIFIED ORGANISM
[2017-06-08] MEDS ORDERED: CHLORHEXIDINE GLUCONATE 4% CLEANSER FOR DECOLONIZATION TP SCH (22:00)
[2017-06-09 07:17] LABS: BASO % 0.8 % (0-2.0); EOS % 3.3 % (0-4.5); MCH 31.2 pg (25.7-33.7); MCHC 33.7 g/dl (32.0-35.9); MEAN CELL VOLUME 92.5 fl (80-96); MEAN PLT VOLUME 7.7 fl (7.5-11.1); PLATELET COUNT 287 K/MM3 (134-434); RDW 12.7 % (11.9-15.9); WHITE BLOOD COUNT 10.2 K/mm3 (4.0-10.0)
[2017-06-09 07:37] LABS: ANION GAP 6 (8-16); CALCIUM 8.1 mg/dL (8.5-10.1); CO2 32 mmol/L (21-32); CREATININE 0.8 mg/dL (0.7-1.3); GLUCOSE,RANDOM 93 mg/dL (74-106)
[2017-06-09 07:50] LABS: MAGNESIUM 1.9 mg/dL (1.8-2.4); PHOSPHOROUS 3.8 mg/dL (2.5-4.9)
[2017-06-09] MEDS ORDERED: CEFTRIAXONE 2 GM in DEXTROSE 5%-WATER - 100 ML IVPB SCH (10:00)
[2017-06-09] MEDS ORDERED: PT OWN MED DRAWER 7, Y5N ONE (11:14)
[2017-06-09] MEDS: MUPIROCIN 2% TOPICAL OINTMENT 22 GM TUBE TP SCH (11:21)
--- NOTE | 2017-06-09 12:17 | PN ---
Progress Note (short form) - Note Progress Note: PULMONARY Remains on 40% ventimask saturating 93%. +cough. No fevers or chills. Last Vital Signs Temp Pulse Resp BP Pulse Ox 98.2 F 68 20 136/79 97 06/09/17 06:00 06/09/17 06:00 06/09/17 06:00 06/09/17 06:00 06/08/17 21:00 Gen: mildly tachypneic at rest Heart: RRR Lung: decreased breath sounds at the bases Abd: soft, nontender Ext: no edema CBC, BMP 06/09/17 06:30 06/09/17 06:30 Active Medications Acetaminophen (Tylenol -) 650 mg PO Q6H PRN PRN Reason: FEVER OR PAIN Last Admin: 06/09/17 04:40 Dose: 650 mg Albuterol/Ipratropium (Duoneb -) 1 amp NEB Q4H PRN Docusate Sodium (Colace -) 100 mg PO TID PRN PRN Reason: CONSTIPATION Hydromorphone HCl (Dilaudid Injection -) 1 mg IVPUSH Q4H PRN PRN Reason: PAIN Ceftriaxone Sodium 2 gm/ (Dextrose) 100 mls @ 200 mls/hr IVPB DAILY [facility] Ibuprofen (Motrin -) 400 mg PO Q6H PRN PRN Reason: PAIN Last Admin: 06/09/17 06:06 Dose: 400 mg Ondansetron HCl (Zofran Injection) 4 mg IVPUSH Q6H PRN PRN Reason: NAUSEA AND/OR VOMITING Tramadol HCl (Ultram -) 50 mg PO Q6H PRN PRN Reason: PAIN Last Admin: 06/09/17 08:37 Dose: 50 mg A/P Acute Hypoxic Respiratory Failure Pneumonia Pleural Effusions - antibiotics per ID - monitor chest tube outputs - pain control - incentive spirometry - O2 to keep Spo2 >90% - DVT prophylaxis Problem List - Problems (1) Pneumonia Code(s): J18.9 - PNEUMONIA, UNSPECIFIED ORGANISM Qualifiers: Pneumonia type: due to unspecified organism Laterality: bilateral Lung location: unspecified part of lung Qualified Code(s): J18.9 - Pneumonia, unspecified organism
--- NOTE | 2017-06-09 12:58 | PN ---
Progress Note, Physician History of Present Illness: doing well - Current Medication List Current Medications: Active Medications Acetaminophen (Tylenol -) 650 mg PO Q6H PRN PRN Reason: FEVER OR PAIN Last Admin: 06/09/17 04:40 Dose: 650 mg Albuterol/Ipratropium (Duoneb -) 1 amp NEB Q4H PRN Docusate Sodium (Colace -) 100 mg PO TID PRN PRN Reason: CONSTIPATION Hydromorphone HCl (Dilaudid Injection -) 1 mg IVPUSH Q4H PRN PRN Reason: PAIN Ceftriaxone Sodium 2 gm/ (Dextrose) 100 mls @ 200 mls/hr IVPB DAILY ROXANE Ibuprofen (Motrin -) 400 mg PO Q6H PRN PRN Reason: PAIN Last Admin: 06/09/17 06:06 Dose: 400 mg Ondansetron HCl (Zofran Injection) 4 mg IVPUSH Q6H PRN PRN Reason: NAUSEA AND/OR VOMITING Tramadol HCl (Ultram -) 50 mg PO Q6H PRN PRN Reason: PAIN Last Admin: 06/09/17 08:37 Dose: 50 mg - Objective Vital Signs: Vital Signs Temperature 98.2 F 06/09/17 06:00 Pulse Rate 68 06/09/17 06:00 Respiratory Rate 20 06/09/17 06:00 Blood Pressure 136/79 06/09/17 06:00 O2 Sat by Pulse Oximetry (%) 97 06/08/17 21:00 Constitutional: Yes: No Distress HENT: Yes: Atraumatic Cardiovascular: Yes: Regular Rate and Rhythm Respiratory: Yes: Rhonchi, Other (chest tube in place) Gastrointestinal: Yes: Normal Bowel Sounds Extremities: Yes: WNL Neurological: Yes: Alert, Oriented Labs: CBC, BMP 06/09/17 06:30 06/09/17 06:30 INR, PTT INR 1.16 (0.82-1.09) H 06/04/17 05:15 Problem List - Problems (1) Pneumonia Assessment/Plan: on iv abx has chest tube....monitor out put doing well Code(s): J18.9 - PNEUMONIA, UNSPECIFIED ORGANISM Qualifiers: Pneumonia type: due to unspecified organism Laterality: bilateral Lung location: unspecified part of lung Qualified Code(s): J18.9 - Pneumonia, unspecified organism (2) Fever Assessment/Plan: afebrile Code(s): R50.9 - FEVER, UNSPECIFIED (3) Leukocytosis Assessment/Plan: wbc still elevated Code(s): D72.829 - ELEVATED WHITE BLOOD CELL COUNT, UNSPECIFIED (4) Pleural effusion associated with pulmonary infection Code(s): J18.9 - PNEUMONIA, UNSPECIFIED ORGANISM; J91.8 - PLEURAL EFFUSION IN OTHER CONDITIONS CLASSIFIED ELSEWHERE (5) Sepsis Code(s): A41.9 - SEPSIS, UNSPECIFIED ORGANISM
--- NOTE | 2017-06-09 16:25 | PN ---
Progress Note, Physician History of Present Illness: Pt states he feels well. Has cough with deep inhalation but remains afebrile. - Current Medication List Current Medications: Active Medications Acetaminophen (Tylenol -) 650 mg PO Q6H PRN PRN Reason: FEVER OR PAIN Last Admin: 06/09/17 04:40 Dose: 650 mg Albuterol/Ipratropium (Duoneb -) 1 amp NEB Q4H PRN Docusate Sodium (Colace -) 100 mg PO TID PRN PRN Reason: CONSTIPATION Hydromorphone HCl (Dilaudid Injection -) 1 mg IVPUSH Q4H PRN PRN Reason: PAIN Ceftriaxone Sodium 2 gm/ (Dextrose) 100 mls @ 200 mls/hr IVPB DAILY [facility] Last Admin: 06/09/17 13:25 Dose: 200 mls/hr Ibuprofen (Motrin -) 400 mg PO Q6H PRN PRN Reason: PAIN Last Admin: 06/09/17 06:06 Dose: 400 mg Ondansetron HCl (Zofran Injection) 4 mg IVPUSH Q6H PRN PRN Reason: NAUSEA AND/OR VOMITING Tramadol HCl (Ultram -) 50 mg PO Q6H PRN PRN Reason: PAIN Last Admin: 06/09/17 08:37 Dose: 50 mg - Objective Vital Signs: Vital Signs Temperature 98.4 F 06/09/17 14:47 Pulse Rate 78 06/09/17 14:47 Respiratory Rate 18 06/09/17 14:47 Blood Pressure 122/52 06/09/17 14:47 O2 Sat by Pulse Oximetry (%) 97 06/08/17 21:00 Constitutional: Yes: No Distress, Calm Cardiovascular: Yes: Regular Rate and Rhythm Respiratory: Yes: Diminished (slightly, on Rt chest), Other (Lt chest drain in place) Gastrointestinal: Yes: Normal Bowel Sounds, Soft Extremities: Yes: WNL Labs: CBC, BMP 06/09/17 06:30 06/09/17 06:30 INR, PTT INR 1.16 (0.82-1.09) H 06/04/17 05:15 Microbiology 06/09/17 08:00 Sputum - Expectorated Direct Acid Fast Bacilli Smear - Final 06/06/17 16:30 Bronchial Washings - Right Medial Gram Stain - Final 06/06/17 16:30 Bronchial Washings - Right Medial Bronchoalveolar Lavage Culture - Final NORMAL RESPIRATORY WILLY 06/07/17 09:00 Sputum - Endotrachea Suction/Ventilator Mycobacteria (PCR) - Preliminary Problem List - Problems (1) Leukocytosis Code(s): D72.829 - ELEVATED WHITE BLOOD CELL COUNT, UNSPECIFIED (2) Fever Code(s): R50.9 - FEVER, UNSPECIFIED (3) Pneumonia Code(s): J18.9 - PNEUMONIA, UNSPECIFIED ORGANISM Qualifiers: Pneumonia type: due to unspecified organism Laterality: bilateral Lung location: unspecified part of lung Qualified Code(s): J18.9 - Pneumonia, unspecified organism (4) Pleural effusion associated with pulmonary infection Code(s): J18.9 - PNEUMONIA, UNSPECIFIED ORGANISM; J91.8 - PLEURAL EFFUSION IN OTHER CONDITIONS CLASSIFIED ELSEWHERE (5) Sepsis Code(s): A41.9 - SEPSIS, UNSPECIFIED ORGANISM Assessment/Plan Pt admitted with shortness of breath and severe pleuritic chest pain, fever, and leukocytosis Large pleural effusions s/p thoracentesis/catheter - Lt chest tube still in place - d/c Ceftriaxone at this point Pt afebrile, vitals stable continue monitor closely
--- NOTE | 2017-06-10 11:56 | PN ---
Progress Note (short form) - Note Progress Note: PULMONARY Taken off ventimask, saturating 90-91% on room air. Chest tube output less. Last Vital Signs Temp Pulse Resp BP Pulse Ox 98.4 F 76 16 128/58 95 06/10/17 10:12 06/10/17 10:12 06/10/17 10:12 06/10/17 10:12 06/10/17 10:07 Gen: less tachypneic at rest Heart: RRR Lung: decreased breath sounds at the bases Abd: soft, nontender Ext: no edema Chest tube: serous drainage, no air leaks CBC, BMP 06/09/17 06:30 06/09/17 06:30 Active Medications Acetaminophen (Tylenol -) 650 mg PO Q6H PRN PRN Reason: FEVER OR PAIN Last Admin: 06/09/17 04:40 Dose: 650 mg Albuterol/Ipratropium (Duoneb -) 1 amp NEB Q4H PRN Docusate Sodium (Colace -) 100 mg PO TID PRN PRN Reason: CONSTIPATION Hydromorphone HCl (Dilaudid Injection -) 1 mg IVPUSH Q4H PRN PRN Reason: PAIN Ibuprofen (Motrin -) 400 mg PO Q6H PRN PRN Reason: PAIN Last Admin: 06/09/17 06:06 Dose: 400 mg Ondansetron HCl (Zofran Injection) 4 mg IVPUSH Q6H PRN PRN Reason: NAUSEA AND/OR VOMITING Tramadol HCl (Ultram -) 50 mg PO Q6H PRN PRN Reason: PAIN Last Admin: 06/09/17 08:37 Dose: 50 mg A/P Acute Hypoxic Respiratory Failure improving Pneumonia Pleural Effusions - antibiotics per ID - monitor chest tube outputs - can d/c chest tubes if less than <150mL/24hr - pain control - incentive spirometry - O2 to keep Spo2 >90% - DVT prophylaxis Problem List - Problems (1) Pneumonia Code(s): J18.9 - PNEUMONIA, UNSPECIFIED ORGANISM Qualifiers: Pneumonia type: due to unspecified organism Laterality: bilateral Lung location: unspecified part of lung Qualified Code(s): J18.9 - Pneumonia, unspecified organism
--- NOTE | 2017-06-10 15:26 | PN ---
Progress Note, Physician History of Present Illness: doing well - Current Medication List Current Medications: Active Medications Acetaminophen (Tylenol -) 650 mg PO Q6H PRN PRN Reason: FEVER OR PAIN Last Admin: 06/09/17 04:40 Dose: 650 mg Albuterol/Ipratropium (Duoneb -) 1 amp NEB Q4H PRN Docusate Sodium (Colace -) 100 mg PO TID PRN PRN Reason: CONSTIPATION Hydromorphone HCl (Dilaudid Injection -) 1 mg IVPUSH Q4H PRN PRN Reason: PAIN Ibuprofen (Motrin -) 400 mg PO Q6H PRN PRN Reason: PAIN Last Admin: 06/09/17 06:06 Dose: 400 mg Ondansetron HCl (Zofran Injection) 4 mg IVPUSH Q6H PRN PRN Reason: NAUSEA AND/OR VOMITING Tramadol HCl (Ultram -) 50 mg PO Q6H PRN PRN Reason: PAIN Last Admin: 06/09/17 08:37 Dose: 50 mg - Objective Vital Signs: Vital Signs Temperature 98.4 F 06/10/17 14:20 Pulse Rate 72 06/10/17 14:20 Respiratory Rate 16 06/10/17 14:20 Blood Pressure 120/80 06/10/17 14:20 O2 Sat by Pulse Oximetry (%) 95 06/10/17 10:07 Constitutional: Yes: No Distress HENT: Yes: Atraumatic Neck: Yes: Supple Cardiovascular: Yes: Regular Rate and Rhythm Respiratory: Yes: CTA Bilaterally, Other (chest tub ein place) Gastrointestinal: Yes: Normal Bowel Sounds Extremities: Yes: WNL Neurological: Yes: Alert, Oriented Labs: CBC, BMP 06/09/17 06:30 06/09/17 06:30 INR, PTT INR 1.16 (0.82-1.09) H 06/04/17 05:15 Problem List - Problems (1) Pneumonia Assessment/Plan: off of abx has chest tube doing well Code(s): J18.9 - PNEUMONIA, UNSPECIFIED ORGANISM Qualifiers: Pneumonia type: due to unspecified organism Laterality: bilateral Lung location: unspecified part of lung Qualified Code(s): J18.9 - Pneumonia, unspecified organism (2) Fever Code(s): R50.9 - FEVER, UNSPECIFIED (3) Leukocytosis Code(s): D72.829 - ELEVATED WHITE BLOOD CELL COUNT, UNSPECIFIED (4) Pleural effusion associated with pulmonary infection Code(s): J18.9 - PNEUMONIA, UNSPECIFIED ORGANISM; J91.8 - PLEURAL EFFUSION IN OTHER CONDITIONS CLASSIFIED ELSEWHERE (5) Sepsis Code(s): A41.9 - SEPSIS, UNSPECIFIED ORGANISM
[2017-06-11] MEDS ORDERED: FUROSEMIDE 40 MG/4 ML INJECTABLE VIAL IVPUSH ONE (10:56)
--- NOTE | 2017-06-11 10:56 | PN ---
Progress Note (short form) - Note Progress Note: PULMONARY Denies shortness of breath, saturating 90-91% on room air. Chest tube output less. Last Vital Signs Temp Pulse Resp BP Pulse Ox 98.6 F 63 20 126/64 95 06/11/17 06:00 06/11/17 06:00 06/11/17 06:00 06/11/17 06:00 06/10/17 21:00 Gen: less tachypneic at rest Heart: RRR Lung: decreased breath sounds at the bases Abd: soft, nontender Ext: no edema Chest tube: serous drainage, no air leaks CBC, BMP 06/09/17 06:30 06/09/17 06:30 Active Medications Acetaminophen (Tylenol -) 650 mg PO Q6H PRN PRN Reason: FEVER OR PAIN Last Admin: 06/09/17 04:40 Dose: 650 mg Albuterol/Ipratropium (Duoneb -) 1 amp NEB Q4H PRN Docusate Sodium (Colace -) 100 mg PO TID PRN PRN Reason: CONSTIPATION Hydromorphone HCl (Dilaudid Injection -) 1 mg IVPUSH Q4H PRN PRN Reason: PAIN Ondansetron HCl (Zofran Injection) 4 mg IVPUSH Q6H PRN PRN Reason: NAUSEA AND/OR VOMITING Tramadol HCl (Ultram -) 50 mg PO Q6H PRN PRN Reason: PAIN Last Admin: 06/09/17 08:37 Dose: 50 mg A/P Acute Hypoxic Respiratory Failure improving Pneumonia Pleural Effusions - antibiotics per ID - place chest tubes to water seal - monitor chest tube outputs - CXR in AM - will give lasix today - can likely d/c left pigtail in AM - pain control - incentive spirometry - O2 to keep Spo2 >90% - DVT prophylaxis Problem List - Problems (1) Pneumonia Code(s): J18.9 - PNEUMONIA, UNSPECIFIED ORGANISM Qualifiers: Pneumonia type: due to unspecified organism Laterality: bilateral Lung location: unspecified part of lung Qualified Code(s): J18.9 - Pneumonia, unspecified organism
--- NOTE | 2017-06-11 15:48 | PATH ---
Cytology Non-Gynecological Report Patient Name: YANG GARCIA Med. Rec. #: [id number] /Age/Gender: 1980 (Age: 37) / M Account: [id number] Location: [facility] MED/SURG Taken: 06/06/2017 Received: 06/07/2017 Reported: 06/11/2017 Physicians: Yogi Oneal M.D. Specimen(s) Received BRONCHIAL WASHINGS RIGHT LUNG Clinical History Pneumonia Final Diagnosis BRONCHIAL WASHINGS, LUNG, RIGHT, FOR CYTOLOGY: SATISFACTORY FOR EVALUATION NO MALIGNANT CELLS IDENTIFIED. MACROPHAGES, FEW SQUAMOUS CELLS, AND BRONCHIAL CELLS PRESENT. Electronically Signed Carmelita Pryor M.D. Gross Description A. Approximately 10 cc of clear fluid received fixed in 50% alcohol. Two cytofunnels and one cellblock prepared.
--- NOTE | 2017-06-11 16:18 | PN ---
Progress Note, Physician History of Present Illness: Pt states he feels much better. Remains afebrile, no shortness of breath. No new complaints. - Current Medication List Current Medications: Active Medications Acetaminophen (Tylenol -) 650 mg PO Q6H PRN PRN Reason: FEVER OR PAIN Last Admin: 06/09/17 04:40 Dose: 650 mg Albuterol/Ipratropium (Duoneb -) 1 amp NEB Q4H PRN Docusate Sodium (Colace -) 100 mg PO TID PRN PRN Reason: CONSTIPATION Hydromorphone HCl (Dilaudid Injection -) 1 mg IVPUSH Q4H PRN PRN Reason: PAIN Ondansetron HCl (Zofran Injection) 4 mg IVPUSH Q6H PRN PRN Reason: NAUSEA AND/OR VOMITING Tramadol HCl (Ultram -) 50 mg PO Q6H PRN PRN Reason: PAIN Last Admin: 06/09/17 08:37 Dose: 50 mg - Objective Vital Signs: Vital Signs Temperature 98.6 F 06/11/17 14:00 Pulse Rate 83 06/11/17 14:00 Respiratory Rate 20 06/11/17 14:00 Blood Pressure 115/70 06/11/17 14:00 O2 Sat by Pulse Oximetry (%) 95 06/10/17 21:00 Constitutional: Yes: No Distress Neck: Yes: Supple Cardiovascular: Yes: Regular Rate and Rhythm Respiratory: Yes: Rales (Rt base, Rt Chest tube in place) Gastrointestinal: Yes: Normal Bowel Sounds Extremities: Yes: WNL Neurological: Yes: Alert Labs: CBC, BMP 06/09/17 06:30 06/09/17 06:30 INR, PTT INR 1.16 (0.82-1.09) H 06/04/17 05:15 Problem List - Problems (1) Leukocytosis Code(s): D72.829 - ELEVATED WHITE BLOOD CELL COUNT, UNSPECIFIED (2) Fever Code(s): R50.9 - FEVER, UNSPECIFIED (3) Pneumonia Code(s): J18.9 - PNEUMONIA, UNSPECIFIED ORGANISM Qualifiers: Pneumonia type: due to unspecified organism Laterality: bilateral Lung location: unspecified part of lung Qualified Code(s): J18.9 - Pneumonia, unspecified organism (4) Pleural effusion associated with pulmonary infection Code(s): J18.9 - PNEUMONIA, UNSPECIFIED ORGANISM; J91.8 - PLEURAL EFFUSION IN OTHER CONDITIONS CLASSIFIED ELSEWHERE (5) Sepsis Code(s): A41.9 - SEPSIS, UNSPECIFIED ORGANISM Assessment/Plan Pt admitted with shortness of breath and severe pleuritic chest pain, fever, and leukocytosis Large pleural effusions s/p thoracentesis/chest tubes - all culture/ prelim microbiology results negative - s/p course of antibiotics - Rt chest tube with less drainage clinically improved
--- NOTE | 2017-06-11 21:35 | PN ---
Progress Note, Physician - Current Medication List Current Medications: Active Medications Acetaminophen (Tylenol -) 650 mg PO Q6H PRN PRN Reason: FEVER OR PAIN Last Admin: 06/09/17 04:40 Dose: 650 mg Albuterol/Ipratropium (Duoneb -) 1 amp NEB Q4H PRN Docusate Sodium (Colace -) 100 mg PO TID PRN PRN Reason: CONSTIPATION Hydromorphone HCl (Dilaudid Injection -) 1 mg IVPUSH Q4H PRN PRN Reason: PAIN Ondansetron HCl (Zofran Injection) 4 mg IVPUSH Q6H PRN PRN Reason: NAUSEA AND/OR VOMITING - Objective Vital Signs: Vital Signs Temperature 98.8 F 06/11/17 16:30 Pulse Rate 80 06/11/17 16:30 Respiratory Rate 18 06/11/17 16:30 Blood Pressure 125/69 06/11/17 16:30 O2 Sat by Pulse Oximetry (%) 94 L 06/11/17 09:00 Constitutional: Yes: No Distress HENT: Yes: Atraumatic Neck: Yes: Supple Cardiovascular: Yes: Regular Rate and Rhythm Respiratory: Yes: CTA Bilaterally Gastrointestinal: Yes: Normal Bowel Sounds Extremities: Yes: WNL Neurological: Yes: Alert, Oriented Labs: CBC, BMP 06/09/17 06:30 06/09/17 06:30 INR, PTT INR 1.16 (0.82-1.09) H 06/04/17 05:15 Problem List - Problems (1) Pneumonia Assessment/Plan: off of abx has chest tube doing well Code(s): J18.9 - PNEUMONIA, UNSPECIFIED ORGANISM Qualifiers: Pneumonia type: due to unspecified organism Laterality: bilateral Lung location: unspecified part of lung Qualified Code(s): J18.9 - Pneumonia, unspecified organism (2) Fever Assessment/Plan: afebrile Code(s): R50.9 - FEVER, UNSPECIFIED (3) Leukocytosis Assessment/Plan: wbc TRENDING OWN Code(s): D72.829 - ELEVATED WHITE BLOOD CELL COUNT, UNSPECIFIED (4) Pleural effusion associated with pulmonary infection Code(s): J18.9 - PNEUMONIA, UNSPECIFIED ORGANISM; J91.8 - PLEURAL EFFUSION IN OTHER CONDITIONS CLASSIFIED ELSEWHERE (5) Sepsis Code(s): A41.9 - SEPSIS, UNSPECIFIED ORGANISM
[2017-06-12] MEDS ORDERED: FUROSEMIDE 40 MG/4 ML INJECTABLE VIAL IVPUSH ONE (11:21)
--- NOTE | 2017-06-12 11:21 | PN ---
Progress Note (short form) - Note Progress Note: PULMONARY Denies shortness of breath, saturating 90-91% on room air. Chest tube output less. Diuresed well with lasix. CXR this AM improved. Last Vital Signs Temp Pulse Resp BP Pulse Ox 98.4 F 60 20 123/55 96 06/12/17 03:13 06/12/17 03:13 06/12/17 03:13 06/12/17 03:13 06/11/17 21:00 Gen: NAD at rest Heart: RRR Lung: decreased breath sounds at the bases Abd: soft, nontender Ext: no edema Chest tube: serous drainage, no air leaks CBC, BMP 06/09/17 06:30 06/09/17 06:30 Active Medications Acetaminophen (Tylenol -) 650 mg PO Q6H PRN PRN Reason: FEVER OR PAIN Last Admin: 06/09/17 04:40 Dose: 650 mg Albuterol/Ipratropium (Duoneb -) 1 amp NEB Q4H PRN Docusate Sodium (Colace -) 100 mg PO TID PRN PRN Reason: CONSTIPATION Hydromorphone HCl (Dilaudid Injection -) 1 mg IVPUSH Q4H PRN PRN Reason: PAIN Ondansetron HCl (Zofran Injection) 4 mg IVPUSH Q6H PRN PRN Reason: NAUSEA AND/OR VOMITING A/P Acute Hypoxic Respiratory Failure improving Pneumonia Pleural Effusions - d/c'd left pigtail - monitor chest tube outputs - CXR in AM - will give lasix today - can likely d/c right pigtail in AM - pain control - incentive spirometry - O2 to keep Spo2 >90% - DVT prophylaxis Problem List - Problems (1) Pneumonia Code(s): J18.9 - PNEUMONIA, UNSPECIFIED ORGANISM Qualifiers: Pneumonia type: due to unspecified organism Laterality: bilateral Lung location: unspecified part of lung Qualified Code(s): J18.9 - Pneumonia, unspecified organism
--- NOTE | 2017-06-12 11:40 | OPR ---
Patient Name: Ozzie Ortiz MR#: [id number] Procedure Date: 06/06/2017 Preoperative Diagnosis: Bilateral pneumonitis and pleuritis Postoperative Diagnosis: Same Procedure: 1. Bronchoscopy; 2. Placement of left chest tube. Indication: As above. Surgeon(s): Reyes Harris MD Cosurgeon: william Party Plan Sales Agent Surgeon: william; Anesthesia: General endotracheal; Findings: Acute desaturation after intubation, worsened after bronchoscopy; Chest x-ray showed left upper lobe collapse despite multiple bronchoscopies; improved after placement of left chest tube and repeat bronchoscopy; slow improvement in oxygenation after. Specimens Sent: 1. Na. Complications: none Drains / Tubes / Catheters: na Hardware / Implants: na Blood / Fluid Losses: minimal Post-Operative Condition: Hemodynamically stable to PACU. Indications: This patient is a 37 year-old male smoker who presented with right flank pain and was found to have bilateral pneumonitis progressing to bilateral effusions. He had profound hypoxia requiring ICU admission. Chest tubes were placed bilaterally and he slowly improved with supportive care and antibiotics. No organisms grew. The right side was worse and partially loculated. After discussion with Dr. Lawton, we thought that the window to prevent a later decortication was right as he had less oxygen requirements. We explained the risks, benefits, and alternatives of the procedure and the patient agreed and understood. Details of Procedure: The patient was taken into the operating room and placed supine on the table. He was monitored with pulse oximetry and blood pressure monitoring. He was given sedation and intubated. He desaturated immediately. A bronchoscopy was performed. There were no plugs. Cultures were sent and he further desaturated after bronchoscopy. The anesthesiologist, Dr. Jordan, bagged him and he improved slightly but was still hypoxic. A chest x-ray then showed left upper lobe collapse despite multiple bronchoscopies. A chest tube was placed in the left chest and a bronchoscopy was repeated. A repeat chest x-ray showed expansion. Next, we were able to get his saturations into the high 80s, and low 90s. The right VATS was aborted and he was taken to the ICU where he stabilized on that ventilator. He remained intubated overnight and gradually improved.
--- NOTE | 2017-06-12 17:38 | PN ---
Progress Note, Physician History of Present Illness: Pt states he feels well. Remains afebrile. No new complaints. - Current Medication List Current Medications: Active Medications Acetaminophen (Tylenol -) 650 mg PO Q6H PRN PRN Reason: FEVER OR PAIN Last Admin: 06/09/17 04:40 Dose: 650 mg Albuterol/Ipratropium (Duoneb -) 1 amp NEB Q4H PRN Docusate Sodium (Colace -) 100 mg PO TID PRN PRN Reason: CONSTIPATION Hydromorphone HCl (Dilaudid Injection -) 1 mg IVPUSH Q4H PRN PRN Reason: PAIN Ondansetron HCl (Zofran Injection) 4 mg IVPUSH Q6H PRN PRN Reason: NAUSEA AND/OR VOMITING - Objective Vital Signs: Vital Signs Temperature 98.8 F 06/12/17 15:58 Pulse Rate 74 06/12/17 15:58 Respiratory Rate 18 06/12/17 15:58 Blood Pressure 118/61 06/12/17 15:58 O2 Sat by Pulse Oximetry (%) 96 06/11/17 21:00 Constitutional: Yes: No Distress, Calm Cardiovascular: Yes: Regular Rate and Rhythm Respiratory: Yes: Diminished (Rt base), Other (Rt chest tube) Gastrointestinal: Yes: Normal Bowel Sounds, Soft Genitourinary: Yes: WNL Neurological: Yes: Alert, Oriented Labs: CBC, BMP 06/09/17 06:30 06/09/17 06:30 INR, PTT INR 1.16 (0.82-1.09) H 06/04/17 05:15 Problem List - Problems (1) Leukocytosis Code(s): D72.829 - ELEVATED WHITE BLOOD CELL COUNT, UNSPECIFIED (2) Fever Code(s): R50.9 - FEVER, UNSPECIFIED (3) Pneumonia Code(s): J18.9 - PNEUMONIA, UNSPECIFIED ORGANISM Qualifiers: Pneumonia type: due to unspecified organism Laterality: bilateral Lung location: unspecified part of lung Qualified Code(s): J18.9 - Pneumonia, unspecified organism (4) Pleural effusion associated with pulmonary infection Code(s): J18.9 - PNEUMONIA, UNSPECIFIED ORGANISM; J91.8 - PLEURAL EFFUSION IN OTHER CONDITIONS CLASSIFIED ELSEWHERE (5) Sepsis Code(s): A41.9 - SEPSIS, UNSPECIFIED ORGANISM Assessment/Plan Pt admitted with shortness of breath and severe pleuritic chest pain, fever, and leukocytosis Large pleural effusions s/p thoracentesis/chest tubes - monitor off antibiotics at this point - Rt chest tube to be removed clinically stable at this time
--- NOTE | 2017-06-12 22:21 | PN ---
Progress Note, Physician History of Present Illness: doing well - Current Medication List Current Medications: Active Medications Acetaminophen (Tylenol -) 650 mg PO Q6H PRN PRN Reason: FEVER OR PAIN Last Admin: 06/09/17 04:40 Dose: 650 mg Albuterol/Ipratropium (Duoneb -) 1 amp NEB Q4H PRN Docusate Sodium (Colace -) 100 mg PO TID PRN PRN Reason: CONSTIPATION Hydromorphone HCl (Dilaudid Injection -) 1 mg IVPUSH Q4H PRN PRN Reason: PAIN Ondansetron HCl (Zofran Injection) 4 mg IVPUSH Q6H PRN PRN Reason: NAUSEA AND/OR VOMITING - Objective Vital Signs: Vital Signs Temperature 99.3 F 06/12/17 18:00 Pulse Rate 69 06/12/17 18:00 Respiratory Rate 18 06/12/17 18:00 Blood Pressure 128/56 06/12/17 18:00 O2 Sat by Pulse Oximetry (%) 94 L 06/12/17 09:00 Constitutional: Yes: No Distress HENT: Yes: Atraumatic Neck: Yes: Supple Cardiovascular: Yes: Regular Rate and Rhythm Respiratory: Yes: CTA Bilaterally Gastrointestinal: Yes: Normal Bowel Sounds Extremities: Yes: WNL Edema: Yes Neurological: Yes: Alert, Oriented Labs: CBC, BMP 06/09/17 06:30 06/09/17 06:30 INR, PTT INR 1.16 (0.82-1.09) H 06/04/17 05:15 Problem List - Problems (1) Pneumonia Assessment/Plan: off of abx has chest tube..R doing well Code(s): J18.9 - PNEUMONIA, UNSPECIFIED ORGANISM Qualifiers: Pneumonia type: due to unspecified organism Laterality: bilateral Lung location: unspecified part of lung Qualified Code(s): J18.9 - Pneumonia, unspecified organism (2) Fever Assessment/Plan: afebrile Code(s): R50.9 - FEVER, UNSPECIFIED (3) Leukocytosis Assessment/Plan: wbc TRENDING DOWN Code(s): D72.829 - ELEVATED WHITE BLOOD CELL COUNT, UNSPECIFIED (4) Pleural effusion associated with pulmonary infection Code(s): J18.9 - PNEUMONIA, UNSPECIFIED ORGANISM; J91.8 - PLEURAL EFFUSION IN OTHER CONDITIONS CLASSIFIED ELSEWHERE (5) Sepsis Assessment/Plan: RESOLVED Code(s): A41.9 - SEPSIS, UNSPECIFIED ORGANISM
[2017-06-13 08:14] LABS: BASO % 0.9 % (0-2.0); EOS % 2.8 % (0-4.5); MCH 31.1 pg (25.7-33.7); MCHC 33.4 g/dl (32.0-35.9); MEAN PLT VOLUME 7.5 fl (7.5-11.1); NEUT % 66.5 % (42.8-82.8); PLATELET COUNT 271 K/MM3 (134-434); RDW 13.1 % (11.9-15.9); WHITE BLOOD COUNT 8.1 K/mm3 (4.0-10.0)
[2017-06-13 08:45] LABS: ANION GAP 9 (8-16); CALCIUM 8.4 mg/dL (8.5-10.1); CO2 28 mmol/L (21-32); CREATININE 0.7 mg/dL (0.7-1.3); GLUCOSE,RANDOM 78 mg/dL (74-106); MAGNESIUM 1.9 mg/dL (1.8-2.4); PHOSPHOROUS 4.1 mg/dL (2.5-4.9)
--- NOTE | 2017-06-13 11:58 | PN ---
Progress Note, Physician History of Present Illness: pulmonary alert,no complaints,-cob,-cough,-cp.pts pigtail removed w/o complications - Current Medication List Current Medications: Active Medications Acetaminophen (Tylenol -) 650 mg PO Q6H PRN PRN Reason: FEVER OR PAIN Last Admin: 06/09/17 04:40 Dose: 650 mg Albuterol/Ipratropium (Duoneb -) 1 amp NEB Q4H PRN Docusate Sodium (Colace -) 100 mg PO TID PRN PRN Reason: CONSTIPATION Hydromorphone HCl (Dilaudid Injection -) 1 mg IVPUSH Q4H PRN PRN Reason: PAIN Ondansetron HCl (Zofran Injection) 4 mg IVPUSH Q6H PRN PRN Reason: NAUSEA AND/OR VOMITING - Objective Vital Signs: Vital Signs Temperature 98.3 F 06/13/17 06:00 Pulse Rate 69 06/13/17 06:00 Respiratory Rate 20 06/13/17 06:00 Blood Pressure 123/60 06/13/17 06:00 O2 Sat by Pulse Oximetry (%) 94 L 06/12/17 21:00 Constitutional: Yes: Well Nourished, Calm Eyes: Yes: WNL HENT: Yes: WNL Neck: Yes: WNL Cardiovascular: Yes: Regular Rate and Rhythm, S1, S2 Respiratory: Yes: CTA Bilaterally Gastrointestinal: Yes: Normal Bowel Sounds, Soft Extremities: Yes: WNL Edema: No Labs: CBC, BMP 06/13/17 06:30 06/13/17 06:30 INR, PTT INR 1.16 (0.82-1.09) H 06/04/17 05:15 - ....Imaging Chest X-ray: Report Reviewed, Image Reviewed Assessment/Plan s/p Acute Hypoxic Respiratory Failure improving Pneumonia IMPROVING Pleural Effusions - - pain control - incentive spirometry - O2 to keep Spo2 >90% - DVT prophylaxis DR HANSON Problem List - Problems (1) Pneumonia Code(s): J18.9 - PNEUMONIA, UNSPECIFIED ORGANISM Qualifiers: Pneumonia type: due to unspecified organism Laterality: bilateral Lung location: unspecified part of lung Qualified Code(s): J18.9 - Pneumonia, unspecified organism
[2017-06-13 13:03] VITALS: BP 111/63; PULSE 66; TEMP 98.1
--- NOTE | 2017-06-13 14:19 | PN ---
Progress Note, Physician History of Present Illness: Pt states he feels very good. Denies shortness of breath/cough, fever, or chills. Rt CT drain removed. - Current Medication List Current Medications: Active Medications Acetaminophen (Tylenol -) 650 mg PO Q6H PRN PRN Reason: FEVER OR PAIN Last Admin: 06/09/17 04:40 Dose: 650 mg Albuterol/Ipratropium (Duoneb -) 1 amp NEB Q4H PRN Docusate Sodium (Colace -) 100 mg PO TID PRN PRN Reason: CONSTIPATION Hydromorphone HCl (Dilaudid Injection -) 1 mg IVPUSH Q4H PRN PRN Reason: PAIN Ondansetron HCl (Zofran Injection) 4 mg IVPUSH Q6H PRN PRN Reason: NAUSEA AND/OR VOMITING - Objective Vital Signs: Vital Signs Temperature 98.1 F 06/13/17 10:00 Pulse Rate 66 06/13/17 10:00 Respiratory Rate 18 06/13/17 10:00 Blood Pressure 111/63 06/13/17 10:00 O2 Sat by Pulse Oximetry (%) 95 06/13/17 09:00 Constitutional: Yes: No Distress, Calm Neck: Yes: Supple Cardiovascular: Yes: Regular Rate and Rhythm Respiratory: Yes: CTA Bilaterally Gastrointestinal: Yes: Normal Bowel Sounds, Soft Genitourinary: Yes: WNL Neurological: Yes: Alert, Oriented Labs: CBC, BMP 06/13/17 06:30 06/13/17 06:30 INR, PTT INR 1.16 (0.82-1.09) H 06/04/17 05:15 Problem List - Problems (1) Leukocytosis Code(s): D72.829 - ELEVATED WHITE BLOOD CELL COUNT, UNSPECIFIED (2) Fever Code(s): R50.9 - FEVER, UNSPECIFIED (3) Pneumonia Code(s): J18.9 - PNEUMONIA, UNSPECIFIED ORGANISM Qualifiers: Pneumonia type: due to unspecified organism Laterality: bilateral Lung location: unspecified part of lung Qualified Code(s): J18.9 - Pneumonia, unspecified organism (4) Pleural effusion associated with pulmonary infection Code(s): J18.9 - PNEUMONIA, UNSPECIFIED ORGANISM; J91.8 - PLEURAL EFFUSION IN OTHER CONDITIONS CLASSIFIED ELSEWHERE (5) Sepsis Code(s): A41.9 - SEPSIS, UNSPECIFIED ORGANISM Assessment/Plan Pt admitted with shortness of breath and severe pleuritic chest pain, fever, and leukocytosis Large pleural effusions s/p thoracentesis/chest tubes - now removed - pt has clinically improved - off antibiotics at this point clinically stable at this time
--- NOTE | 2017-06-13 18:56 | DS ---
Physical Examination Vital Signs: Vital Signs Temperature 98.1 F 06/13/17 10:00 Pulse Rate 66 06/13/17 10:00 Respiratory Rate 18 06/13/17 10:00 Blood Pressure 111/63 06/13/17 10:00 O2 Sat by Pulse Oximetry (%) 95 06/13/17 09:00 Constitutional: Yes: No Distress HENT: Yes: Atraumatic Neck: Yes: Supple Cardiovascular: Yes: Regular Rate and Rhythm Respiratory: Yes: CTA Bilaterally Gastrointestinal: Yes: Normal Bowel Sounds Extremities: Yes: WNL Neurological: Yes: Alert, Oriented Labs: CBC, BMP 06/13/17 06:30 06/13/17 06:30 Discharge Summary Reason For Visit: PNEUMONIA Current Active Problems Fever (Acute) Leukocytosis (Acute) Pleural effusion associated with pulmonary infection (Acute) Pneumonia (Acute) Sepsis (Acute) Condition: Stable - Instructions - Home Medications Comprehensive Discharge Medication List: Ambulatory Orders Albuterol Sulfate Inhaler - [Ventolin HFA Inhaler -] 1 puff IH Q4H #2 inhaler [place] HOME
== END 2017-06-13 19:20 | disposition home or self-care (01) | DRG 720 ==
LOC: JER 13:26 → JERBED 16:51 → J5S 20:41 → JICU 06-01 18:25 → J8W 06-08 19:48
PROVIDERS: ADMIT Internal Medicine; ATTEND Internal Medicine
PROC: 0W9B3ZZ Drainage of Left Pleural Cavity, Percutaneous Approach (ICD-10-PCS; principal; 2017-06-01)
PROC: 0W9930Z Drainage of Right Pleural Cavity with Drainage Device, Percutaneous Approach (ICD-10-PCS; 2017-06-02)
PROC: BB4BZZZ Ultrasonography of Pleura (ICD-10-PCS; 2017-06-02)
PROC: 0W9B30Z Drainage of Left Pleural Cavity with Drainage Device, Percutaneous Approach (ICD-10-PCS; 2017-06-04)
PROC: 0BJ08ZZ Inspection of Tracheobronchial Tree, Via Natural or Artificial Opening Endoscopic (ICD-10-PCS; 2017-06-06)
PROC: 0WH833Z Insertion of Infusion Device into Chest Wall, Percutaneous Approach (ICD-10-PCS; 2017-06-06)
PROC: 0B9C8ZX Drainage of Right Upper Lung Lobe, Via Natural or Artificial Opening Endoscopic, Diagnostic (ICD-10-PCS; 2017-06-06)
DX: A41.9 Sepsis, unspecified organism (principal); J96.01 Acute respiratory failure with hypoxia; J90 Pleural effusion, not elsewhere classified; J98.11 Atelectasis; R07.1 Chest pain on breathing; F17.210 Nicotine dependence, cigarettes, uncomplicated; J18.9 Pneumonia, unspecified organism; F14.10 Cocaine abuse, uncomplicated; J91.8 Pleural effusion in other conditions classified elsewhere; Z53.09 Procedure and treatment not carried out because of other contraindication; J98.19 Other pulmonary collapse
CPT/HCPCS: 36415; 36600; 71010-TC; 71020-TC; 71250-TC; 74176; 76705-TC; 76942; 80048; 80053; 81003; 82042; 82150; 82438; 82465; 82803; 82945; 83036; 83605; 83615; 83690; 83735; 83880; 83986; 84100; 84157; 84311; 84478; 85025; 85027; 85610; 86038; 86704; 86803; 86850; 86900; 86901; 86922; 87040; 87070; 87075; 87086; 87102; 87116; 87205; 87206; 87210; 87389; 87556; 87804; 87899; 88108; 88305-TC; 89051; 93005; 93010; 93306-TC; 94002; 94010; 94640; 99284-25

== ENCOUNTER 2022-06-02 16:48 | Emergency (ER) | payer OTHER ==
[2022-06-02 16:52] VITALS: BP 143/72; PULSE 73; RESP 18; TEMP 97; BMI 39.1
[2022-06-02 18:18] LABS: BASO % 0.7 % (0-2.0); EOS % 0.9 % (0-4.5); HEMATOCRIT 46.2 % (35.4-49); HEMOGLOBIN 15.5 GM/dL (11.7-16.9); LYMPH % 19.1 % (8-40); MCH 31.7 pg (25.7-33.7); MCHC 33.5 g/dl (32.0-35.9); MEAN CELL VOLUME 94.7 fl (80-96); MEAN PLT VOLUME 8.1 fl (7.5-11.1); MONO % 5.9 % (3.8-10.2); NEUT % 73.4 % (42.8-82.8); PLATELET COUNT 217 10^3/uL (134-434); RBC 4.88 M/mm3 (4.00-5.60); RDW 12.7 % (11.9-15.9); WHITE BLOOD COUNT 13.3 K/mm3 (4.0-10.0)
[2022-06-02 18:19] LABS: PH,URINE 5.5 (5.0-8.0); URINE APPEARANCE CLEAR; URINE BILIRUBIN NEGATIVE (NEGATIVE); URINE COLOR YELLOW; URINE GLUCOSE (UA) NEGATIVE (NEGATIVE); URINE KETONE 1+ (NEGATIVE); URINE LEUK ESTERASE NEGATIVE (NEGATIVE); URINE NITRITE NEGATIVE (NEGATIVE); URINE PROTEIN NEGATIVE (NEGATIVE)
[2022-06-02 18:25] LABS: INR 1.2 (0.83-1.09); PROTHROMBIN TIME (PATIENT) 13.8 SEC (9.7-13.0)
[2022-06-02 18:45] LABS: BLOOD UREA NITROGEN 8.4 mg/dL (7-18)
[2022-06-02 18:46] LABS: ALBUMIN 3.8 g/dl (3.4-5.0)
[2022-06-02 18:48] LABS: CREATININE 0.9 mg/dL (0.55-1.3)
[2022-06-02 18:50] LABS: BILIRUBIN,TOTAL 0.6 mg/dL (0.2-1); TOT PROT 7.6 g/dl (6.4-8.2)
== END 2022-06-02 21:57 | disposition home or self-care (01) ==
LOC: JERFT 16:48 → JER 16:48 → JERFT 21:57
DX: R07.1 Chest pain on breathing (principal)
CPT/HCPCS: 0241U-QW; 36415; 71046-TC-FY; 71275-TC; 80053; 81003; 83690; 84484; 85025; 85610; 93005; 93010; 99285-25; Q9967

== ENCOUNTER 2022-06-02 22:30 | Inpatient (IN) | payer OTHER ==
[2022-06-03 01:38] VITALS: BMI 38.7
[2022-06-03] MEDS ORDERED: IBUPROFEN 600 MG TABLET (FP) PO PRN (08:00)
[2022-06-03] MEDS ORDERED: MAG HYDROX/AL HYDROX/SIMETH 30 ML UNIT-DOSE CUP PO PRN (08:00)
[2022-06-03] MEDS ORDERED: NALOXONE HCL (KLOXXADO) 8 MG SPRAY NS PRN (08:00)
[2022-06-03] MEDS ORDERED: METHOCARBAMOL 500 MG TABLET PO PRN (08:00)
[2022-06-03] MEDS ORDERED: LOPERAMIDE HCL 2 MG CAPSULE PO PRN (08:00)
[2022-06-03] MEDS ORDERED: IBUPROFEN 400 MG TABLET (FP) PO PRN (08:00)
[2022-06-03] MEDS ORDERED: NICOTINE POLACRILEX 2 MG GUM BUC PRN (08:00)
[2022-06-03] MEDS ORDERED: BENZOCAINE/MENTHOL (CHLORASEPTIC ) LOZENGE MM PRN (08:00)
[2022-06-03] MEDS ORDERED: POLYETHYLENE GLYCOL (HEALTHYLAX) 3350 17 GM PACKET PO PRN (08:00)
[2022-06-03] MEDS ORDERED: MAGNESIUM HYDROX 2400MG/30ML ORAL SUSPENSION 30 ML CUP PO PRN (08:00)
[2022-06-03] MEDS ORDERED: ONDANSETRON *ODT* 4 MG TABLET SL PRN (08:00)
[2022-06-03] MEDS ORDERED: BISMUTH SUBSALICYLATE 524 MG/30 ML PO PRN (08:00)
[2022-06-03] MEDS ORDERED: DICYCLOMINE HCL 10 MG CAPSULE PO PRN (08:00)
[2022-06-03] MEDS ORDERED: ACETAMINOPHEN 325 MG TABLET (FP) PO PRN ×2 (08:00)
[2022-06-03] MEDS: NICOTINE 21 MG/24 HOURS TOPICAL PATCH TD SCH (11:11)
[2022-06-03] MEDS: PRENATAL VITAMINS W/ FOLIC ACID TABLET (FP) PO SCH (11:12)
[2022-06-03] MEDS: THIAMINE HCL 100 MG TABLET (FP) PO SCH (22:16)
[2022-06-03] MEDS: MELATONIN 5 MG TABLETS PO SCH (22:16)
[2022-06-04] MEDS: NICOTINE 21 MG/24 HOURS TOPICAL PATCH TD SCH (10:18)
[2022-06-04] MEDS: PRENATAL VITAMINS W/ FOLIC ACID TABLET (FP) PO SCH (10:19)
[2022-06-04 11:26] LABS: HEMATOCRIT 44.3 % (35.4-49); HEMOGLOBIN 14.5 GM/dL (11.7-16.9); MCH 31.4 pg (25.7-33.7); MCHC 32.7 g/dl (32.0-35.9); MEAN CELL VOLUME 96.1 fl (80-96); PLATELET COUNT 178 10^3/uL (134-434); RBC 4.61 M/mm3 (4.00-5.60); RDW 12.6 % (11.9-15.9); WHITE BLOOD COUNT 10.3 K/mm3 (4.0-10.0)
[2022-06-04 12:15] LABS: ALBUMIN 3.2 g/dl (3.4-5.0); BLOOD UREA NITROGEN 11.6 mg/dL (7-18); CALCIUM 8.6 mg/dL (8.5-10.1)
[2022-06-04 12:18] LABS: CREATININE 0.8 mg/dL (0.55-1.3)
[2022-06-04 12:19] LABS: BILIRUBIN,TOTAL 0.4 mg/dL (0.2-1)
[2022-06-04 12:20] LABS: TOT PROT 6.5 g/dl (6.4-8.2)
[2022-06-04] MEDS: MELATONIN 5 MG TABLETS PO SCH (22:34)
[2022-06-04] MEDS: THIAMINE HCL 100 MG TABLET (FP) PO SCH (22:34)
[2022-06-04] MEDS: BENZOCAINE 28 GM HEMORRHOIDAL OINTMENT RC SCH (23:10)
[2022-06-05] MEDS: NICOTINE 21 MG/24 HOURS TOPICAL PATCH TD SCH (10:03)
[2022-06-05] MEDS: BENZOCAINE 28 GM HEMORRHOIDAL OINTMENT RC SCH (10:03)
[2022-06-05] MEDS: PRENATAL VITAMINS W/ FOLIC ACID TABLET (FP) PO SCH (10:03)
[2022-06-05 16:59] VITALS: BP 130/65; PULSE 81; RESP 17; TEMP 97.3
== END 2022-06-05 18:00 | disposition other institution (70) | DRG 774 ==
LOC: YASAS 22:30 → Y6N 06-03 09:29
PROVIDERS: ADMIT Allergy & Immunology; ATTEND Surgery
PROC: HZ2ZZZZ Detoxification Services for Substance Abuse Treatment (ICD-10-PCS; principal; 2022-06-03)
DX: F10.230 Alcohol dependence with withdrawal, uncomplicated (principal); F14.20 Cocaine dependence, uncomplicated; F17.210 Nicotine dependence, cigarettes, uncomplicated; J45.20 Mild intermittent asthma, uncomplicated; Z87.01 Personal history of pneumonia (recurrent)
CPT/HCPCS: 0241U-QW; 36415; 71046-TC-FY; 71275-TC; 80053; 81003; 83690; 84484; 85025; 85027; 85610; 86780; 93005; 93010; 99285-25; C9803-CS; Q9967; U0003; U0005

== ENCOUNTER 2022-06-05 18:48 | Inpatient (IN) | payer OTHER ==
[2022-06-05 18:58] VITALS: RESP 18
[2022-06-05] MEDS ORDERED: IBUPROFEN 400 MG TABLET (FP) PO PRN (19:53)
[2022-06-05] MEDS ORDERED: MAG HYDROX/AL HYDROX/SIMETH 30 ML UNIT-DOSE CUP PO PRN (19:53)
[2022-06-05] MEDS ORDERED: LOPERAMIDE HCL 2 MG CAPSULE PO PRN (19:53)
[2022-06-05] MEDS ORDERED: P-EPHED 60MG/TRIPROLIDI 2.5MG TABLET PO PRN (19:53)
[2022-06-05] MEDS ORDERED: POLYETHYLENE GLYCOL (HEALTHYLAX) 3350 17 GM PACKET PO PRN (19:53)
[2022-06-05] MEDS ORDERED: BENZOCAINE/MENTHOL (CHLORASEPTIC ) LOZENGE MM PRN (19:53)
[2022-06-05] MEDS ORDERED: MAGNESIUM HYDROX 2400MG/30ML ORAL SUSPENSION 30 ML CUP PO PRN (19:53)
[2022-06-05] MEDS ORDERED: guaiFENesin 200 MG/10 ML 10 ML UNIT-DOSE CUPS PO PRN (19:53)
[2022-06-05] MEDS ORDERED: ACETAMINOPHEN 325 MG TABLET (FP) PO PRN (19:53)
[2022-06-05] MEDS ORDERED: ALBUTEROL SO4 HFA INHALER IH PRN (20:00)
[2022-06-05] MEDS ORDERED: NICOTINE POLACRILEX 2 MG GUM BUC PRN (21:14)
[2022-06-05] MEDS: MELATONIN 5 MG TABLETS PO SCH (21:22)
[2022-06-05] MEDS: THIAMINE HCL 100 MG TABLET (FP) PO SCH (21:22)
[2022-06-06 06:50] VITALS: TEMP 97.1
[2022-06-06] MEDS: PRENATAL VITAMINS W/ FOLIC ACID TABLET (FP) PO SCH (09:43)
[2022-06-06] MEDS ORDERED: NICOTINE 10 MG CARTRIDGE (INHALER) IH PRN (13:38)
[2022-06-06] MEDS: MELATONIN 5 MG TABLETS PO SCH (21:18)
[2022-06-06] MEDS: THIAMINE HCL 100 MG TABLET (FP) PO SCH (21:19)
[2022-06-07 07:56] VITALS: BP 117/70; PULSE 60
[2022-06-07] MEDS: PRENATAL VITAMINS W/ FOLIC ACID TABLET (FP) PO SCH (09:51)
== END 2022-06-07 12:20 | disposition home or self-care (01) | DRG 772 ==
LOC: YASAS 18:48 → Y5N 18:49
PROVIDERS: ADMIT Allergy & Immunology; ATTEND Psychiatry & Neurology Pain Medicine
PROC: HZ42ZZZ Group Counseling for Substance Abuse Treatment, Cognitive-Behavioral (ICD-10-PCS; principal; 2022-06-06)
DX: F10.20 Alcohol dependence, uncomplicated (principal); F14.20 Cocaine dependence, uncomplicated; F17.210 Nicotine dependence, cigarettes, uncomplicated; J45.909 Unspecified asthma, uncomplicated; M54.50 Low back pain, unspecified; G89.29 Other chronic pain; Z87.01 Personal history of pneumonia (recurrent)

== ENCOUNTER 2022-10-03 02:01 | Inpatient (IN) | payer OTHER ==
[2022-10-03 02:20] VITALS: RESP 18; BMI 36.3
[2022-10-03] MEDS ORDERED: DICYCLOMINE HCL 10 MG CAPSULE PO PRN (02:56)
[2022-10-03] MEDS ORDERED: guaiFENesin 600 MG TABLET.ER (FP) PO PRN (02:56)
[2022-10-03] MEDS ORDERED: BISMUTH SUBSALICYLATE 524 MG/30 ML PO PRN (02:56)
[2022-10-03] MEDS ORDERED: METHOCARBAMOL 500 MG TABLET PO PRN (02:56)
[2022-10-03] MEDS ORDERED: LOPERAMIDE HCL 2 MG CAPSULE PO PRN (02:56)
[2022-10-03] MEDS ORDERED: ACETAMINOPHEN 325 MG TABLET (FP) PO PRN (02:56)
[2022-10-03] MEDS ORDERED: POLYETHYLENE GLYCOL (HEALTHYLAX) 3350 17 GM PACKET PO PRN (02:56)
[2022-10-03] MEDS ORDERED: IBUPROFEN 600 MG TABLET (FP) PO PRN (02:56)
[2022-10-03] MEDS ORDERED: IBUPROFEN 400 MG TABLET (FP) PO PRN (02:56)
[2022-10-03] MEDS ORDERED: MAGNESIUM HYDROX 2400MG/30ML ORAL SUSPENSION 30 ML CUP PO PRN (02:56)
[2022-10-03] MEDS ORDERED: MAG HYDROX/AL HYDROX/SIMETH 30 ML UNIT-DOSE CUP PO PRN (02:56)
[2022-10-03] MEDS ORDERED: ONDANSETRON *ODT* 4 MG TABLET SL PRN (02:56)
[2022-10-03] MEDS ORDERED: NALOXONE HCL (KLOXXADO) 8 MG SPRAY NS PRN (02:56)
[2022-10-03] MEDS ORDERED: NALOXONE HCL 0.4 MG/ML VIAL IM PRN (02:56)
[2022-10-03] MEDS ORDERED: BENZOCAINE/MENTHOL (CHLORASEPTIC ) LOZENGE MM PRN (02:56)
[2022-10-03] MEDS ORDERED: NICOTINE 10 MG CARTRIDGE (INHALER) IH PRN (02:56)
[2022-10-03] MEDS ORDERED: BENZONATATE 200 MG CAPSULE PO PRN (02:56)
[2022-10-03] MEDS ORDERED: ALBUTEROL SO4 HFA INHALER IH PRN (03:02)
[2022-10-03] MEDS ORDERED: PRENATAL VITAMINS W/ FOLIC ACID TABLET (FP) PO SCH (10:00)
[2022-10-03] MEDS ORDERED: NICOTINE 14 MG/24 HOURS TOPICAL PATCH TD SCH (10:00)
[2022-10-03 11:52] LABS: HEMATOCRIT 39.9 % (35.4-49); MCH 32.3 pg (25.7-33.7); MEAN CELL VOLUME 92.5 fl (80-96); MEAN PLT VOLUME 8.8 fl (7.5-11.1); PLATELET COUNT 152 10^3/uL (134-434); RBC 4.31 M/mm3 (4.00-5.60); RDW 12.7 % (11.9-15.9)
[2022-10-03 11:58] LABS: ALBUMIN 3.3 g/dl (3.4-5.0); BLOOD UREA NITROGEN 13.5 mg/dL (7-18)
[2022-10-03 12:00] LABS: CALCIUM 9.1 mg/dL (8.5-10.1)
[2022-10-03 12:01] LABS: CREATININE 0.8 mg/dL (0.55-1.3)
[2022-10-03 12:03] LABS: BILIRUBIN,TOTAL 0.6 mg/dL (0.2-1); TOT PROT 6.8 g/dl (6.4-8.2)
[2022-10-03 12:58] VITALS: BP 105/60; PULSE 73; TEMP 98.4
[2022-10-03] MEDS ORDERED: MELATONIN 5 MG TABLETS PO SCH (22:00)
[2022-10-03] MEDS ORDERED: THIAMINE HCL 100 MG TABLET (FP) PO SCH (22:00)
== END 2022-10-03 14:40 | disposition other institution (70) | DRG 774 ==
LOC: YASAS 02:01 → UNDOADMIN 03:34 → Y3N 03:34 → UNDODISIN 14:40
PROVIDERS: ADMIT Allergy & Immunology; ATTEND Surgery
PROC: HZ2ZZZZ Detoxification Services for Substance Abuse Treatment (ICD-10-PCS; principal; 2022-10-03)
DX: F14.20 Cocaine dependence, uncomplicated (principal); F10.230 Alcohol dependence with withdrawal, uncomplicated; F17.210 Nicotine dependence, cigarettes, uncomplicated; J45.909 Unspecified asthma, uncomplicated; M54.50 Low back pain, unspecified; G89.29 Other chronic pain; Z87.01 Personal history of pneumonia (recurrent)
CPT/HCPCS: 36415; 80053; 85027; 86780; C9803-CS; U0003; U0005

== ENCOUNTER 2022-10-03 14:47 | Inpatient (IN) | payer OTHER ==
[2022-10-03] MEDS ORDERED: guaiFENesin 600 MG TABLET.ER (FP) PO PRN (15:07)
[2022-10-03] MEDS ORDERED: NALOXONE HCL 0.4 MG/ML VIAL IVPUSH PRN (15:07)
[2022-10-03] MEDS ORDERED: LOPERAMIDE HCL 2 MG CAPSULE PO PRN (15:07)
[2022-10-03] MEDS ORDERED: hydrOXYzine PAMOATE 25 MG CAPSULE (FP) PO PRN (15:07)
[2022-10-03] MEDS ORDERED: NICOTINE 21 MG/24 HOURS TOPICAL PATCH TD PRN (15:07)
[2022-10-03] MEDS ORDERED: MAGNESIUM HYDROX 2400MG/30ML ORAL SUSPENSION 30 ML CUP PO PRN (15:07)
[2022-10-03] MEDS ORDERED: NICOTINE POLACRILEX 4 MG GUM BUC PRN (15:07)
[2022-10-03] MEDS ORDERED: POLYETHYLENE GLYCOL (HEALTHYLAX) 3350 17 GM PACKET PO PRN (15:07)
[2022-10-03] MEDS ORDERED: BENZONATATE 200 MG CAPSULE PO PRN (15:07)
[2022-10-03] MEDS ORDERED: BENZOCAINE/MENTHOL (CHLORASEPTIC ) LOZENGE MM PRN (15:07)
[2022-10-03] MEDS ORDERED: NALOXONE HCL (KLOXXADO) 8 MG SPRAY NS PRN (15:07)
[2022-10-03] MEDS ORDERED: IBUPROFEN 400 MG TABLET (FP) PO PRN (15:07)
[2022-10-03] MEDS ORDERED: NICOTINE 10 MG CARTRIDGE (INHALER) IH PRN (15:07)
[2022-10-03] MEDS ORDERED: ACETAMINOPHEN 325 MG TABLET (FP) PO PRN (15:07)
[2022-10-03] MEDS ORDERED: IBUPROFEN 600 MG TABLET (FP) PO PRN (15:07)
[2022-10-03] MEDS ORDERED: MAG HYDROX/AL HYDROX/SIMETH 30 ML UNIT-DOSE CUP PO PRN (15:07)
[2022-10-03] MEDS ORDERED: METHOCARBAMOL 500 MG TABLET PO PRN (15:07)
[2022-10-03] MEDS ORDERED: ALBUTEROL SO4 HFA INHALER IH PRN (15:10)
[2022-10-03] MEDS: THIAMINE HCL 100 MG TABLET (FP) PO SCH (22:50)
[2022-10-03] MEDS: MELATONIN 5 MG TABLETS PO SCH (22:50)
[2022-10-04 06:44] VITALS: RESP 18
[2022-10-04] MEDS: PRENATAL VITAMINS W/ FOLIC ACID TABLET (FP) PO SCH (10:08)
[2022-10-04] MEDS: THIAMINE HCL 100 MG TABLET (FP) PO SCH (21:34)
[2022-10-04] MEDS: MELATONIN 5 MG TABLETS PO SCH (21:34)
[2022-10-05 06:16] VITALS: BP 145/69; PULSE 60; TEMP 96.8
[2022-10-05] MEDS: PRENATAL VITAMINS W/ FOLIC ACID TABLET (FP) PO SCH (09:33)
== END 2022-10-05 13:07 | disposition left against medical advice (07) | DRG 770 ==
LOC: YASAS 14:47 → Y3W 14:57
PROVIDERS: ADMIT Allergy & Immunology; ATTEND Psychiatry & Neurology Pain Medicine
PROC: HZ42ZZZ Group Counseling for Substance Abuse Treatment, Cognitive-Behavioral (ICD-10-PCS; principal; 2022-10-03)
DX: F14.20 Cocaine dependence, uncomplicated (principal); F10.20 Alcohol dependence, uncomplicated; F17.210 Nicotine dependence, cigarettes, uncomplicated; E72.20 Disorder of urea cycle metabolism, unspecified; J45.909 Unspecified asthma, uncomplicated; M54.50 Low back pain, unspecified; G89.29 Other chronic pain; Z87.01 Personal history of pneumonia (recurrent)
CPT/HCPCS: 36415; 82140; 86803

== ENCOUNTER 2022-10-10 05:29 | Day surgery (SDC) | payer OTHER ==
[2022-10-10] MEDS ORDERED: ACETAMINOPHEN 1000 MG/100 ML BAG IVPB ONE ×2 (06:20→11:16)
[2022-10-10] MEDS ORDERED: ACETAMINOPHEN INJECTION 100 ML IVPB ONE ×2 (06:23→12:27)
[2022-10-10 06:42] LABS: BASO % 0.4 % (0-2.0); EOS % 0.8 % (0-4.5); HEMATOCRIT 40.2 % (35.4-49); HEMOGLOBIN 14.2 GM/dL (11.7-16.9); LYMPH % 21.9 % (8-40); MCH 32.6 pg (25.7-33.7); MCHC 35.4 g/dl (32.0-35.9); MEAN CELL VOLUME 92.2 fl (80-96); MEAN PLT VOLUME 8.3 fl (7.5-11.1); MONO % 6.3 % (3.8-10.2); NEUT % 70.6 % (42.8-82.8); PLATELET COUNT 215 10^3/uL (134-434); RBC 4.36 M/mm3 (4.00-5.60); RDW 12.8 % (11.9-15.9); WHITE BLOOD COUNT 10.9 K/mm3 (4.0-10.0)
[2022-10-10 06:47] LABS: INR 1.18 (0.83-1.09); PROTHROMBIN TIME (PATIENT) 13.7 SEC (9.7-13.0)
[2022-10-10 06:50] LABS: ACTIVATED PTT 37.2 SECONDS (25.2-36.5)
[2022-10-10 06:51] LABS: POTASSIUM 3.9 mmol/L (3.5-5.1)
[2022-10-10 06:54] LABS: ALBUMIN 3.5 g/dl (3.4-5.0); BLOOD UREA NITROGEN 13.6 mg/dL (7-18); CALCIUM 8.5 mg/dL (8.5-10.1)
[2022-10-10 06:59] LABS: BILIRUBIN,TOTAL 0.6 mg/dL (0.2-1); TOT PROT 7.2 g/dl (6.4-8.2)
[2022-10-10] MEDS ORDERED: morphine CARPU-JECT 4 MG/1 ML DISP.SYRIN IVPUSH ONE (07:49)
[2022-10-10] MEDS ORDERED: SODIUM CHLORIDE 0.9% 500 ML INFUS.BAG IV ONE (07:51)
[2022-10-10] MEDS ORDERED: ONDANSETRON 4 MG/2 ML VIAL IVPUSH ONE (07:51)
[2022-10-10] MEDS ORDERED: morphine SULFATE 4 MG/ML VIAL ONE (08:05)
[2022-10-10] MEDS ORDERED: ONDANSETRON 4 MG/2 ML VIAL ONE ×2 (08:05→10:11)
[2022-10-10 08:33] LABS: EPI CELLS 4 /uL (0-25.1); HYALINE CASTS 1 /uL (0-3.1); PH,URINE 5.5 (5.0-8.0); URINE APPEARANCE CLEAR; URINE BACTERIA 20 /uL (0-1359); URINE BILIRUBIN NEGATIVE (NEGATIVE); URINE COLOR YELLOW; URINE GLUCOSE (UA) NEGATIVE (NEGATIVE); URINE KETONE TRACE (NEGATIVE); URINE LEUK ESTERASE NEGATIVE (NEGATIVE); URINE NITRITE NEGATIVE (NEGATIVE); URINE PROTEIN TRACE (NEGATIVE); URINE RBC 211 /uL (0-23.9); URINE WBC 7 /uL (0-25.8)
[2022-10-10] MEDS ORDERED: SUCCINYLCHOLINE CHLORIDE 200 MG/10 ML SYRINGE ONE (08:44)
[2022-10-10] MEDS ORDERED: PROPOFOL 20 ML ONE ×2 (08:44→10:24)
[2022-10-10] MEDS ORDERED: ROCURONIUM BROMIDE 50 MG/5 ML SYRINGE ONE (08:44)
[2022-10-10] MEDS ORDERED: MIDAZOLAM HCL 2 MG/2 ML SINGLE DOSE VIAL ONE (08:45)
[2022-10-10] MEDS ORDERED: KETOROLAC TROMETHAMINE 30 MG/1 ML VIAL IVPUSH ONE (08:54)
[2022-10-10] MEDS ORDERED: BUPIVACAINE HCL/PF 0.5% (5MG/ML) 10 ML VIAL ONE (09:04)
[2022-10-10] MEDS ORDERED: ceFAZolin SODIUM 1 GM VIAL IVPB ONE (09:30)
[2022-10-10] MEDS ORDERED: LIDOCAINE HCL 1%, 10 MG/ML (20ML VIAL) INF ONE ×2 (09:41→10:12)
[2022-10-10] MEDS ORDERED: NEOSTIGMINE METHYLSULFATE 0.5 MG/1 ML - 10 ML MDV ONE (10:10)
[2022-10-10] MEDS ORDERED: ceFAZolin SODIUM 1 GM VIAL ONE (10:11)
[2022-10-10] MEDS ORDERED: KETOROLAC TROMETHAMINE 30 MG/1 ML VIAL ONE (10:11)
[2022-10-10] MEDS ORDERED: DEXAMETHASONE SOD PHOSPHATE 4 MG/1 ML VIAL ONE (10:11)
[2022-10-10] MEDS ORDERED: GLYCOPYRROLATE 0.2 MG/1 ML VIAL ONE (10:11)
[2022-10-10] MEDS ORDERED: ALBUTEROL SO4 0.083% IH SOL 2.5 MG/3 ML VIAL.NEB. NEB ONE (11:12)
[2022-10-10] MEDS ORDERED: ONDANSETRON 4 MG/2 ML VIAL IVPUSH PRN (11:15)
[2022-10-10] MEDS ORDERED: oxyCODONE HCL 5 MG TABLET PO PRN ×2 (11:25→11:26)
[2022-10-10] MEDS ORDERED: ALBUTEROL SO4 HFA INHALER IH PRN (11:26)
[2022-10-10] MEDS ORDERED: SODIUM CHLORIDE 1,000 ML IV SCH (11:30)
[2022-10-10] MEDS ORDERED: NITROGLYCERIN 50 MG/10 ML VIAL IVPB ONE (11:42)
[2022-10-10 14:52] VITALS: RESP 18; BMI 41.6
[2022-10-10] MEDS: LACTATED RINGERS SOLUTION 1,000 ML IV SCH ×2 (15:43→19:58)
[2022-10-10] MEDS: ACETAMINOPHEN 500 MG TABLET (FP) PO SCH (17:53)
[2022-10-10] MEDS ORDERED: KETOROLAC TROMETHAMINE 30 MG/1 ML VIAL IVPUSH PRN (19:00)
[2022-10-11] MEDS: ACETAMINOPHEN 500 MG TABLET (FP) PO SCH ×2 (01:55→10:37)
[2022-10-11 02:29] VITALS: PULSE 75; TEMP 98
[2022-10-11 02:31] VITALS: BP 116/60
[2022-10-11] MEDS: LACTATED RINGERS SOLUTION 1,000 ML IV SCH ×2 (04:00→12:37)
== END 2022-10-11 14:23 | disposition home or self-care (01) ==
LOC: JER 05:29 → JASUSAT 05:30 → JERBED 08:55 → UNDOADMOB 08:55 → JERBED 13:39 → J8W 13:39 → OBSVTOIN 13:48 → INTOOBSV 13:48 → JASUSAT 10-11 14:23
PROVIDERS: ATTEND Internal Medicine
PROC: 0WQF0ZZ Repair Abdominal Wall, Open Approach (ICD-10-PCS; principal; 2022-10-10 13:00)
DX: K42.0 Umbilical hernia with obstruction, without gangrene (principal)
CPT/HCPCS: 0241U-QW; 36415; 74177-TC; 80053; 81003; 83605; 83690; 85025; 85610; 85730; 87086; 88302-TC; 93005; 93010; 94010; 94760; 99285-25; G0378

== ENCOUNTER 2023-08-04 14:54 | Emergency (ER) | payer OTHER ==
[2023-08-04 15:26] VITALS: BP 123/72; PULSE 85; RESP 18; TEMP 100.7; BMI 39.1
[2023-08-04] MEDS ORDERED: methylPREDNISolone NA SUCC 125 MG/2 ML VIAL IVPUSH ONE (16:09)
[2023-08-04] MEDS ORDERED: ACETAMINOPHEN 500 MG TABLET (FP) PO ONE (16:24)
[2023-08-04 16:25] LABS: BASO % 0.8 % (0-2.0); EOS % 0.4 % (0-4.5); HEMATOCRIT 40.9 % (35.4-49); HEMOGLOBIN 14.1 GM/dL (11.7-16.9); LYMPH % 25.1 % (8-40); MCH 32.4 pg (25.7-33.7); MCHC 34.4 g/dl (32.0-35.9); MEAN CELL VOLUME 94.2 fl (80-96); MONO % 15.9 % (3.8-10.2); NEUT % 57.8 % (42.8-82.8); RBC 4.34 M/mm3 (4.00-5.60); RDW 13.3 % (11.9-15.9); WHITE BLOOD COUNT 5.4 K/mm3 (4.0-10.0)
[2023-08-04] MEDS ORDERED: ACETAMINOPHEN 1000 MG/100 ML BAG IVPB ONE (16:33)
[2023-08-04] MEDS ORDERED: ACETAMINOPHEN INJECTION 100 ML IVPB ONE (16:34)
[2023-08-04] MEDS ORDERED: methylPREDNISolone NA SUCC 125 MG/2 ML VIAL ONE (16:35)
[2023-08-04 16:39] LABS: POTASSIUM 4.6 mmol/L (3.5-5.1)
[2023-08-04 16:40] LABS: ALBUMIN 3.3 g/dl (3.4-5.0); CALCIUM 8.3 mg/dL (8.5-10.1)
[2023-08-04 16:42] LABS: BLOOD UREA NITROGEN 10.7 mg/dL (7-18)
[2023-08-04 16:45] LABS: CREATININE 0.8 mg/dL (0.55-1.3)
[2023-08-04 16:46] LABS: BILIRUBIN,TOTAL 0.6 mg/dL (0.2-1); TOT PROT 7.4 g/dl (6.4-8.2)
[2023-08-04 17:07] LABS: MEAN PLT VOLUME 8.8 fl (7.5-11.1); PLATELET COUNT 83 10^3/uL (134-434)
[2023-08-04 17:08] LABS: PLATELET ESTIMATE DECREASED; TEAR DROP CELLS 1+
== END 2023-08-04 17:30 | disposition home or self-care (01) ==
LOC: JER 14:54
PROC: 3E033NZ Introduction of Analgesics, Hypnotics, Sedatives into Peripheral Vein, Percutaneous Approach (ICD-10-PCS; principal; 2023-08-04)
PROC: 3E033GC Introduction of Other Therapeutic Substance into Peripheral Vein, Percutaneous Approach (ICD-10-PCS; 2023-08-04)
PROC: 3E033GC Introduction of Other Therapeutic Substance into Peripheral Vein, Percutaneous Approach (ICD-10-PCS; 2023-08-04)
DX: R21 Rash and other nonspecific skin eruption (principal); J02.9 Acute pharyngitis, unspecified; R05.9 Cough, unspecified; R50.9 Fever, unspecified; R09.81 Nasal congestion; B01.9 Varicella without complication; L29.9 Pruritus, unspecified; Z20.822 Contact with and (suspected) exposure to COVID-19
CPT/HCPCS: 0241U-QW; 36415; 80053; 85025; 99284-25; J0131